=== PATIENT | male | born 1960 | race Caucasian/White ===

== ENCOUNTER 2016-12-26 16:45 | Inpatient (IN) | payer OTHER ==
--- NOTE | 2016-12-26 17:18 | PDOC ---
History of Present Illness <Adrien Frye - Last Filed: 12/26/16 17:27> - General History Source: Patient Exam Limitations: No Limitations - History of Present Illness Initial Comments: 12/26/16 17:30 Patient is a 56 year old male who was diagnosed with a 7-7.5 cm AAA 9 days ago and pending surgery who presents to the emergency department with intermittent stabbing abdominal pain for the last two hours. Patient is being evaluated for surgery by Dr. Duncan ([phone]). Patient denies any dizziness, light headedness, SOB, CP, back pain, weakness and numbness. BP 169/110 <Luis Valente - Last Filed: 12/27/16 10:18> - General Chief Complaint: Pain Stated Complaint: STOMACH PAIN Time Seen by Provider: 12/26/16 17:15 Past History <Adrien Frye - Last Filed: 12/26/16 17:27> - Past Medical History GI Disorders: Yes (AAA) HTN: Yes Other medical history: hx of alcohl abuse, cut back in november 2016 - Psycho/Social/Smoking Cessation Hx Anxiety: No Suicidal Ideation: No Smoking History: Never smoked Have you smoked in the past 12 months: No Information on smoking cessation initiated: No Hx Alcohol Use: No Drug/Substance Use Hx: No Substance Use Type: None <Luis Valente - Last Filed: 12/27/16 10:18> - Past Medical History Allergies/Adverse Reactions: Allergies Allergy/AdvReac Type Severity Reaction Status Date / Time No Known Allergies Allergy Verified 12/26/16 17:02 Home Medications: Ambulatory Orders Lisinopril 10 mg PO DAILY 12/26/16 Review of Systems - Review of Systems Able to Perform ROS?: Yes Is the patient limited Czech proficient: No Constitutional: No: Chills, Diaphoresis, Fever Respiratory: No: Shortness of Breath Cardiac (ROS): No: Chest Pain, Lightheadedness, Syncope ABD/GI: Yes: Other (intermittent stabbing abdominal pain and abdominal pulsations). No: Constipated, Diarrhea, Nausea, Vomiting : No: Dysuria Musculoskeletal: No: Back Pain Integumentary: Yes: Rash. No: Sweating Neurological: No: Headache, Numbness, Tingling, Weakness, Dizziness <uLis Valente - Last Filed: 12/27/16 10:18> *Physical Exam - Vital Signs Last Vital Signs Temp Pulse Resp BP Pulse Ox 98.8 F 86 18 139/117 100 12/26/16 17:03 12/26/16 17:03 12/26/16 17:03 12/26/16 17:03 12/26/16 17:03 <Adrien Frye - Last Filed: 12/26/16 17:27> - Vital Signs Last Vital Signs Temp Pulse Resp BP Pulse Ox 98.8 F 86 18 139/117 100 12/26/16 17:03 12/26/16 17:03 12/26/16 17:03 12/26/16 17:03 12/26/16 17:03 - Physical Exam General Appearance: Yes: Nourished, Appropriately Dressed. No: Apparent Distress HEENT: positive: EOMI, JENNIFER, Normal ENT Inspection Neck: positive: Supple. negative: Tender Respiratory/Chest: positive: Lungs Clear, Normal Breath Sounds. negative: Chest Tender, Respiratory Distress Cardiovascular: positive: Regular Rhythm, Regular Rate Comments:: 12/26/16 19:33 Equal pulses and BP in both arms Gastrointestinal/Abdominal: positive: Normal Bowel Sounds, Flat, Pulsatile Mass (right medial). negative: Tender, Distended Musculoskeletal: positive: Normal Inspection Integumentary: positive: Rash (chest) Neurologic: positive: couturiere II-XII NML intact, Fully Oriented, Alert, Normal Mood/ Affect <Luis Valente - Last Filed: 12/27/16 10:18> ED Treatment Course - LABORATORY CBC & Chemistry Diagram: 12/27/16 07:24 12/26/16 17:35 - RADIOLOGY Radiograph Interpretation: [id number] EXAM#: TYPE/EXAM: RESULT: [id number] CT/CHEST CTA CT/ABDOMEN CTA W/WO CONTRAST CT angiogram of the chest, abdomen, and pelvis: HISTORY: Abdominal aortic aneurysm. Rule out rupture. CT angiogram of the chest, abdomen, and pelvis is performed with intravenous contrast. 100 cc of Omnipaque 350 was injected intravenously. Axial images were obtained from the thoracic inlet through the pubic symphysis. Coronal and sagittal reconstructions are also provided. One or more of the following dose reduction techniques were used: automated exposure control, adjustment of the mA and/or kV according to patient size, use of iterative reconstruction technique. No comparison available. CHEST: Lungs/airway/pleura: Within normal limits. Heart and great vessels are within normal limits. Mediastinum and gutierrez are within normal limits. Chest wall and lower neck are within normal limits. ABDOMEN: The liver is unremarkable. The bile ducts are normal in caliber. No calcified gallstones are seen in the gallbladder and there is no gallbladder wall thickening. Pancreas is unremarkable. The spleen and adrenal glands are unremarkable. There is an 8 mm nonobstructing calcification in the inferior pole of the left kidney. There is no hydronephrosis. There is no significant intra-abdominal lymphadenopathy. The stomach and small and large bowel are unremarkable. Pelvis: The prostate gland appears enlarged. There is no significant pelvic lymphadenopathy. Vessels: There is a large fusiform aneurysmal dilatation of the infrarenal abdominal aorta measuring 7.9 AP by 7.4 transverse x 9.8 cm in craniocaudal dimension without CT evidence for rupture. There is a short segment dissecting flap at the most inferior aspect of the abdominal aorta just proximal to the bifurcation which extends into the right common iliac artery. The right common iliac artery measures up to about 3 cm in maximum dimension left common iliac artery measures up to about 3.7 cm in diameter. The right external iliac artery measures up to about 1.7 cm in maximum diameter and the left external iliac artery measures up to about 2 cm in maximum diameter and the right internal iliac artery measures up to about 1.2 cm in maximum diameter and the left internal iliac artery measures up to about 1.2 cm in maximal diameter. The internal and external iliac arteries are patent without dissection or occlusion. Renal and superior mesenteric arteries are patent and unremarkable. No suspicious intraosseous lesion is seen. IMPRESSION: Large fusiform aneurysmal dilatation of the infrarenal abdominal aorta measuring 7.9 AP by 7.4 in transverse x 9.8 cm in craniocaudal dimension without CT evidence of rupture. In addition there is a short segment dissecting flap at the most inferior aspect of the abdominal aorta just proximal to the bifurcation which extends caudally only to the right common iliac artery. The internal and external iliac arteries are patent without dissection or occlusion. <Luis Valente - Last Filed: 12/27/16 10:18> Medical Decision Making - Medical Decision Making 12/26/16 17:22 56 year old male with recent diagnosis of 7-7.5 cm AAA with stabbing abdominal pain and elevated BP to 169/110 Ddx includes but is not limited to aortic dissection, aortic rupture/leak, increased dilatation Plan: Manage SBP Presurgcal labs CBC, CMP, Lactic Acid, PT/INR, Type and Screen EKG Consult patient's vascular surgeon, Perla Hydrolazine 10 mg with repeat doses every 10 minutes to a SBP of 110 or max dose of 4x 12/26/16 19:09 CTA shows a small dissection with no tear and no rupture IMPRESSION: Large fusiform aneurysmal dilatation of the infrarenal abdominal aorta measuring 7.9 AP by 7.4 in transverse x 9.8 cm in craniocaudal dimension without CT evidence of rupture. In addition there is a short segment dissecting flap at the most inferior aspect of the abdominal aorta just proximal to the bifurcation which extends caudally only to the right common iliac artery. The internal and external iliac arteries are patent without dissection or occlusion. Spoke with Dr. Duncan who will be in to see the patient tonight He would like to have patient admitted to Dr. Ramesh's service He will be in to evaluate the patient and set any BP requirements 12/26/16 19:11 CBC WBC 6.5 K/mm3 (4.0-10.0) 12/26/16 17:35 RBC 4.46 M/mm3 (4.00-5.60) 12/26/16 17:35 Hgb 14.2 GM/dL (11.7-16.9) 12/26/16 17:35 Hct 41.8 % (35.4-49) 12/26/16 17:35 MCV 93.6 fl (80-96) 12/26/16 17:35 MCH 31.9 pg (25.7-33.7) 12/26/16 17:35 MCHC 34.0 g/dl (32.0-35.9) 12/26/16 17:35 RDW 13.6 % (11.9-15.9) 12/26/16 17:35 Plt Count 262 K/MM3 (134-434) 12/26/16 17:35 MPV 8.1 fl (7.5-11.1) 12/26/16 17:35 Neutrophils % 65.7 % (42.8-82.8) 12/26/16 17:35 Lymphocytes % 22.0 % (8-40) 12/26/16 17:35 Monocytes % 10.2 % (3.8-10.2) 12/26/16 17:35 Eosinophils % 1.5 % (0-4.5) 12/26/16 17:35 Basophils % 0.6 % (0-2.0) 12/26/16 17:35 12/26/16 19:16 CMP Sodium 139 mmol/L (136-145) 12/26/16 17:35 Potassium 4.4 mmol/L (3.5-5.1) 12/26/16 17:35 Chloride 104 mmol/L (98-107) 12/26/16 17:35 Carbon Dioxide 28 mmol/L (21-32) 12/26/16 17:35 Anion Gap 7 (8-16) L 12/26/16 17:35 BUN 19 mg/dL (7-18) H 12/26/16 17:35 Creatinine 0.7 mg/dL (0.7-1.3) 12/26/16 17:35 Creat Clearance w eGFR > 60 (>60) 12/26/16 17:35 Random Glucose 99 mg/dL (74-106) 12/26/16 17:35 Lactic Acid 0.9 mmol/L (0.4-2.0) 12/26/16 17:35 Calcium 9.7 mg/dL (8.5-10.1) 12/26/16 17:35 Total Bilirubin 0.4 mg/dL (0.2-1.0) 12/26/16 17:35 AST 11 U/L (15-37) L 12/26/16 17:35 ALT 22 U/L (12-78) 12/26/16 17:35 Alkaline Phosphatase 56 U/L (45-117) 12/26/16 17:35 Total Protein 7.0 g/dl (6.4-8.2) 12/26/16 17:35 Albumin 4.0 g/dl (3.4-5.0) 12/26/16 17:35 Elevated BUN, prerenal, patient given 1L NS (SBP in the 120-130s) Spoke with Gilda, patient to be admitted to tele under Luis David - Last Filed: 12/27/16 10:18> *DC/Admit/Observation/Transfer - Attestations Physician Attestion: 12/26/16 17:29 I, Dr. Adrien Frye, attest that this document has been prepared under my direction and personally reviewed by me in its entirety. I further attest, that it accurately reflects all work, treatment, procedures and medical decision -making performed by me. <Adrien Frye - Last Filed: 12/26/16 17:27> - Discharge Dispostion Admit: Yes - Attestations Physician Attestion: 12/26/16 19:59 I, Dr. Luis Valente, attest that this document has been prepared under my direction and personally reviewed by me in its entirety. I further attest, that it accurately reflects all work, treatment, procedures and medical decision -making performed by me. <Luis Valente - Last Filed: 12/27/16 10:18> Diagnosis at time of Disposition: AAA (abdominal aortic aneurysm) without rupture - Referrals
[2016-12-26] MEDS ORDERED: hydrALAZINE HCL 20 MG/ML VIAL ONE (17:31)
[2016-12-26] MEDS ORDERED: hydrALAZINE HCL 20 MG/ML VIAL IVPUSH ONE ×2 (17:32→17:56)
--- NOTE | 2016-12-26 17:33 | PDOC ---
Attending Attestation - Resident Resident Name: Luis Valente - ED Attending Attestation I have performed the following: I have examined & evaluated the patient, The case was reviewed & discussed with the resident, I agree w/resident's findings & plan, Exceptions are as noted - HPI HPI: 12/26/16 17:30 Uncontrolled Hypertension with Abdominal Pain in the setting of known AAA - Physicial Exam PE: 12/26/16 17:31 Hypertensive and Anxious..... Abdomen soft- non surgical - Medical Decision Making 12/26/16 17:[address] Valente's assesment and plan
[2016-12-26] MEDS ORDERED: METOPROLOL TARTRATE 5 MG/5 ML VIAL IVPUSH ONE ×3 (17:59→18:00)
[2016-12-26] MEDS ORDERED: METOPROLOL TARTRATE 5 MG/5 ML VIAL ONE (18:00)
[2016-12-26 18:11] LABS: BASOPHIL 0.6 % (0-2.0); EOSINOPHIL 1.5 % (0-4.5); MCH 31.9 pg (25.7-33.7); MEAN CELL VOLUME 93.6 fl (80-96); MEAN PLT VOLUME 8.1 fl (7.5-11.1); NEUTROPHILS 65.7 % (42.8-82.8); PLATELET COUNT 262 K/MM3 (134-434); RDW 13.6 % (11.9-15.9); WHITE BLOOD COUNT 6.5 K/mm3 (4.0-10.0)
[2016-12-26 18:23] LABS: INR 1.05 (0.82-1.09); PROTHROMBIN TIME (PATIENT) 11.6 SEC (9.98-11.88)
[2016-12-26 18:35] LABS: ANION GAP 7 (8-16); BILIRUBIN,TOTAL 0.4 mg/dL (0.2-1.0); CALCIUM 9.7 mg/dL (8.5-10.1); CO2 28 mmol/L (21-32); CREATININE 0.7 mg/dL (0.7-1.3); GLUCOSE,RANDOM 99 mg/dL (74-106); SGOT/AST 11 U/L (15-37); SGPT/ALT 22 U/L (12-78)
[2016-12-26 18:36] LABS: ALK PHOS 56 U/L (45-117)
[2016-12-26] MEDS ORDERED: SODIUM CHLORIDE 1,000 ML IV STA (18:51)
--- NOTE | 2016-12-26 20:03 | PN ---
Teaching Attending Note Name of Resident: Tramaine Ferris ATTENDING PHYSICIAN STATEMENT I saw and evaluated the patient. I reviewed the resident's note and discussed the case with the resident. I agree with the resident's findings and plan as documented. SUBJECTIVE: 56 M with pmhx of AAA, etoh abuse, who presented with stabbing abdominal pain. States he was diagnosed with 7-7.5cm AAA nine days ago. Denies any chest pain, pressure or shortness of breath. Denies any lightheadedness. States he did have a episode of epistaxis earlier today. OBJECTIVE: Physical: VS: Vital Signs Period Temp Pulse Resp BP Sys/Mccormick Pulse Ox Last 24 Hr 98.8 F 70-86 16-20 127-162/84-118 99-100 GEN:NAD, Resting in bed CARD: RRR S1, S2 RESP: CTAB ABD: BSx4, Palpable epigastric pulsatile mass EXT: - C/C/E CBCD WBC 6.5 K/mm3 (4.0-10.0) 12/26/16 17:35 RBC 4.46 M/mm3 (4.00-5.60) 12/26/16 17:35 Hgb 14.2 GM/dL (11.7-16.9) 12/26/16 17:35 Hct 41.8 % (35.4-49) 12/26/16 17:35 MCV 93.6 fl (80-96) 12/26/16 17:35 MCHC 34.0 g/dl (32.0-35.9) 12/26/16 17:35 RDW 13.6 % (11.9-15.9) 12/26/16 17:35 Plt Count 262 K/MM3 (134-434) 12/26/16 17:35 MPV 8.1 fl (7.5-11.1) 12/26/16 17:35 CMP Sodium 139 mmol/L (136-145) 12/26/16 17:35 Potassium 4.4 mmol/L (3.5-5.1) 12/26/16 17:35 Chloride 104 mmol/L (98-107) 12/26/16 17:35 Carbon Dioxide 28 mmol/L (21-32) 12/26/16 17:35 Anion Gap 7 (8-16) L 12/26/16 17:35 BUN 19 mg/dL (7-18) H 12/26/16 17:35 Creatinine 0.7 mg/dL (0.7-1.3) 12/26/16 17:35 Creat Clearance w eGFR > 60 (>60) 12/26/16 17:35 Random Glucose 99 mg/dL (74-106) 12/26/16 17:35 Calcium 9.7 mg/dL (8.5-10.1) 12/26/16 17:35 Total Bilirubin 0.4 mg/dL (0.2-1.0) 12/26/16 17:35 AST 11 U/L (15-37) L 12/26/16 17:35 ALT 22 U/L (12-78) 12/26/16 17:35 Alkaline Phosphatase 56 U/L (45-117) 12/26/16 17:35 Total Protein 7.0 g/dl (6.4-8.2) 12/26/16 17:35 Albumin 4.0 g/dl (3.4-5.0) 12/26/16 17:35 EKG: NSR Incomplete RBBB CT scan in ED with 4cm Left Common Iliac artery, 2.5 cm SERGEY aneurysm ASSESSMENT AND PLAN: 56 M with pmhx of HTN who presents with abdominal pain found to have AAA 1.) AAA wo rupture - If any worsening Abdominal Pain tonight will call Sx. Stat - Type and Screen - CBC and Coags for AM - NPO after midnight - CT sx. reccommendations appreciated, goal BP systolic <160 - Pain control - S/P Cefazolin 2.) HTN - Control to systolic <160 - Labetolol prn 3.) DVT Ppx - SCD Place in TELE
--- NOTE | 2016-12-26 20:06 | CONSULT ---
Consult Consult Specialty:: Vascular Surgery - History of Present Illness History of Present Illness: 56 year old man recently diagnoses with 8 cm AAA who developed lower abdominal discomfort today while walking vigorously. He denies any back or flank pain. He states he feels better at this time. He has no family history of aneurysm disease. He is very active and has run marathons in the past year. He has no heart disease. He states that 3 years ago he had severe lower back pain for 5 hours which resolved. He thought he had a kidney stone at that time. - History Source History Provided By: Patient - Past Medical History Cardio/Vascular: Yes: HTN - Past Surgical History Past Surgical History: Yes: None - Alcohol/Substance Use Hx Alcohol Use: No - Smoking History Smoking history: Never smoked Have you smoked in the past 12 months: No - Social History Usual Living Arrangement: Alone Home Medications - Allergies Allergies/Adverse Reactions: Allergies Allergy/AdvReac Type Severity Reaction Status Date / Time No Known Allergies Allergy Verified 12/26/16 17:02 - Home Medications Home Medications: Ambulatory Orders Lisinopril 10 mg PO DAILY 12/26/16 Review of Systems - Review of Systems HENT: reports: Epistaxis (Recent nosebleeds.) Physical Exam Vital Signs: Vital Signs Temperature 98.8 F 12/26/16 17:03 Pulse Rate 80 12/26/16 19:12 Respiratory Rate 18 12/26/16 19:12 Blood Pressure 134/98 12/26/16 19:12 O2 Sat by Pulse Oximetry (%) 99 12/26/16 19:12 Constitutional: Yes: Well Nourished, No Distress, Calm Eyes: Yes: Conjunctiva Clear, EOM Intact HENT: Yes: Atraumatic, Normocephalic Neck: Yes: Supple Cardiovascular: Yes: Regular Rate and Rhythm Respiratory: Yes: Regular Gastrointestinal: Yes: Soft, Pulsatile Mass (epigastrium to right of midline) Extremities: Yes: WNL Edema: No Peripheral Pulses WNL: Yes Labs: CBC, BMP 12/26/16 17:35 12/26/16 17:35 Imaging - Results Cat Scan: Image Reviewed (8 cm infrarenal AAA with distal dissection flap into right iliac artery. 4 cm left [id number] iliac artery, 2.5 cm right SERGEY aneurysm. External iliacs patent, 1 cm diameter.) Problem List - Problems (1) AAA (abdominal aortic aneurysm) without rupture Assessment/Plan: Very large aneurysm, probably a result of an aortic dissection several years ago. No evidence on CT of leak. Patient appears stable for surgery in AM to avoid emergency procedure with on-call staffing. If any new abdominal pain develops he will need surgery tonight. It is likely, based on history and CT findings, that he has a genetic connective tissue disorder, such as Yusra- Danlos. He will need genetic testing in the future. Code(s): I71.4 - ABDOMINAL AORTIC ANEURYSM, WITHOUT RUPTURE
[2016-12-26] MEDS ORDERED: LABETALOL HCL 5 MG/1 ML (100MG/20 ML VIAL) IVPUSH ONE (21:37)
[2016-12-26] MEDS ORDERED: ALPRAZolam 0.25 MG TABLET PO PRN (21:37)
[2016-12-26] MEDS ORDERED: morphine CARPU-JECT 4 MG/1 ML DISP.SYRIN IVPUSH PRN (21:48)
--- NOTE | 2016-12-26 21:52 | HP ---
CHIEF COMPLAINT: abdominal pain Vascular Surgeon: Dr. Duncan HISTORY OF PRESENT ILLNESS: 56yo M with PMH of HTN and a newly diagnosed 7.5cm AAA pending surgery, presents c/o of abdominal pain. Pt was out walking for exercise when pain began at 2pm. Pain is described as sharp, stabbing quality, non-radiating. Pt reports he went for a liver US last Tuesday (9 days ago), and AAA was found incidentally. Pt had CT same day and was referred to Dr. Duncan for vascular surgery. Pain is now resolved. Pt denies chest pain, dyspnea, SOB, lightheadedness, back or flank pain. ER course was notable for: (1) Lopressor, Hydralazine (2) EKG reveals NSR and incomplete RBBB PAST MEDICAL HISTORY: HTN, AAA PAST SURGICAL HISTORY: none Social History: Smoking: never smoked Alcohol: none Drugs: none Family History: no hx of aneurysm disease Allergies No Known Allergies Allergy (Verified 12/26/16 17:02) HOME MEDICATIONS: Home Medications Medication Instructions Recorded Lisinopril 10 mg PO DAILY 12/26/16 REVIEW OF SYSTEMS CONSTITUTIONAL: Absent: fever, chills, diaphoresis, generalized weakness, malaise, loss of appetite, weight change HEENT: Present: hx of epistasis Absent: rhinorrhea, nasal congestion, throat pain, ear pain, eye pain, visual changes CARDIOVASCULAR: Absent: chest pain, syncope, palpitations, irregular heart rate, lightheadedness , peripheral edema RESPIRATORY: Absent: cough, shortness of breath, dyspnea with exertion, orthopnea, wheezing, stridor, hemoptysis GASTROINTESTINAL: Absent: abdominal distension, nausea, vomiting, diarrhea, constipation, melena, hematochezia GENITOURINARY: Absent: hematuria, flank pain MUSCULOSKELETAL: Absent: myalgia, arthralgia, joint swelling, back pain, neck pain SKIN: Absent: rash, itching, pallor NEUROLOGIC: Absent: headache, dizziness, unsteady gait PHYSICAL EXAMINATION Last Vital Signs Temp Pulse Resp BP Pulse Ox 98.8 F 71 18 151/102 100 12/26/16 17:03 12/26/16 20:13 12/26/16 20:13 12/26/16 20:13 12/26/16 20:13 GENERAL: Awake, alert, and fully oriented, anxious. HEAD: Normal with no signs of trauma. EYES: Extraocular movements intact, sclera anicteric, conjunctiva clear. No lid lag. EARS, NOSE, THROAT: Moist mucous membranes. NECK: Trachea midline. No JVD. LUNGS: Breath sounds equal, clear to auscultation bilaterally. No wheezes, and no crackles. No accessory muscle use. HEART: Regular rate and rhythm, normal S1 and S2 without murmur, rub or gallop. ABDOMEN: (+) pulsatile mass in RUQ. Soft, nontender, not distended, normoactive bowel sounds, no guarding, no rebound. LOWER EXTREMITIES: Warm, well-perfused. No peripheral edema. NEUROLOGICAL: Normal speech. Normal gait. PSYCHIATRIC: Cooperative. Good eye contact. Appropriate mood and affect. SKIN: Warm, dry, normal turgor, no rashes or lesions noted. Laboratory Last Values WBC 6.5 K/mm3 (4.0-10.0) 12/26/16 17:35 RBC 4.46 M/mm3 (4.00-5.60) 12/26/16 17:35 Hgb 14.2 GM/dL (11.7-16.9) 12/26/16 17:35 Hct 41.8 % (35.4-49) 12/26/16 17:35 MCV 93.6 fl (80-96) 12/26/16 17:35 MCH 31.9 pg (25.7-33.7) 12/26/16 17:35 MCHC 34.0 g/dl (32.0-35.9) 12/26/16 17:35 RDW 13.6 % (11.9-15.9) 12/26/16 17:35 Plt Count 262 K/MM3 (134-434) 12/26/16 17:35 MPV 8.1 fl (7.5-11.1) 12/26/16 17:35 Neutrophils % 65.7 % (42.8-82.8) 12/26/16 17:35 Lymphocytes % 22.0 % (8-40) 12/26/16 17:35 Monocytes % 10.2 % (3.8-10.2) 12/26/16 17:35 Eosinophils % 1.5 % (0-4.5) 12/26/16 17:35 Basophils % 0.6 % (0-2.0) 12/26/16 17:35 INR 1.05 (0.82-1.09) 12/26/16 17:35 Sodium 139 mmol/L (136-145) 12/26/16 17:35 Potassium 4.4 mmol/L (3.5-5.1) 12/26/16 17:35 Chloride 104 mmol/L (98-107) 12/26/16 17:35 Carbon Dioxide 28 mmol/L (21-32) 12/26/16 17:35 Anion Gap 7 (8-16) L 12/26/16 17:35 BUN 19 mg/dL (7-18) H 12/26/16 17:35 Creatinine 0.7 mg/dL (0.7-1.3) 12/26/16 17:35 Creat Clearance w eGFR > 60 (>60) 12/26/16 17:35 Random Glucose 99 mg/dL (74-106) 12/26/16 17:35 Lactic Acid 0.9 mmol/L (0.4-2.0) 12/26/16 17:35 Calcium 9.7 mg/dL (8.5-10.1) 12/26/16 17:35 Total Bilirubin 0.4 mg/dL (0.2-1.0) 12/26/16 17:35 AST 11 U/L (15-37) L 12/26/16 17:35 ALT 22 U/L (12-78) 12/26/16 17:35 Alkaline Phosphatase 56 U/L (45-117) 12/26/16 17:35 Total Protein 7.0 g/dl (6.4-8.2) 12/26/16 17:35 Albumin 4.0 g/dl (3.4-5.0) 12/26/16 17:35 Blood Type A NEGATIVE 12/26/16 17:35 Antibody Screen Negative 12/26/16 17:35 ASSESSMENT/PLAN: 56yo M with PMH of HTN and a newly diagnosed 7.5cm AAA pending surgery, presents c/o of abdominal pain admitted to Telemetry. 1) abdominal pain - likely 2/2 7.5cm AAA - AAA likely 2/2 connective tissue disorder (such as Yusra Danlos) - Vascular Surgery consulted -> BP parameters = give 10mg Labetalol IVPush for SBP>160mmHg - if any worsening abdominal pain tonight -> call Vascular Surgery (Dr. Duncan) STAT - Type and Screen completed - f/u CBC and Coags - Cardiology Consult - f/u echo - S/P Cefazolin - Morphine 4mg prn for pain 2) HTN - maintain SBP > 160mmHg - cont. home med of Lisinopril 10mg PO daily 3) anxiety - Xanax 0.25mg PO tid prn for anxiousness 4) FEN - Fluids: none at this time - Electrolytes: wnl, cont. to monitor - Nutrition: npo after midnight pending open abdominal surgery tomorrow 5) Prophylaxis - bhumi SCDs for DVT prophylaxis Visit type - Emergency Visit Emergency Visit: Yes ED Registration Date: 12/26/16 Care time: The patient presented to the Emergency Department on the above date and was hospitalized for further evaluation of their emergent condition. - New Patient This patient is new to me today: Yes Date on this admission: 12/26/16 - Critical Care Critical Care patient: No
[2016-12-26] MEDS ORDERED: LISINOPRIL 5 MG TABLET (FP) ONE (23:02)
[2016-12-26] MEDS: LISINOPRIL 10 MG TABLET (FP) PO SCH (23:04)
[2016-12-26 23:41] VITALS: BMI 23.5
[2016-12-27] MEDS ORDERED: LABETALOL HCL 5 MG/1 ML (100MG/20 ML VIAL) IVPUSH PRN ×2 (06:43→06:52)
[2016-12-27] MEDS ORDERED: LIDOCAINE HCL 1%, 10 MG/ML (20ML VIAL) ONE (06:45)
[2016-12-27] MEDS ORDERED: DESFLURANE GAS 240 ML BOTTLE IH ONE (06:46)
[2016-12-27 07:35] LABS: MCH 32.2 pg (25.7-33.7); MCHC 34.6 g/dl (32.0-35.9); MEAN CELL VOLUME 93.1 fl (80-96); MEAN PLT VOLUME 8.3 fl (7.5-11.1); PLATELET COUNT 240 K/MM3 (134-434); RDW 13.6 % (11.9-15.9); WHITE BLOOD COUNT 5.4 K/mm3 (4.0-10.0)
[2016-12-27] MEDS ORDERED: NITROGLYCERIN 25MG/D5W 250ML 250 ML IVPB ONE (07:46)
[2016-12-27] MEDS ORDERED: niCARdipine HCL 25 MG/10 ML AMPUL IVPB ONE (07:46)
[2016-12-27 08:00] LABS: INR 1.1 (0.82-1.09); PROTHROMBIN TIME (PATIENT) 12.1 SEC (9.98-11.88)
[2016-12-27 08:03] LABS: ACTIVATED PTT 27.5 SECONDS (26.9-34.4)
[2016-12-27] MEDS ORDERED: NOREPINEPHRINE BITARTRATE 4 MG/4 ML ML IV ONE (08:48)
--- NOTE | 2016-12-27 08:51 | CON.CARD ---
Consult Consult Specialty:: cardio Referred by:: andrzej Reason for Consultation:: preop - History of Present Illness Chief Complaint: AAA History of Present Illness: 56 yo male recently diagnosed with AAA on routine physical exam, here with abd pain. saw dr donnelly as outpt, diagnosed with 8cm AAA with chronic dissection. +HTN pt has no known h/o HPL, DM, cig smoking. there is no FH of aorta disease. father suddenly in [place] at age 68, diagnosed with heart attack, details/sx's uncertain to pt--no autopsy done. he was stable and asymptomatic in hospital, plan for surgery today he exercises regularly, has run a marathon within the past year. climbs 5 flights of stairs regularly after his cardio workout. never cp, sob, exertional fatigue. no abd pain at present remote ex cigs dx'd HTN in 2012 after not seeing a doctor for 30 yrs--bp was 150/100 then, though he has known white coat HTN he says. has been treating with diet/Na restriction. more recently on meds (2 mo ago) b/c home readings since 2017 have been 150/100 range. prior to that he was consistently 130s/80-90 - Past Medical History Cardio/Vascular: Yes: HTN - Past Surgical History Past Surgical History: Yes: None - Alcohol/Substance Use Hx Alcohol Use: Yes (12/23 last drink-6 drinks) - Smoking History Smoking history: Former smoker Have you smoked in the past 12 months: No - Social History Usual Living Arrangement: Alone Home Medications - Allergies Allergies/Adverse Reactions: Allergies Allergy/AdvReac Type Severity Reaction Status Date / Time No Known Allergies Allergy Verified 12/26/16 17:02 - Home Medications Home Medications: Ambulatory Orders Lisinopril 10 mg PO DAILY 12/26/16 Family Disease History - Family Disease History Family Disease History: Heart Disease: Father Review of Systems - Review of Systems Constitutional: denies: Chills, Fever Eyes: denies: Eye Pain HENT: denies: Nasal Congestion Neck: denies: Stiffness Cardiovascular: denies: Palpitations Respiratory: denies: Orthopnea, PND Gastrointestinal: denies: Diarrhea, Rectal Bleeding Genitourinary: denies: Burning, Hematuria Musculoskeletal: denies: Muscle Pain Integumentary: denies: Rash Neurological: denies: Numbness, Seizure, Syncope Endocrine: denies: Excessive Sweating Hematology/Lymphatic: denies: Excessive Bleeding Vital Signs: Vital Signs Temperature 97.6 F 12/27/16 06:00 Pulse Rate 63 12/27/16 06:00 Respiratory Rate 16 12/27/16 06:00 Blood Pressure 142/96 12/27/16 06:00 O2 Sat by Pulse Oximetry (%) 97 12/26/16 23:15 Constitutional: Yes: Well Nourished, No Distress Eyes: No: Sclera Icterus HENT: No: Nasal Congestion Neck: No: Decreased ROM Respiratory: Yes: CTA Bilaterally. No: Accessory Muscle Use, Rales, Wheezes Gastrointestinal: Yes: Normal Bowel Sounds, Palpable Mass (diffuse pulsatile aorta palpable). No: Distention, Hepatomegaly, Tenderness Cardiovascular: Yes: Regular Rate and Rhythm JVD: No Carotid Bruit: No PMI: Non-Displaced Heart Sounds: Yes: S1, S2. No: Gallop Murmur: No: Systolic Murmur, Diastolic Murmur Musculoskeletal: Yes: Other (No kyphosis) Extremities: No: Cold, Cyanosis Edema: No Peripheral Pulses: 2+ Left Carotid, 2+ Right Carotid, 2+ Left Doralis Pedis, 2+ Right Dorsalis Pedis Integumentary: No: Jaundice Neurological: Yes: Alert, Oriented (x3) Psychiatric: No: Agitated - Other Data Labs, Other Data: CBC, BMP 12/27/16 07:24 INR, PTT INR 1.10 (0.82-1.09) 12/27/16 07:24 Laboratory Tests 12/26/16 12/27/16 17:35 07:24 WBC 5.4 Hgb 13.8 Plt Count 240 Sodium 139 Potassium 4.4 Carbon Dioxide 28 BUN 19 H Creatinine 0.7 AST 11 L ALT 22 tele: NSR Imaging - Results Cat Scan: Report Reviewed Assessment/Plan ECG 12/26: NSR, nl axis/intervals; no path q's, no ST-T abn AAA: -8cm AAA (infrarenal), pt clinically stable, plan for surgery today -possible RFs included untreated BP x many yrs prior to dx in 2012 (was 150/100 range at time of dx)--BP controlled well until past 6 mo or so -father with h/o sudden (presumed [place])--? was aortic rupture -check lipid panel here -diast BP here initially 95-117--suspect occult chronic HTN may be cause of his aorta aneurysm here -agree pt should have outpatient genetic testing for aortopathies including Marfan's, Loewys-Peter, and vascular Ehler's Danlos (interestingly, no atherosclerotic disease of other vessels is noted on CTA chest/abdomen here) HTN: -high DBP on admission, improved after iv hydral, iv BB -cont home lisinopril, add po metoprolol and amlodipine -strict bp control targets will be warranted in future even after AAA repair, to prevent recurrent dz preop CV eval: -Revised CV Risk Index = 0 -excellent exercise status (long distance runner), never any sx of active ischemic or structural heart dz -phys exam WNL cardiac and carotids -for high risk vascular surgery -pt at intermediate risk for periop CV complications. no cardiac testing is indicated. -cont BB, proceed with surgery
[2016-12-27 09:40] LABS: CHOLESTEROL 182 mg/dL (50-200)
[2016-12-27 10:12] LABS: LDL CHOLESTEROL (ONLY SJRH) 97 mg/dL (5-100)
[2016-12-27] MEDS: LISINOPRIL 10 MG TABLET (FP) PO SCH ×2 (10:21→11:10)
[2016-12-27] MEDS ORDERED: METOPROLOL TARTRATE 25 MG TABLET (FP) PO SCH (11:15)
--- NOTE | 2016-12-27 11:24 | EKG ---
Test Reason : Blood Pressure : / mmHG Vent. Rate : 081 BPM Atrial Rate : 081 BPM P-R Int : 158 ms QRS Dur : 106 ms QT Int : 404 ms P-R-T Axes : 023 024 052 degrees QTc Int : 469 ms NORMAL SINUS RHYTHM INCOMPLETE RIGHT BUNDLE BRANCH BLOCK BORDERLINE ECG NO PREVIOUS ECGS AVAILABLE Confirmed by ANGIE QUINONES MD ([id number]) on 12/27/2016 11:24:15 AM Referred By: Confirmed By:ANGIE QUINONES MD
[2016-12-27] MEDS ORDERED: CEFAZOLIN 2 GM/D5W 50 ML IVPB ONE (12:00)
[2016-12-27] MEDS ORDERED: ePHEDrine SULFATE 50 MG/1 ML AMPULE ONE ×2 (12:37→12:41)
[2016-12-27] MEDS ORDERED: ETOMIDATE 20 MG/10 ML AMPUL IVPUSH ONE (12:47)
[2016-12-27] MEDS ORDERED: MIDAZOLAM HCL 2 MG/2 ML SINGLE DOSE VIAL ONE (12:50)
[2016-12-27] MEDS ORDERED: HEPARIN NA (PORCINE) 5,000 UNITS/ML 1ML VIAL ONE ×3 (12:53→16:14)
[2016-12-27] MEDS ORDERED: LIDOCAINE HCL 2% (20ML MULTI-DOSE VIAL) NR ONE (13:02)
[2016-12-27] MEDS ORDERED: ROCURONIUM BROMIDE 50 MG/5 ML VIAL ONE ×4 (13:04→17:16)
[2016-12-27] MEDS ORDERED: SODIUM CHLORIDE 0.9% P/F 10 ML VIAL IJ ONE ×2 (13:23→20:15)
[2016-12-27] MEDS ORDERED: ceFAZolin SODIUM 1 GM VIAL ONE ×2 (13:23→20:15)
[2016-12-27] MEDS ORDERED: ceFAZolin SODIUM 1 GM VIAL IVPB ONE (13:25)
[2016-12-27] MEDS ORDERED: OXYMETAZOLINE 0.05% NASAL SOLUTION 15 ML BOTTLE NS ONE (14:15)
[2016-12-27] MEDS ORDERED: FUROSEMIDE 40 MG/4 ML INJECTABLE VIAL ONE (16:35)
--- NOTE | 2016-12-27 16:45 | PN ---
Progress Note (short form) - Note Progress Note: Attempted to see patient multiple times today but was in the OR. Will see tomorrow.
[2016-12-27] MEDS ORDERED: GLYCOPYRROLATE 0.2 MG/1 ML VIAL ONE (18:43)
[2016-12-27] MEDS ORDERED: METOPROLOL TARTRATE 5 MG/5 ML VIAL ONE (18:43)
[2016-12-27] MEDS ORDERED: NEOSTIGMINE METHYLSULFATE 0.5 MG/ML - 10 ML MDV ONE (18:44)
[2016-12-27] MEDS ORDERED: BUPIVACAINE HCL/PF 0.25% (2.5MG/ML) 10 ML VIAL ONE (18:51)
[2016-12-27] MEDS ORDERED: POVIDONE-IODINE OINTMENT 10% - 28.4 GM TUBE ONE (19:10)
--- NOTE | 2016-12-27 19:50 | OP ---
Operative Note - Note: Operative Date: 12/27/16 Pre-Operative Diagnosis: Abdominal aortic and bilateral iliac artery aneurysms Operation: Open repair of abdominal aortic aneurysm with right iliac and left femoral bypass. Findings: Large infrarenal and bilateral iliac aneurysms. 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 Implants: 18 x9 mm Hemashield graft Post-Operative Diagnosis: Same as Pre-op Surgeon: Ruddy Duncan [employer] Lead: Nahed Juarez Anesthesiologist/AUTOMATIC FOLDER SEAMER: Evans Santiago Anesthesia: General, Epidural Specimens Removed: Biopsy of aneurysm wall. Estimated Blood Loss (mls): 2,000 Blood Volume Replaced (mls): 800 (cell saver) Operative Report Dictated: Yes
[2016-12-27] MEDS ORDERED: LACTATED RINGERS SOLUTION 1,000 ML IV SCH ×2 (20:00→20:15)
[2016-12-27] MEDS ORDERED: PROMETHAZINE HCL 25 MG/1 ML VIAL IVPUSH PRN ×2 (20:06→20:32)
[2016-12-27] MEDS ORDERED: ONDANSETRON 4 MG/2 ML VIAL IVPUSH PRN ×2 (20:06→20:32)
[2016-12-27] MEDS ORDERED: FENTANYL/BUPIVACAINE/NS/PF - PCEA - 50 ML DISP.SYRIN EP SCH ×3 (20:15→21:34)
[2016-12-27 20:17] LABS: MCH 31.4 pg (25.7-33.7); MCHC 33.6 g/dl (32.0-35.9); MEAN CELL VOLUME 93.5 fl (80-96); MEAN PLT VOLUME 7.7 fl (7.5-11.1); PLATELET COUNT 206 K/MM3 (134-434); RDW 13.5 % (11.9-15.9); WHITE BLOOD COUNT 14.2 K/mm3 (4.0-10.0)
[2016-12-27 20:29] LABS: INR 1.13 (0.82-1.09); PROTHROMBIN TIME (PATIENT) 12.5 SEC (9.98-11.88)
[2016-12-27 20:32] LABS: ACTIVATED PTT 22.2 SECONDS (26.9-34.4)
[2016-12-27] MEDS ORDERED: morphine CARPU-JECT 4 MG/1 ML DISP.SYRIN IVPUSH PRN (20:32)
[2016-12-27] MEDS ORDERED: ALPRAZolam 0.25 MG TABLET PO PRN (20:32)
[2016-12-27] MEDS ORDERED: CEFAZOLIN (PRE-DOCKED) 50 ML IVPB SCH (21:00)
[2016-12-27 21:02] LABS: ALBUMIN 2.4 g/dl (3.4-5.0); ANION GAP 6 (8-16); BILIRUBIN,TOTAL 0.8 mg/dL (0.2-1.0); CALCIUM 8.5 mg/dL (8.5-10.1); CO2 25 mmol/L (21-32); CREATININE 0.9 mg/dL (0.7-1.3); GLUCOSE,RANDOM 173 mg/dL (74-106); SGOT/AST 11 U/L (15-37); SGPT/ALT 16 U/L (12-78); TOT PROT 4.5 g/dl (6.4-8.2)
[2016-12-27 21:03] LABS: ALK PHOS 36 U/L (45-117)
[2016-12-27] MEDS: METOPROLOL TARTRATE 25 MG TABLET (FP) PO SCH (22:40)
[2016-12-27] MEDS: LACTATED RINGERS SOLUTION 1,000 ML IV SCH (22:40)
[2016-12-27] MEDS ORDERED: SODIUM CHLORIDE 0.9% 1000 ML INFUS.BAG IV ONE (23:45)
--- NOTE | 2016-12-27 23:50 | CONSULT ---
Consult - text type - Consultation Consultation Note: PULM/CCM Pt seen and examined in ICU CC; POD #0 AAA repair (Perla) HPI: 56 year old man recent dx of 8 cm AAA , presented to ED few days ago with acute abdominal pain c/f acute on chronic dissection. Admitted to floor, seen by Dr Duncan and taken to OR today for repair. Cleared by cardiology/Dr Boyer prior to OR. Underwent open repair of abdominal aortic aneurysm with right iliac and left femoral bypass, 18 x 9mm graft placed. Had 100cc blood loss with 800 in cellsaver. Extubated in PACU. Low grade hypotension after coming out of OR, requiring fluid bolus. Had good distal perfusion bilaterally. Moderate pain despite epidural post op, requiring fent pushes. Social History Smoking history Former smoker Have you smoked in the past 12 No months Hx Alcohol Use Yes: 12/23 last drink-6 drinks Past Medical History Cardio/Vascular HTN Past Surgical History Past Surgical History None Ambulatory Orders Lisinopril 10 mg PO DAILY 12/26/16 Current Medications Alprazolam (Xanax -) 0.25 mg PO Q8H PRN PRN Reason: ANXIETY Amlodipine Besylate (Norvasc -) 5 mg PO DAILY [facility] Enoxaparin Sodium (Lovenox -) 40 mg SQ DAILY [facility] Fentanyl/Bupivacaine/Sodium Chlor (Bupivicaine 0.125%/Fentanyl 2mcg/Ml Pcea -) 50 ml EP ASDIR [facility] PRN Reason: Protocol Last Admin: 12/27/16 22:00 Dose: 50 ml Cefazolin Sodium (Ancef 1gm Ivpb (Pre-Docked)) 50 mls @ 100 mls/hr IVPB Q8H [facility] Stop: 12/28/16 05:29 Last Admin: 12/27/16 22:27 Dose: Not Given Lactated Ringer's (Lactated Ringers Solution) 1,000 mls @ 125 mls/hr IV ASDIR [facility] Last Admin: 12/27/16 22:40 Dose: 125 mls/hr Lisinopril (Prinivil) 10 mg PO DAILY [facility] Metoprolol Tartrate (Lopressor -) 25 mg PO BID [facility] Last Admin: 12/27/16 22:40 Dose: Not Given Morphine Sulfate (Morphine Injection -) 4 mg IVPUSH Q3H PRN PRN Reason: PAIN Ondansetron HCl (Zofran Injection) 4 mg IVPUSH Q6H PRN PRN Reason: NAUSEA AND/OR VOMITING Stop: 12/28/16 02:07 Promethazine HCl (Phenergan Injection -) 12.5 mg IVPUSH Q6H PRN PRN Reason: NAUSEA-FOR RESCUE AFTER 15 MIN Stop: 12/28/16 02:07 ROS: 10 pt review of systems unrevealing except as per HPI> Imaging reviewed. CBC, BMP 12/27/16 20:00 12/27/16 20:00 Vital Signs Temp 97.7 F 12/27/16 21:20 Pulse 71 12/27/16 22:46 Resp 17 12/27/16 22:46 BP 91/70 12/27/16 22:46 Pulse Ox 98 12/27/16 22:05 Intake & Output 12/26/16 12/27/16 12/27/16 23:59 11:59 23:59 Intake Total 5860 Output Total 2980 Balance 2880 Weight 80.921 kg Intake: IV 5050 Lactated Ringers Solution 125 1,000 ml @ 125 mls/hr IV ASDIR [facility] Rx#: [id number] Blood Product 810 Output: Urine 980 Estimated Blood Loss 1999 Other: Voiding Method Toilet Toilet Indwelling Catheter # Unmeasured Voids Void 2 Height 6 ft 1 in Body Mass Index (BMI) 23.5 Weight Measurement Method Standing Scale Weight Measurement Method Est/Stated by Patient PE: Gen: non toxic, awake, alert HEENT: PERRL, non icteric, EOMI, no jvp, RIJ TLC CDI PULM: clear anterior, no wheezes, no distres CV: RRR< no m/r/g appreciated ABD: wound dressed, dry, moderate diffuse pain EXT: cool all 4 ext, doppler + Bilateral low ext NEURO: non focal A/ 56 y/o man with AAA, now POD #0 after open repair with Perla P/ -overnight ICU observation -serial LE perfusion check -pain control with fent pushes, epidural in place -repeat CBC in am -Perla for any signs of poor distal perfusion -maintain adequate BP, SPB >100<140. -PPI, venodynes. -OOB/ambulation per Surgery. Helio Balderas [facility] [id number]
[2016-12-28] MEDS ORDERED: SODIUM CHLORIDE 0.9% 1000 ML INFUS.BAG IV ONE ×2 (00:05→04:29)
[2016-12-28] MEDS ORDERED: CEFAZOLIN 1 GM/D5W 50 ML IVPB SCH (02:00)
[2016-12-28 02:46] LABS: MCH 31.8 pg (25.7-33.7); MCHC 33.6 g/dl (32.0-35.9); MEAN CELL VOLUME 94.6 fl (80-96); MEAN PLT VOLUME 8.4 fl (7.5-11.1); PLATELET COUNT 177 K/MM3 (134-434); RDW 13.4 % (11.9-15.9); WHITE BLOOD COUNT 13.4 K/mm3 (4.0-10.0)
[2016-12-28] MEDS ORDERED: NOREPINEPHRINE BITARTRATE 4 MG/4 ML ML IV ONE (03:29)
[2016-12-28] MEDS ORDERED: DOPAMINE 400 MG/D5W - 250 ML IVPB ONE (04:12)
[2016-12-28] MEDS ORDERED: ATROPINE SULFATE 1 MG/10 ML DISP.SYRIN ONE (04:23)
[2016-12-28 04:54] LABS: ARTERIAL BLD GAS O2 SATURATION 98.6 % (90-98.9); ARTERIAL BLOOD GAS BASE EXCESS -2.5 meq/l (-2-2); ARTERIAL BLOOD GAS HCO3 22.1 meq/L (22-26); ARTERIAL BLOOD GAS pH 7.37 (7.35-7.45)
[2016-12-28 04:55] LABS: ALLENS TEST POSITIVE; ART PUNCT SITE LEFT RADIAL; PT. ON O2? 2
[2016-12-28 04:56] LABS: LPM/O2% NASAL CANNULA
[2016-12-28] MEDS: CEFAZOLIN (PRE-DOCKED) 50 ML IVPB SCH ×2 (04:56→11:33)
[2016-12-28] MEDS: DOPAMINE HCL 400,000 MCG in SODIUM CHLORIDE 240 ML IV SCH ×2 (04:57→05:05)
[2016-12-28] MEDS: ONDANSETRON 4 MG/2 ML VIAL IVPUSH PRN ×2 (05:00→10:18)
[2016-12-28 06:58] LABS: BASOPHIL 0.1 % (0-2.0); EOSINOPHIL 0.1 % (0-4.5); MCH 32.1 pg (25.7-33.7); MCHC 34.1 g/dl (32.0-35.9); MEAN PLT VOLUME 8.4 fl (7.5-11.1); NEUTROPHILS 86.3 % (42.8-82.8); PLATELET COUNT 185 K/MM3 (134-434); RDW 13.9 % (11.9-15.9); WHITE BLOOD COUNT 11.8 K/mm3 (4.0-10.0)
[2016-12-28 07:12] LABS: INR 1.2 (0.82-1.09); PROTHROMBIN TIME (PATIENT) 13.2 SEC (9.98-11.88)
[2016-12-28 07:14] LABS: ACTIVATED PTT 24.7 SECONDS (26.9-34.4)
[2016-12-28 07:19] LABS: ALBUMIN 2.4 g/dl (3.4-5.0); ANION GAP 8 (8-16); CALCIUM 7.8 mg/dL (8.5-10.1); CO2 24 mmol/L (21-32); GLUCOSE,RANDOM 145 mg/dL (74-106); MAGNESIUM 1.6 mg/dL (1.8-2.4)
[2016-12-28 07:24] LABS: ALK PHOS 35 U/L (45-117); BILIRUBIN,DIRECT 0.2 mg/dL (0.0-0.2); BILIRUBIN,TOTAL 0.6 mg/dL (0.2-1.0); CREATININE 1.2 mg/dL (0.7-1.3); PHOSPHOROUS 3.8 mg/dL (2.5-4.9); SGOT/AST 16 U/L (15-37); SGPT/ALT 16 U/L (12-78); TOT PROT 4.7 g/dl (6.4-8.2)
[2016-12-28 08:10] LABS: CPK 372 IU/L (39-308); TROPONIN I < 0.02 ng/ml (0.00-0.05)
[2016-12-28] MEDS: LACTATED RINGERS SOLUTION 1,000 ML IV SCH ×2 (08:27→22:20)
--- NOTE | 2016-12-28 08:55 | PN ---
Progress Note (short form) - Note Progress Note: POD 1 Awake and alert, no c/o BP 90 systolic, HR 80 Abd full, dressing dry Ext 1+ edema, feet warm. Triphasic DP and PT bilat Hgb 14 Cr1.2 Post-op hypotension due to third space fluid loss. Titrate Dopamine as needed along with IV fluids. Bed rest today. Maintain epidural. Problem List - Problems (1) AAA (abdominal aortic aneurysm) without rupture Code(s): I71.4 - ABDOMINAL AORTIC ANEURYSM, WITHOUT RUPTURE
[2016-12-28] MEDS: ALBUMIN HUMAN 25% 12.5 GM/50 ML VIAL IVPB SCH ×4 (09:15→11:15)
[2016-12-28] MEDS: METOPROLOL TARTRATE 25 MG TABLET (FP) PO SCH (09:43)
[2016-12-28] MEDS ORDERED: LISINOPRIL 10 MG TABLET (FP) PO SCH (10:00)
[2016-12-28] MEDS ORDERED: PANTOPRAZOLE SODIUM 40 MG in SODIUM CHLORIDE 100 ML IVPB SCH (10:00)
[2016-12-28] MEDS ORDERED: amLODIPine BESYLATE 5 MG TABLET (FP) PO SCH ×2 (10:00)
[2016-12-28] MEDS ORDERED: ENOXAPARIN NA (PORCINE) 40 MG/0.4 ML DISP.SYRIN SQ SCH (10:00)
[2016-12-28] MEDS: PANTOPRAZOLE SODIUM 40 MG/100 ML PRE-DOCKED IVPB SCH (10:10)
[2016-12-28] MEDS ORDERED: MAGNESIUM SULF 50% (8.12 MEQ/2 ML-1 GM VIAL) IVPB ONE (10:22)
--- NOTE | 2016-12-28 10:29 | PN ---
Progress Note (short form) - Note Progress Note: Chief Complaint: AAA/pre-op clearance S: s/p surgery yesterday. bp's running low 2/2 blood loss/fluid shifts during surgery. on dopamine. pt without complaints. no cp, palps, dizziness, sob. remains npo Current Medications Albumin Human (Albumin Human 25%) 25 gm IVPB Q30M [facility] Stop: 12/28/16 10:31 Last Admin: 12/28/16 09:45 Dose: 25 gm Alprazolam (Xanax -) 0.25 mg PO Q8H PRN PRN Reason: ANXIETY Enoxaparin Sodium (Lovenox -) 40 mg SQ DAILY [facility] Fentanyl/Bupivacaine/Sodium Chlor (Bupivicaine 0.125%/Fentanyl 2mcg/Ml Pcea -) 50 ml EP ASDIR [facility] PRN Reason: Protocol Last Admin: 12/27/16 22:00 Dose: 50 ml Lactated Ringer's (Lactated Ringers Solution) 1,000 mls @ 125 mls/hr IV ASDIR [facility] Last Admin: 12/28/16 08:27 Dose: 125 mls/hr Cefazolin Sodium (Ancef 1gm Ivpb (Pre-Docked)) 50 mls @ 100 mls/hr IVPB Q8H [facility] Stop: 12/28/16 12:29 Last Admin: 12/28/16 04:56 Dose: 100 mls/hr Dopamine HCl 400,000 mcg/ (Sodium Chloride) 250 mls @ 6.06 mls/hr IV TITR [facility]; 2 MCG/KG/MIN PRN Reason: Protocol Last Admin: 12/28/16 05:05 Dose: 21.24 mls/hr Magnesium Sulfate (Magnesium Sulfate) 2 gm IVPB ONCE ONE Stop: 12/28/16 10:23 Morphine Sulfate (Morphine Injection -) 4 mg IVPUSH Q3H PRN PRN Reason: PAIN Ondansetron HCl (Zofran Injection) 4 mg IVPUSH Q4H PRN PRN Reason: NAUSEA AND/OR VOMITING Stop: 12/28/16 16:28 Last Admin: 12/28/16 10:18 Dose: 4 mg Pantoprazole Sodium (Protonix 40mg Ivpb (Pre-Docked)) 40 mg IVPB DAILY [facility] Last Admin: 12/28/16 10:10 Dose: 40 mg Vital Signs - 24 hr 12/27/16 12/27/16 12/27/16 11:11 19:52 20:05 Temperature 100.1 F H Pulse Rate 77 58 L 57 L Respiratory 18 14 16 Rate Blood Pressure 150/104 113/73 118/71 O2 Sat by Pulse 99 98 Oximetry (%) 12/27/16 12/27/16 12/27/16 20:20 20:35 20:50 Temperature Pulse Rate 55 L 59 L 59 L Respiratory 14 14 18 Rate Blood Pressure 118/77 114/83 114/83 O2 Sat by Pulse 99 99 99 Oximetry (%) 12/27/16 12/27/16 12/27/16 21:00 21:05 21:20 Temperature 97.8 F 97.7 F Pulse Rate 59 L 58 L 52 L Respiratory 17 14 17 Rate Blood Pressure 124/67 115/78 121/84 O2 Sat by Pulse 99 99 100 Oximetry (%) 12/27/16 12/27/16 12/27/16 22:00 22:05 22:10 Temperature Pulse Rate 71 69 74 Respiratory 18 18 17 Rate Blood Pressure 124/87 109/63 102/71 O2 Sat by Pulse 98 98 Oximetry (%) 12/27/16 12/27/16 12/27/16 22:15 22:30 22:45 Temperature Pulse Rate 75 74 62 Respiratory 18 18 18 Rate Blood Pressure 108/74 109/74 82/55 O2 Sat by Pulse Oximetry (%) 12/27/16 12/28/16 12/28/16 22:46 00:00 01:00 Temperature Pulse Rate 71 66 59 L Respiratory 17 18 18 Rate Blood Pressure 91/70 86/63 79/63 O2 Sat by Pulse Oximetry (%) 12/28/16 12/28/16 12/28/16 02:00 02:54 04:00 Temperature 97.6 F Pulse Rate 52 L 62 64 Respiratory 16 18 15 Rate Blood Pressure 82/55 82/55 79/54 O2 Sat by Pulse Oximetry (%) 12/28/16 12/28/16 12/28/16 06:00 08:00 08:41 Temperature 98.4 F Pulse Rate 85 77 77 Respiratory 18 19 16 Rate Blood Pressure 100/64 90/55 91/51 O2 Sat by Pulse Oximetry (%) 12/28/16 12/28/16 08:44 10:00 Temperature 98.3 F Pulse Rate 76 Respiratory 16 16 Rate Blood Pressure 108/68 O2 Sat by Pulse 98 Oximetry (%) Intake & Output 12/26/16 12/27/16 12/28/16 12/29/16 07:59 07:59 07:59 07:59 Intake Total 29772 Output Total 3690 Balance 6920 Weight 178 lb 6.4 oz 193 lb 9.6 oz Constitutional: Yes: Well Nourished, No Distress Eyes: No: Sclera Icterus HENT: No: Nasal Congestion Neck: No: Decreased ROM Respiratory: Yes: CTA Bilaterally. No: Accessory Muscle Use, Rales, Wheezes Gastrointestinal: Yes: Normal Bowel Sounds, Palpable Mass (diffuse pulsatile aorta palpable). No: Distention, Hepatomegaly, Tenderness Cardiovascular: Yes: Regular Rate and Rhythm JVD: No Carotid Bruit: No PMI: Non-Displaced Heart Sounds: Yes: S1, S2. No: Gallop Murmur: No: Systolic Murmur, Diastolic Murmur Musculoskeletal: Yes: Other (No kyphosis) Extremities: No: Cold, Cyanosis Edema: No Peripheral Pulses: 2+ Left Carotid, 2+ Right Carotid, 2+ Left Doralis Pedis, 2+ Right Dorsalis Pedis Integumentary: No: Jaundice Neurological: Yes: Alert, Oriented (x3) Psychiatric: No: Agitated - Other Data Labs, Other Data: CBC, BMP 12/28/16 06:10 12/28/16 06:10 Laboratory Tests 12/27/16 12/27/16 12/28/16 08:45 20:00 01:30 Hgb 13.2 INR ABG pH ABG pCO2 at Pt Temp ABG pO2 at Pt Temp ABG HCO3 BUN 13 D Creatinine 0.9 D Magnesium Troponin I Albumin Total LDL Cholesterol 97 12/28/16 12/28/16 12/28/16 04:28 06:10 06:10 Hgb INR 1.20 H ABG pH 7.37 ABG pCO2 at Pt Temp 39.6 ABG pO2 at Pt Temp 113.0 H ABG HCO3 22.1 BUN Creatinine Magnesium 1.6 L Troponin I Albumin 2.4 L Total LDL Cholesterol 12/28/16 06:10 Hgb INR ABG pH ABG pCO2 at Pt Temp ABG pO2 at Pt Temp ABG HCO3 BUN Creatinine Magnesium Troponin I < 0.02 Albumin Total LDL Cholesterol tele: NSR Imaging - Results Cat Scan: Report Reviewed Assessment/Plan ECG 12/26: NSR, nl axis/intervals; no path q's, no ST-T abn 56 yo former smoker with h/o htn, ? 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 AAA: -8cm AAA (infrarenal), pt clinically stable, plan for surgery today -possible RFs included untreated BP x many yrs prior to dx in 2012 (was 150/100 range at time of dx)--BP controlled well until past 6 mo or so -father with h/o sudden (presumed [place])--? was aortic rupture -check lipid panel here -diast BP here initially 95-117--suspect occult chronic HTN may be cause of his aorta aneurysm here -agree pt should have outpatient genetic testing for aortopathies including Marfan's, Loewys-Peter, and vascular Ehler's Danlos (interestingly, no atherosclerotic disease of other vessels is noted on CTA chest/abdomen here) - no w s/p surgery (noted to have additional infrarena and B iliac aneurysms as well as bifid vena cava) --> Open repair of abdominal aortic aneurysm with right iliac and left femoral bypass with graft. 12/27. HTN: -high DBP on admission, improved after iv hydral, iv BB - off home lisinopril, and additional added po metoprolol and amlodipine b/c currenty npo and hypotensive on dopamine (s/p blood loss/fluid shifts during surgery). preop CV eval: -Revised CV Risk Index = 0 -excellent exercise status (long distance runner), never any sx of active ischemic or structural heart dz -phys exam WNL cardiac and carotids -for high risk vascular surgery -pt estimated at intermediate risk for periop CV complications. no cardiac testing is indicated. -currently on dopamine/ivf as mentioned. con't to monitor. HR well controlled. cct 35 min.
[2016-12-28] MEDS: ENOXAPARIN NA (PORCINE) 40 MG/0.4 ML DISP.SYRIN SQ SCH (10:48)
--- NOTE | 2016-12-28 11:10 | PN ---
Progress Note, Physician Chief Complaint: Mr Ng says he has a small amount of pain at the site of the incision and has a sore throat. Denies cp, sob, n/v. - Current Medication List Current Medications: Active Medications Alprazolam (Xanax -) 0.25 mg PO Q8H PRN PRN Reason: ANXIETY Enoxaparin Sodium (Lovenox -) 40 mg SQ DAILY [facility] Last Admin: 12/28/16 10:48 Dose: 40 mg Fentanyl/Bupivacaine/Sodium Chlor (Bupivicaine 0.125%/Fentanyl 2mcg/Ml Pcea -) 50 ml EP ASDIR [facility] PRN Reason: Protocol Last Admin: 12/27/16 22:00 Dose: 50 ml Lactated Ringer's (Lactated Ringers Solution) 1,000 mls @ 125 mls/hr IV ASDIR [facility] Last Admin: 12/28/16 08:27 Dose: 125 mls/hr Cefazolin Sodium (Ancef 1gm Ivpb (Pre-Docked)) 50 mls @ 100 mls/hr IVPB Q8H [facility] Stop: 12/28/16 12:29 Last Admin: 12/28/16 04:56 Dose: 100 mls/hr Dopamine HCl 400,000 mcg/ (Sodium Chloride) 250 mls @ 6.06 mls/hr IV TITR [facility]; 2 MCG/KG/MIN PRN Reason: Protocol Last Titration: 12/28/16 10:00 Dose: 4 mcg/kg/min Magnesium Sulfate (Magnesium Sulfate) 2 gm IVPB ONCE ONE Stop: 12/28/16 10:23 Last Admin: 12/28/16 10:38 Dose: 2 gm Morphine Sulfate (Morphine Injection -) 4 mg IVPUSH Q3H PRN PRN Reason: PAIN Ondansetron HCl (Zofran Injection) 4 mg IVPUSH Q4H PRN PRN Reason: NAUSEA AND/OR VOMITING Stop: 12/28/16 16:28 Last Admin: 12/28/16 10:18 Dose: 4 mg Pantoprazole Sodium (Protonix 40mg Ivpb (Pre-Docked)) 40 mg IVPB DAILY [facility] Last Admin: 12/28/16 10:10 Dose: 40 mg - Objective Vital Signs: Vital Signs Temperature 37.2 C 12/28/16 11:00 Pulse Rate 69 12/28/16 11:00 Respiratory Rate 15 12/28/16 11:00 Blood Pressure 88/54 12/28/16 11:00 O2 Sat by Pulse Oximetry (%) 98 12/28/16 08:44 Constitutional: Yes: Well Nourished, No Distress, Calm Cardiovascular: Yes: Regular Rate and Rhythm. No: Gallop, Murmur, Rub Respiratory: Yes: Regular, CTA Bilaterally. No: Rales, Rhonchi, Wheezes Gastrointestinal: Yes: Normal Bowel Sounds, Soft. No: Distention, Tenderness Extremities: Yes: WNL Edema: No Labs: CBC, BMP 12/28/16 06:10 12/28/16 06:10 INR, PTT INR 1.20 (0.82-1.09) H 12/28/16 06:10 Problem List - Problems (1) AAA (abdominal aortic aneurysm) without rupture Assessment/Plan: -s/p repair -continue ICU monitoring -Dr Duncan managing Code(s): I71.4 - ABDOMINAL AORTIC ANEURYSM, WITHOUT RUPTURE (2) HTN (hypertension) Assessment/Plan: -currently with hypotension secondary to third spacing -holding lisinopril -currently on dopamine gtt for pressure support -wean dopamine as tolerated Code(s): I10 - ESSENTIAL (PRIMARY) HYPERTENSION (3) Hypomagnesemia Assessment/Plan: -replace -recheck in am Code(s): E83.42 - HYPOMAGNESEMIA
--- NOTE | 2016-12-28 11:33 | EKG ---
Test Reason : Blood Pressure : / mmHG Vent. Rate : 075 BPM Atrial Rate : 075 BPM P-R Int : 146 ms QRS Dur : 104 ms QT Int : 394 ms P-R-T Axes : 014 041 041 degrees QTc Int : 439 ms NORMAL SINUS RHYTHM INCOMPLETE RIGHT BUNDLE BRANCH BLOCK BORDERLINE ECG WHEN COMPARED WITH ECG OF 26-DEC-2016 19:02, NO SIGNIFICANT CHANGE WAS FOUND Confirmed by JUAN LUIS BHATIA MD ([id number]) on 12/28/2016 11:33:08 AM Referred By: Joy HUMPHREY Confirmed By:JUAN LUIS BHATIA MD
--- NOTE | 2016-12-28 12:04 | SURG ---
Surgery Inspection Engineer Note Inspection Engineer: Nahed Juarez PA-C Date of Service: 12/27/16 Diagnosis: Abdominal aortic and bilateral iliac artery aneurysms Procedure: Open repair of abdominal aortic aneurysm with right iliac and left femoral bypass. I was present for the entirety of the operative procedure. For further detail, please refer to operative report. Visit type - Case Type Case Type: ED Admission - Emergency Emergency Visit: Yes ED Registration Date: 12/26/16 Care time: The patient presented to the Emergency Department on the above date and was hospitalized for further evaluation of their emergent condition. - New patient This patient is new to me today: Yes Date on this admission: 12/27/16 - Critical Care Critical Care patient: No
--- NOTE | 2016-12-28 12:47 | PN ---
Teaching Attending Note Name of Resident: Haroon Watson ATTENDING PHYSICIAN STATEMENT I saw and evaluated the patient. I reviewed the resident's note and discussed the case with the resident. I agree with the resident's findings and plan as documented. SUBJECTIVE: Pt seen and examined in the ICU. s/p open AAA repair with right iliac and left femoral bypass. EBL 2L, transfused 6 units PRBC with 800mL cellsaver. Currently on dopamine gtt for hemodynamic support. OBJECTIVE: Last Vital Signs Temp Pulse Resp BP Pulse Ox 98.9 F 67 20 96/59 98 12/28/16 11:00 12/28/16 12:00 12/28/16 12:00 12/28/16 12:00 12/28/16 08:44 Intake & Output 12/25/16 12/26/16 12/27/16 12/28/16 23:59 23:59 23:59 23:59 Intake Total 5860 5400 Output Total 2980 710 Balance 2880 4690 Weight 178 lb 6.4 oz 193 lb 9.6 oz Gen: NAD at rest Heart: RRR Lung: decreased breath sounds at the bases Abd: soft, dressings clean Ext: no edema, +DP CBC, BMP 12/28/16 06:10 12/28/16 06:10 Active Medications Alprazolam (Xanax -) 0.25 mg PO Q8H PRN PRN Reason: ANXIETY Enoxaparin Sodium (Lovenox -) 40 mg SQ DAILY [facility] Last Admin: 12/28/16 10:48 Dose: 40 mg Fentanyl/Bupivacaine/Sodium Chlor (Bupivicaine 0.125%/Fentanyl 2mcg/Ml Pcea -) 50 ml EP ASDIR [facility] PRN Reason: Protocol Last Admin: 12/27/16 22:00 Dose: 50 ml Lactated Ringer's (Lactated Ringers Solution) 1,000 mls @ 125 mls/hr IV ASDIR [facility] Last Admin: 12/28/16 08:27 Dose: 125 mls/hr Dopamine HCl 400,000 mcg/ (Sodium Chloride) 250 mls @ 6.06 mls/hr IV TITR [facility]; 2 MCG/KG/MIN PRN Reason: Protocol Last Titration: 12/28/16 10:00 Dose: 4 mcg/kg/min Morphine Sulfate (Morphine Injection -) 4 mg IVPUSH Q3H PRN PRN Reason: PAIN Ondansetron HCl (Zofran Injection) 4 mg IVPUSH Q4H PRN PRN Reason: NAUSEA AND/OR VOMITING Stop: 12/28/16 16:28 Last Admin: 12/28/16 05:00 Dose: 4 mg Pantoprazole Sodium (Protonix 40mg Ivpb (Pre-Docked)) 40 mg IVPB DAILY [facility] Last Admin: 12/28/16 10:10 Dose: 40 mg ASSESSMENT AND PLAN: AAA s/p open repair with right iliac and left femoral bypass Hemorrrhagic/Hypovolemic Shock - IVF - taper dopamine gtt to maintain MAP >65 - monitor H/H - transfuse as needed - pain control - incentive spirometry - await return of bowel function - DVT prophylaxis critical care time spent in reviewing chart, evaluating patient and formulating plan 35 min
--- NOTE | 2016-12-28 13:50 | PN ---
Progress Note (short form) - Note Progress Note: Anesthesia/Pain Pt seen and examined S:c/o bed not rocking and uncomfortable with staying in one position O: Vital Signs Temperature 98.9 F 12/28/16 11:00 Pulse Rate 67 12/28/16 12:00 Respiratory Rate 20 12/28/16 12:00 Blood Pressure 96/59 12/28/16 12:00 O2 Sat by Pulse Oximetry (%) 98 12/28/16 08:44 CBC, BMP 12/28/16 06:10 12/28/16 06:10 A/P: Current Active Problems AAA (abdominal aortic aneurysm) without rupture (Acute) s/p AAA repair on epidural infusion Asked nurse to check on the bed Continue with epidural infusion, titrate as needed Raymundo Funez MD
--- NOTE | 2016-12-28 14:50 | PN ---
Progress Note, Physician Chief Complaint: s/p AAA repair History of Present Illness: patient is doing well on POD 1 (EBL 2 liters). Pain controlled. No SOB, CP, edema. He had episodes of hypotension overnight requiring a total of 4 liters of fluid and pressure support. - Current Medication List Current Medications: Active Medications Alprazolam (Xanax -) 0.25 mg PO Q8H PRN PRN Reason: ANXIETY Enoxaparin Sodium (Lovenox -) 40 mg SQ DAILY [facility] Last Admin: 12/28/16 10:48 Dose: 40 mg Fentanyl/Bupivacaine/Sodium Chlor (Bupivicaine 0.125%/Fentanyl 2mcg/Ml Pcea -) 50 ml EP ASDIR DARIUS PRN Reason: Protocol Last Admin: 12/27/16 22:00 Dose: 50 ml Lactated Ringer's (Lactated Ringers Solution) 1,000 mls @ 125 mls/hr IV ASDIR DARIUS Last Admin: 12/28/16 08:27 Dose: 125 mls/hr Dopamine HCl 400,000 mcg/ (Sodium Chloride) 250 mls @ 6.06 mls/hr IV TITR DARIUS; 2 MCG/KG/MIN PRN Reason: Protocol Last Titration: 12/28/16 10:00 Dose: 4 mcg/kg/min Magnesium Chloride (Slow-Mag -) 128 mg PO DAILY [facility] Morphine Sulfate (Morphine Injection -) 4 mg IVPUSH Q3H PRN PRN Reason: PAIN Ondansetron HCl (Zofran Injection) 4 mg IVPUSH Q4H PRN PRN Reason: NAUSEA AND/OR VOMITING Stop: 12/28/16 16:28 Last Admin: 12/28/16 05:00 Dose: 4 mg Pantoprazole Sodium (Protonix 40mg Ivpb (Pre-Docked)) 40 mg IVPB DAILY [facility] Last Admin: 12/28/16 10:10 Dose: 40 mg - Objective Vital Signs: Vital Signs Temperature 98.9 F 12/28/16 11:00 Pulse Rate 67 12/28/16 12:00 Respiratory Rate 20 12/28/16 12:00 Blood Pressure 96/59 12/28/16 12:00 O2 Sat by Pulse Oximetry (%) 98 12/28/16 08:44 Constitutional: Yes: Well Nourished, No Distress, Calm HENT: Yes: Atraumatic, Normocephalic Neck: Yes: Supple, Trachea Midline Cardiovascular: Yes: Regular Rate and Rhythm, S1, S2. No: JVD, Gallop, Murmur, Rub Respiratory: Yes: Regular, CTA Bilaterally Gastrointestinal: Yes: Normal Bowel Sounds, Soft Peripheral Pulses: Left Radial: 2+, Right Radial: 2+, Left Doralis Pedis: 2+, Right Dorsalis Pedis: 2+ Neurological: Yes: Alert, Oriented, Cran Nerves II-XII Intact. No: Numbness, Paresthesia, Tingling Psychiatric: Yes: Alert, Oriented Labs: CBC, BMP 12/28/16 06:10 12/28/16 06:10 INR, PTT INR 1.20 (0.82-1.09) H 12/28/16 06:10 Problem List - Problems (1) AAA (abdominal aortic aneurysm) without rupture Code(s): I71.4 - ABDOMINAL AORTIC ANEURYSM, WITHOUT RUPTURE Assessment/Plan 56 yo M w/ recent DX 8cm AAA s/p open repair, POD 1. Admitted to ICU for further management Neuro: A&ox3, no deficits Cardio: -S/P AAA repair w/ episodes of hypotension overnight -on dopamine GTT; will tirate as needed -holding all rate control and BP medications -pain controlled on epidural GEOGRAPHICAL HISTORIAN abdominal: -surgical wound down midline, no sign of infection Prophylaxsis: -lovenox 40 SQ -Protonix 40 IV FEN: -LR @ 125 -magnesium 1.6, will replete -NPO Dispo: -continue to monitor in ICU -critical care time 40 mins
--- NOTE | 2016-12-28 15:13 | OP ---
DATE OF OPERATION: 12/27/2016 SURGEON: Ruddy Duncan MD EDUCATION INSTRUCTOR: KALEN Jose PROCEDURE: Open repair of infrarenal abdominal aortic and bilateral iliac artery aneurysms. PREOPERATIVE DIAGNOSES: Large, symptomatic abdominal aortic and bilateral iliac aneurysm. POSTOPERATIVE DIAGNOSES: Large, symptomatic abdominal aortic and bilateral iliac aneurysm. ANESTHESIA: General and epidural. ANESTHESIOLOGIST: Dr. Santiago. OPERATIVE FINDINGS: There was an 8-cm infrarenal abdominal aortic aneurysm with a 4-cm left common iliac artery aneurysm and a 2.6-cm right common iliac artery aneurysm. 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 DESCRIPTION OF OPERATIVE PROCEDURE: Following routine patient identification, general anesthesia and epidural catheter were placed. A line, NG tube, and Riley catheter were placed. The abdomen and both groins were prepped with ChloraPrep. Peritoneal cavity was then entered through a long midline incision using cautery for hemostasis. Abdominal exploration was carried out with the above-noted findings. The bladder was adherent to the anterior abdominal wall at the lower end of the incision, and partial injury of the bladder wall without penetration into the bladder was identified. The bladder wall was repaired with a running suture of 2-0 Prolene. The Omni retractor was used. The small bowel was eviscerated to the right and held in place with the retractor. Dissection over the proximal end of the aneurysm to divide the retroperitoneal tissues and mobilize the duodenum off of the aneurysm was performed with a LigaSure. The inferior mesenteric vein was ligated with 2-0 silk ties and divided. The duplicated cava crossing over the proximal aorta was identified. A branch to the left kidney was ligated with 2-0 silk ties and divided. The left cava was retracted to the right to expose the neck of the aneurysm. Both renal arteries were identified but left undisturbed in the retroperitoneum. Dissection of the neck of the aneurysm was then performed after mobilizing the additional portion of the left-sided cava off of the aneurysm wall. The infrarenal aorta was cleared for application of a cross clamp. Lumbar branches in this section were ligated with silk ties and clips and divided. Distal dissection was then performed to open the retroperitoneum down into the pelvis. The left iliac aneurysm was exposed down distally, but the terminal branches of the external and internal iliac were not able to be dissected due to the size of the aneurysm and the depth in the pelvis. On the right side, the iliac artery was carefully dissected, and both external and internal iliacs were secured with vessel loops. The patient was then systemically heparinized. The infrarenal clamp was applied, and then, the right internal and external iliac arteries were individually occluded with clamps. The left distal common iliac artery aneurysm was occluded with a clamp. The aneurysm was then opened. There was no clot within the aneurysm. Back bleeding from lumbar branches was controlled with figure-of-8 sutures of 3-0 Prolene. A long neck of the aneurysm extended down to the portion distal to the ridge of the crossing left cava. There was significant bleeding coming from lumbar branches within this section. The opening to the aneurysm sac was over sewn with running sutures of 3-0 Prolene to obtain hemostasis. Attention was then turned to the infrarenal area. A clamp was placed distally on the aorta, and it was divided. The distal stump was over sewn with running suture of 3-0 Prolene. The proximal neck was fully mobilized. An 18 mm x 9 mm bifurcated Hemashield graft was then selected for use. The main body was trimmed, and a cuff made and placed over the graft. An end-to-end anastomosis to the infrarenal aorta was then performed with running suture of 3-0 Prolene. Following completion of the suture line, the cuff was pulled up over the anastomosis, and the proximal clamp was opened to check for hemostasis which was adequate. The clamp was moved down onto the main body of the graft. Attention was then turned to the left iliac aneurysm. Attempt to elevate the distal vessels into the field was unsuccessful. Decision was made to over sew the distal aneurysm and anastomose it to the left femoral artery. The distal aneurysm was then closed with running suture of 3-0 Prolene. The aneurysm on the right side was opened down to the bifurcation of the iliacs. The graft limb was extended down, and a long bevel made. The end of the graft was anastomosed to the confluence of the internal and external iliac with a running suture of 3-0 Prolene. Prior to completion of the suture line, the arteries were allowed to back bleed and were flushed with heparin solution. The graft limb was also allowed to flush after occluding the contralateral limb. Suture line was completed, and clamps were removed. There was good flow through the anastomosis with strong Doppler signals in the internal and external iliac. Surgicel was applied to control any bleeding from the suture line. A left femoral incision was then made midway between the iliac crest and the pubic tubercle and carried down through subcutaneous tissues. The left common femoral artery was identified at the inguinal ligament and was mobilized and secured with vessel loops. Side branches were ligated and divided. A retroperitoneal tunnel was then created with a long clamp, and the left limb of the graft passed through the tunnel with care not to twist it. The femoral artery was occluded with clamps and opened with a 15-mm arteriotomy. The end of the graft limb was beveled and anastomosed to the side of the artery with running sutures of 5-0 Prolene. Prior to completion of the suture line, the femoral artery was allowed to back bleed and flush proximally, and the graft was flushed. The lumen was filled with heparin solution, and the suture line was completed. Flow was then restored to the left leg with removal of all clamps. Bleeding from the suture line was controlled with Surgicel. Attention was returned to the abdomen. Additional sutures of Prolene were placed on the lumbars which were back bleeding. No additional bleeding was identified. The retroperitoneum was irrigated, and then, the aneurysm sac closed over partially to partially cover the graft using a running suture of 2-0 Vicryl. The retroperitoneal tissues were then closed completely to exclude the graft from the peritoneal cavity. Vicryl was used for this closure as well. The small bowel was returned to the peritoneal cavity. It was carefully inspected as was the large bowel, which all appeared viable. The midline fascia was then closed with a running doubled suture of No. 1 PDS. The subcutaneous tissues were irrigated, and skin was closed with kathie. The left groin was closed with interrupted sutures of 3-0 Vicryl in the subcutaneous tissues and kathie on the skin. Sterile dressings were applied. The feet were inspected, and pulses were weak but improved with correction of the moderate hypotension. The patient was then extubated and transported to the recovery room. Radha [id number]
[2016-12-28] MEDS: FENTANYL/BUPIVACAINE/NS/PF - PCEA - 50 ML DISP.SYRIN EP SCH ×3 (16:00→22:00)
[2016-12-28 16:16] LABS: MCH 31.4 pg (25.7-33.7); MCHC 33.7 g/dl (32.0-35.9); MEAN CELL VOLUME 93.3 fl (80-96); MEAN PLT VOLUME 7.9 fl (7.5-11.1); PLATELET COUNT 132 K/MM3 (134-434); RDW 13.9 % (11.9-15.9); WHITE BLOOD COUNT 10.3 K/mm3 (4.0-10.0)
--- NOTE | 2016-12-28 16:23 | PN ---
Progress Note (short form) - Note Progress Note: Pt. c/o of increased post-op pain. Pt. was given morphine by nurse which took the edge off. Epidural WATER PROJECT ENGINEER increased from 5 to 8 cc/hr. Will follow.
[2016-12-28] MEDS ORDERED: FENTANYL/BUPIVACAINE/NS/PF - PCEA - 50 ML DISP.SYRIN EP SCH (16:30)
[2016-12-28] MEDS ORDERED: MAGNESIUM CL 64 MG TABLET.SA PO SCH (22:00)
[2016-12-29] MEDS ORDERED: METOPROLOL TARTRATE 5 MG/5 ML VIAL IVPUSH ONE (04:40)
[2016-12-29] MEDS ORDERED: METOPROLOL TARTRATE 5 MG/5 ML VIAL ONE (04:41)
[2016-12-29 07:28] LABS: BASOPHIL 0.1 % (0-2.0); MCH 31.3 pg (25.7-33.7); MCHC 33.3 g/dl (32.0-35.9); NEUTROPHILS 87.5 % (42.8-82.8); PLATELET COUNT 125 K/MM3 (134-434); RDW 13.6 % (11.9-15.9); WHITE BLOOD COUNT 12.5 K/mm3 (4.0-10.0)
[2016-12-29 07:29] LABS: ANION GAP 6 (8-16); CALCIUM 8.2 mg/dL (8.5-10.1); CO2 26 mmol/L (21-32); CREATININE 1.1 mg/dL (0.7-1.3); GLUCOSE,RANDOM 108 mg/dL (74-106); MAGNESIUM 2.3 mg/dL (1.8-2.4); PHOSPHOROUS 2.9 mg/dL (2.5-4.9)
[2016-12-29] MEDS: DOPAMINE HCL 400,000 MCG in SODIUM CHLORIDE 240 ML IV SCH (07:31)
[2016-12-29] MEDS: NICARDIPINE 25 MG in DEXTROSE 5%-WATER - 240 ML IVPB SCH ×3 (08:38→14:20)
[2016-12-29] MEDS: PANTOPRAZOLE SODIUM 40 MG/100 ML PRE-DOCKED IVPB SCH (09:01)
[2016-12-29] MEDS: ENOXAPARIN NA (PORCINE) 40 MG/0.4 ML DISP.SYRIN SQ SCH (09:02)
[2016-12-29] MEDS: FENTANYL/BUPIVACAINE/NS/PF - PCEA - 50 ML DISP.SYRIN EP SCH (09:19)
[2016-12-29] MEDS: LACTATED RINGERS SOLUTION 1,000 ML IV SCH ×2 (09:27→11:22)
--- NOTE | 2016-12-29 10:07 | PN ---
Progress Note (short form) - Note Progress Note: POD 2 Complains of increasing pain in abdomen despite increased epidural fentanyl drip. Afebrile, VSS Abd full, not distended, no guarding. 2 small BM overnight. Wound C/D/I Ext 1+ edema, feet warm. Pulses palpable in both DP Hgb 11 BUN 21/ Cr1.1 Imp: Stable course. Pain a concern but probably not unusual at this point after laparotomy. Plan: D/C NG Bed rest today. Would consider D/C epidural and start TECHNICAL ADVISOR Problem List - Problems (1) AAA (abdominal aortic aneurysm) without rupture Code(s): I71.4 - ABDOMINAL AORTIC ANEURYSM, WITHOUT RUPTURE
--- NOTE | 2016-12-29 10:32 | PN ---
Progress Note, Physician Chief Complaint: Pain no longer controlled with epidural since midnight states the patient. Boluses and rate increase done without improvement. No complications. - Current Medication List Current Medications: Active Medications Alprazolam (Xanax -) 0.25 mg PO Q8H PRN PRN Reason: ANXIETY Enoxaparin Sodium (Lovenox -) 40 mg SQ DAILY [facility] Last Admin: 12/29/16 09:02 Dose: 40 mg Fentanyl/Bupivacaine/Sodium Chlor (Bupivicaine 0.125%/Fentanyl 2mcg/Ml Pcea -) 50 ml EP ASDIR DARIUS PRN Reason: Protocol Last Admin: 12/29/16 09:19 Dose: 50 ml Dopamine HCl 400,000 mcg/ (Sodium Chloride) 250 mls @ 6.06 mls/hr IV TITR DARIUS; 2 MCG/KG/MIN PRN Reason: Protocol Last Admin: 12/29/16 07:31 Dose: Not Given Nicardipine HCl 25 mg/ (Dextrose) 250 mls @ 25 mls/hr IVPB TITR D[facility]IUS; 2.5 MG/HR PRN Reason: Protocol Last Admin: 12/29/16 08:38 Dose: 50 mls/hr Lactated Ringer's (Lactated Ringers Solution) 1,000 mls @ 75 mls/hr IV ASDIR D[facility]IUS Morphine Sulfate (Morphine Injection -) 4 mg IVPUSH Q3H PRN PRN Reason: PAIN Last Admin: 12/28/16 15:47 Dose: 4 mg Pantoprazole Sodium (Protonix 40mg Ivpb (Pre-Docked)) 40 mg IVPB DAILY [facility] Last Admin: 12/29/16 09:01 Dose: 40 mg - Objective Vital Signs: Vital Signs Temperature 98.2 F 12/29/16 00:00 Pulse Rate 64 12/29/16 09:30 Respiratory Rate 19 12/29/16 09:30 Blood Pressure 146/89 12/29/16 09:30 O2 Sat by Pulse Oximetry (%) 98 12/29/16 09:19 Constitutional: Yes: Well Nourished, No Distress, Calm Musculoskeletal: Yes: WNL Neurological: Yes: WNL, Alert, Oriented Labs: CBC, BMP 12/29/16 06:00 12/29/16 05:00 INR, PTT INR 1.20 (0.82-1.09) H 12/28/16 06:10 Assessment/Plan POD#2 s/p open AAA repair under [place]. Pain not controlled with epidural currently. D/C epidural tonight at 9pm since Lovenox given at 9am this morning. Start Dilaudid SPECIAL EDUCATION AIDE for pain control.
--- NOTE | 2016-12-29 11:05 | PN ---
Progress Note, Physician Chief Complaint: s/p AAA repair History of Present Illness: Pt is POD#2 from AAA repair. Patient states he had 2 nonbloody BM overnight. Pt still complains of abdominal pain, despite increase in epidural drip. Vital signs remain stable with systolic BP in 140s. Wound is clean and intact. Pt denied any fever, nausea, vomiting, chest pain, SOB, constipation or dysuria. - Current Medication List Current Medications: Active Medications Alprazolam (Xanax -) 0.25 mg PO Q8H PRN PRN Reason: ANXIETY Enoxaparin Sodium (Lovenox -) 40 mg SQ DAILY [facility] Last Admin: 12/29/16 09:02 Dose: 40 mg Fentanyl/Bupivacaine/Sodium Chlor (Bupivicaine 0.125%/Fentanyl 2mcg/Ml Pcea -) 50 ml EP ASDIR DARIUS PRN Reason: Protocol Last Admin: 12/29/16 09:19 Dose: 50 ml Hydromorphone HCl (Dilaudid Dye Can Operator -) 0 mg PAYROLL AND BENEFITS MANAGER PAYROLL AND BENEFITS MANAGER DARIUS PRN Reason: Protocol Stop: 01/05/17 10:32 Dopamine HCl 400,000 mcg/ (Sodium Chloride) 250 mls @ 6.06 mls/hr IV TITR DARIUS; 2 MCG/KG/MIN PRN Reason: Protocol Last Admin: 12/29/16 07:31 Dose: Not Given Nicardipine HCl 25 mg/ (Dextrose) 250 mls @ 25 mls/hr IVPB TITR DARIUS; 2.5 MG/HR PRN Reason: Protocol Last Admin: 12/29/16 08:38 Dose: 50 mls/hr Lactated Ringer's (Lactated Ringers Solution) 1,000 mls @ 75 mls/hr IV ASDIR D[facility]IUS Morphine Sulfate (Morphine Injection -) 4 mg IVPUSH Q3H PRN PRN Reason: PAIN Last Admin: 12/28/16 15:47 Dose: 4 mg Pantoprazole Sodium (Protonix 40mg Ivpb (Pre-Docked)) 40 mg IVPB DAILY [facility] Last Admin: 12/29/16 09:01 Dose: 40 mg - Objective Vital Signs: Vital Signs Temperature 98.4 F 12/29/16 10:00 Pulse Rate 66 12/29/16 10:00 Respiratory Rate 19 12/29/16 10:00 Blood Pressure 148/89 12/29/16 10:00 O2 Sat by Pulse Oximetry (%) 98 12/29/16 09:19 Constitutional: Yes: Well Nourished, No Distress, Calm Eyes: Yes: Conjunctiva Clear, EOM Intact HENT: Yes: Atraumatic, Normocephalic Neck: Yes: Supple, Trachea Midline Cardiovascular: Yes: Regular Rate and Rhythm Respiratory: Yes: Regular, CTA Bilaterally Gastrointestinal: Yes: Normal Bowel Sounds, Soft, Other (Surgical scar down midline without erythema or confluence. no pus, no swelling). No: Tenderness Peripheral Pulses: Left Radial: 2+, Right Radial: 2+, Left Doralis Pedis: 2+, Right Dorsalis Pedis: 2+ Wound/Incision: Yes: Clean/Dry, Well Approximated Neurological: Yes: Alert, Oriented, Cran Nerves II-XII Intact. No: Loss of Sensation, Numbness Psychiatric: Yes: Alert, Oriented Labs: CBC, BMP 12/29/16 06:00 12/29/16 05:00 INR, PTT INR 1.20 (0.82-1.09) H 12/28/16 06:10 Problem List - Problems (1) AAA (abdominal aortic aneurysm) without rupture Code(s): I71.4 - ABDOMINAL AORTIC ANEURYSM, WITHOUT RUPTURE Assessment/Plan 56 yo M s/p AAA open repair, POD 2. Cardio: -S/P AAA repair with no episodes of hypotension overnight -on dopamine GTT; stopped -on Nicardipine drip for hypertension; titrate as needed if systolic BP>160 -pain not controlled by epidural fentanyl drip at 12ml/hr -anesthesia plans to take out epidural and switch to dilaudid PAYROLL AND BENEFITS MANAGER -patient received Lovenox today, so will disconnect epidural and start PAYROLL AND BENEFITS MANAGER. -HOLD LOVENOX in AM for removal of epidural catheter -give 10 mg dose Lasix IV as per vascular surgery recommendations Neuro: -A&ox3, no deficits Prophylaxis: -lovenox 40 SQ for DVT prophylaxsis -Protonix 40mg IV daily FEN: -LR @ 75 -monitor lytes -NPO Dispo: -continue to monitor in ICU -critical care time 40 mins
[2016-12-29] MEDS ORDERED: niCARdipine HCL 25 MG/10 ML AMPUL IVPB ONE ×2 (11:09→20:55)
--- NOTE | 2016-12-29 11:09 | PN ---
Teaching Attending Note Name of Resident: Haroon Watson ATTENDING PHYSICIAN STATEMENT I saw and evaluated the patient. I reviewed the resident's note and discussed the case with the resident. I agree with the resident's findings and plan as documented. SUBJECTIVE: Pt seen and examined in the ICU. Dopamine gtt off, started on cardene gtt overnight for hypertension. Pain not controlled on epidural. Had 2 loose bowel movements overnight. OBJECTIVE: Last Vital Signs Temp Pulse Resp BP Pulse Ox 98.4 F 66 19 148/89 98 12/29/16 10:00 12/29/16 10:00 12/29/16 10:00 12/29/16 10:00 12/29/16 09:19 Intake & Output 12/26/16 12/27/16 12/28/16 12/29/16 23:59 23:59 23:59 23:59 Intake Total 5860 7511.8 Output Total 2980 1510 Balance 2880 6001.8 Weight 178 lb 6.4 oz 193 lb 9.6 oz Gen: mildly tachypneic at rest Heart: RRR Lung: scattered rhonchi Abd: soft, incision clean Ext: no edema, +DP CBC, BMP 12/29/16 06:00 12/29/16 05:00 Active Medications Alprazolam (Xanax -) 0.25 mg PO Q8H PRN PRN Reason: ANXIETY Enoxaparin Sodium (Lovenox -) 40 mg SQ DAILY [facility] Last Admin: 12/29/16 09:02 Dose: 40 mg Hydromorphone HCl (Dilaudid Chemical Laboratory Scientist -) 0 mg ADMINISTRATIVE VOLUNTEER ADMINISTRATIVE VOLUNTEER DARIUS PRN Reason: Protocol Stop: 01/05/17 10:32 Dopamine HCl 400,000 mcg/ (Sodium Chloride) 250 mls @ 6.06 mls/hr IV TITR [facility]; 2 MCG/KG/MIN PRN Reason: Protocol Last Admin: 12/29/16 07:31 Dose: Not Given Nicardipine HCl 25 mg/ (Dextrose) 250 mls @ 25 mls/hr IVPB TITR [facility]; 2.5 MG/HR PRN Reason: Protocol Last Admin: 12/29/16 08:38 Dose: 50 mls/hr Lactated Ringer's (Lactated Ringers Solution) 1,000 mls @ 75 mls/hr IV ASDIR D[facility] Morphine Sulfate (Morphine Injection -) 4 mg IVPUSH Q3H PRN PRN Reason: PAIN Last Admin: 12/28/16 15:47 Dose: 4 mg Pantoprazole Sodium (Protonix 40mg Ivpb (Pre-Docked)) 40 mg IVPB DAILY [facility] Last Admin: 12/29/16 09:01 Dose: 40 mg ASSESSMENT AND PLAN: AAA s/p open repair with right iliac and left femoral bypass Hemorrrhagic/Hypovolemic Shock resolved Hypertension - IVF - titrate cardene gtt to keep SBP <160 - monitor H/H - transfuse as needed - pain control, may need to change epidural to ADMINISTRATIVE VOLUNTEER - incentive spirometry - await return of bowel function - DVT prophylaxis - continue ICU monitoring critical care time spent in reviewing chart, evaluating patient and formulating plan 35 min
--- NOTE | 2016-12-29 11:33 | PN ---
Progress Note (short form) - Note Progress Note: Chief Complaint: AAA/pre-op clearance S: bp improved, off dopa, now with elevated bp on nicardipine gtt. abd pain at surgical site, no cp/sob/palps/dizzy ex cigs Current Medications Generic Name Dose Route Start Last Admin Trade Name Freq PRN Reason Stop Dose Admin Alprazolam 0.25 mg 12/27/16 20:32 Xanax - PO Q8H PRN ANXIETY Enoxaparin Sodium 40 mg 12/28/16 10:00 12/29/16 09:02 Lovenox - SQ 40 mg DAILY DARIUS Administration Hydromorphone HCl 0 mg 12/29/16 10:45 Dilaudid Insurance Claims Assistant - EARLY CHILDHOOD AIDE CLASSROOM 01/05/17 10:32 EARLY CHILDHOOD AIDE CLASSROOM DARIUS Protocol Dopamine HCl 400,000 mcg/ 250 mls @ 6.06 mls/hr 12/28/16 04:30 12/29/16 07:31 Sodium Chloride IV Not Given TITR DARIUS Protocol 2 MCG/KG/MIN Nicardipine HCl 25 mg/ 250 mls @ 25 mls/hr 12/29/16 05:20 12/29/16 11:21 Dextrose IVPB 50 mls/hr TITR DARIUS Administration Protocol 2.5 MG/HR Lactated Ringer's 1,000 mls @ 75 mls/hr 12/29/16 10:10 12/29/16 11:22 Lactated Ringers Solution IV 75 mls/hr ASDIR DARIUS Administration Morphine Sulfate 4 mg 12/27/16 20:32 12/28/16 15:47 Morphine Injection - IVPUSH 4 mg Q3H PRN Administration PAIN Pantoprazole Sodium 40 mg 12/28/16 10:00 12/29/16 09:01 Protonix 40mg Ivpb (Pre-Docked) IVPB 40 mg DAILY DARIUS Administration Vital Signs Temp 98.4 F 12/29/16 10:00 Pulse 88 12/29/16 11:21 Resp 19 12/29/16 10:00 BP 148/89 12/29/16 11:21 Pulse Ox 98 12/29/16 09:19 Intake & Output 12/28/16 12/28/16 12/29/16 11:59 23:59 11:59 Intake Total 5400 2111.8 Output Total 710 800 Balance 4690 1311.8 Weight 193 lb 9.6 oz Intake: IV 4650 2111.8 Lactated Ringers Solution 600 1875 1,000 ml @ 125 mls/hr IV ASDIR DARIUS Rx#: [id number] Intropin - 400,000 Mcg In 124.8 Normal Saline - 240 ml @ 2 MCG/KG/MIN 6.06 mls/hr IV TITR DARIUS Rx#: [id number] bupivacaine/fentanyl 50 112 epidural meteorological engineer nss 4000 IVPB 350 Albumin 400 Output: Gastric Drainage 10 Urine 700 800 Riley 700 800 Other: Voiding Method Indwelling Catheter Indwelling Catheter Bowel Movement No No Weight Measurement Method Built in [facility] Constitutional: Yes: Well Nourished, No Distress Eyes: No: Sclera Icterus HENT: No: Nasal Congestion Neck: No: Decreased ROM Respiratory: Yes: CTA Bilaterally. No: Accessory Muscle Use, Rales, Wheezes Gastrointestinal: Yes: Normal Bowel Sounds, No: Distention, Hepatomegaly, mild Tenderness at wound Cardiovascular: Yes: Regular Rate and Rhythm JVD: No Heart Sounds: Yes: S1, S2. No: Gallop Murmur: No: Systolic Murmur, Diastolic Murmur Extremities: No: Cold, Cyanosis Edema: No Peripheral Pulses: 2+ Left Doralis Pedis, 2+ Right Dorsalis Pedis Integumentary: No: Jaundice diaphoresis Neurological: Yes: Alert, Oriented (x3) Psychiatric: No: Agitated - Other Data Labs, Other Data: Laboratory Last Values WBC 12.5 K/mm3 (4.0-10.0) H 12/29/16 06:00 RBC 3.56 M/mm3 (4.00-5.60) L 12/29/16 06:00 Hgb 11.2 GM/dL (11.7-16.9) L 12/29/16 06:00 Hct 33.5 % (35.4-49) L 12/29/16 06:00 MCV 94.0 fl (80-96) 12/29/16 06:00 MCH 31.3 pg (25.7-33.7) 12/29/16 06:00 MCHC 33.3 g/dl (32.0-35.9) 12/29/16 06:00 RDW 13.6 % (11.9-15.9) 12/29/16 06:00 Plt Count 125 K/MM3 (134-434) L 12/29/16 06:00 MPV 8.0 fl (7.5-11.1) 12/29/16 06:00 Neutrophils % 87.5 % (42.8-82.8) H 12/29/16 06:00 Lymphocytes % 2.7 % (8-40) L D 12/29/16 06:00 Monocytes % 9.7 % (3.8-10.2) 12/29/16 06:00 Eosinophils % 0.0 % (0-4.5) D 12/29/16 06:00 Basophils % 0.1 % (0-2.0) 12/29/16 06:00 INR 1.20 (0.82-1.09) H 12/28/16 06:10 PTT (Actin FS) 24.7 SECONDS (26.9-34.4) L 12/28/16 06:10 Puncture Site Left radial 12/28/16 04:28 ABG pH 7.37 (7.35-7.45) 12/28/16 04:28 ABG pCO2 at Pt Temp 39.6 mmHg (35-45) 12/28/16 04:28 ABG pO2 at Pt Temp 113.0 mmHg (80-100) H 12/28/16 04:28 ABG HCO3 22.1 meq/L (22-26) 12/28/16 04:28 ABG O2 Sat (Measured) 98.6 % (90-98.9) 12/28/16 04:28 ABG O2 Content 17.9 % vol (15-22) 12/28/16 04:28 ABG Base Excess -2.5 meq/l (-2-2) L 12/28/16 04:28 Jass Test Positive 12/28/16 04:28 Oxygen Flow Rate Nasal cannula 12/28/16 04:28 PEEP 0.0 cmH2O 12/28/16 04:28 Sodium 141 mmol/L (136-145) 12/29/16 05:00 Potassium 4.0 mmol/L (3.5-5.1) 12/29/16 05:00 Chloride 109 mmol/L (98-107) H 12/29/16 05:00 Carbon Dioxide 26 mmol/L (21-32) 12/29/16 05:00 Anion Gap 6 (8-16) L 12/29/16 05:00 BUN 21 mg/dL (7-18) H D 12/29/16 05:00 Creatinine 1.1 mg/dL (0.7-1.3) 12/29/16 05:00 Creat Clearance w eGFR > 60 (>60) 12/28/16 06:10 Random Glucose 108 mg/dL (74-106) H D 12/29/16 05:00 Lactic Acid 0.7 mmol/L (0.4-2.0) 12/28/16 17:25 Calcium 8.2 mg/dL (8.5-10.1) L 12/29/16 05:00 Phosphorus 2.9 mg/dL (2.5-4.9) D 12/29/16 05:00 Magnesium 2.3 mg/dL (1.8-2.4) D 12/29/16 05:00 Total Bilirubin 0.6 mg/dL (0.2-1.0) D 12/28/16 06:10 Direct Bilirubin 0.2 mg/dL (0.0-0.2) 12/28/16 06:10 AST 16 U/L (15-37) D 12/28/16 06:10 ALT 16 U/L (12-78) 12/28/16 06:10 Alkaline Phosphatase 35 U/L (45-117) L 12/28/16 06:10 Creatine Kinase 372 IU/L (39-308) H 12/28/16 06:10 Creatine Kinase Index 0.9 % (0.0-5.0) 12/28/16 06:10 CK-MB (CK-2) 3.606 ng/mL (0.5-3.6) H 12/28/16 06:10 Troponin I < 0.02 ng/ml (0.00-0.05) 12/28/16 06:10 Total Protein 4.7 g/dl (6.4-8.2) L 12/28/16 06:10 Albumin 2.4 g/dl (3.4-5.0) L 12/28/16 06:10 Triglycerides 73 mg/dL (35-160) 12/27/16 08:45 Cholesterol 182 mg/dL (50-200) 12/27/16 08:45 Total LDL Cholesterol 97 mg/dL (5-100) 12/27/16 08:45 HDL Cholesterol 68 mg/dL (40-60) H 12/27/16 08:45 Blood Type A NEGATIVE 12/27/16 09:40 Antibody Screen Negative 12/26/16 17:35 Crossmatch IS Only See Detail 12/27/16 09:40 Spec Expiration Date Cancelled 12/27/16 09:40 tele: SR Imaging - Results Cat Scan: Report Reviewed ECG 12/26: NSR, nl axis/intervals; no path q's, no ST-T abn a/p: 56 yo former smoker with h/o htn, ? 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 AAA: -8cm AAA (infrarenal) -possible RFs included untreated BP x many yrs prior to dx in 2012 (was 150/100 range at time of dx)--BP controlled well until past 6 mo or so -father with h/o sudden (presumed GA)--? was aortic rupture -diast BP here initially 95-117--suspect occult chronic HTN may be cause of his aorta aneurysm here -agree pt should have outpatient genetic testing for aortopathies including Marfan's, Loewys-Peter, and vascular Ehler's Danlos (interestingly, no atherosclerotic disease of other vessels is noted on CTA chest/abdomen here) -now s/p surgery (noted to have additional infrarenal and iliac aneurysms as well as bifid vena cava) --> Open repair of abdominal aortic aneurysm with right iliac and left femoral bypass with graft on 12/27. vascular following. HTN: -high DBP on admission, improved after iv hydral, iv BB -then with post op hypotension on dopamine (s/p blood loss/fluid shifts during surgery). -now bp improved/elevated off dopa so nicardipine gtt added for bp control until able to take po meds.
--- NOTE | 2016-12-29 11:51 | PN ---
Progress Note, Physician Chief Complaint: Mr Ng says he is having pain and it is not controlled in his abdomen and at site of insertion. No cp, sob, n/v. - Current Medication List Current Medications: Active Medications Alprazolam (Xanax -) 0.25 mg PO Q8H PRN PRN Reason: ANXIETY Enoxaparin Sodium (Lovenox -) 40 mg SQ DAILY DARIUS Last Admin: 12/29/16 09:02 Dose: 40 mg Hydromorphone HCl (Dilaudid Gas Pumper -) 0 mg PILL MAKER PILL MAKER DARIUS PRN Reason: Protocol Stop: 01/05/17 10:32 Dopamine HCl 400,000 mcg/ (Sodium Chloride) 250 mls @ 6.06 mls/hr IV TITR DARIUS; 2 MCG/KG/MIN PRN Reason: Protocol Last Admin: 12/29/16 07:31 Dose: Not Given Nicardipine HCl 25 mg/ (Dextrose) 250 mls @ 25 mls/hr IVPB TITR DARIUS; 2.5 MG/HR PRN Reason: Protocol Last Admin: 12/29/16 11:21 Dose: 50 mls/hr Lactated Ringer's (Lactated Ringers Solution) 1,000 mls @ 75 mls/hr IV ASDIR DARIUS Last Admin: 12/29/16 11:22 Dose: 75 mls/hr Morphine Sulfate (Morphine Injection -) 4 mg IVPUSH Q3H PRN PRN Reason: PAIN Last Admin: 12/28/16 15:47 Dose: 4 mg Pantoprazole Sodium (Protonix 40mg Ivpb (Pre-Docked)) 40 mg IVPB DAILY DARIUS Last Admin: 12/29/16 09:01 Dose: 40 mg - Objective Vital Signs: Vital Signs Temperature 36.9 C 12/29/16 10:00 Pulse Rate 88 12/29/16 11:21 Respiratory Rate 19 12/29/16 10:00 Blood Pressure 148/89 12/29/16 11:21 O2 Sat by Pulse Oximetry (%) 98 12/29/16 09:19 Constitutional: Yes: Well Nourished, No Distress, Calm Cardiovascular: Yes: Regular Rate and Rhythm. No: Gallop, Murmur, Rub Respiratory: Yes: Regular, CTA Bilaterally. No: Rales, Rhonchi, Wheezes Gastrointestinal: Yes: Soft, Hypoactive Bowel Sounds, Tenderness. No: Distention Extremities: Yes: WNL Edema: No Labs: CBC, BMP 12/29/16 06:00 12/29/16 05:00 INR, PTT INR 1.20 (0.82-1.09) H 12/28/16 06:10 Problem List - Problems (1) AAA (abdominal aortic aneurysm) without rupture Code(s): I71.4 - ABDOMINAL AORTIC ANEURYSM, WITHOUT RUPTURE (2) HTN (hypertension) Code(s): I10 - ESSENTIAL (PRIMARY) HYPERTENSION (3) Hypomagnesemia Code(s): E83.42 - HYPOMAGNESEMIA Assessment/Plan (1) AAA (abdominal aortic aneurysm) without rupture Assessment/Plan: -s/p repair -continue ICU monitoring -Dr Duncan managing and case discussed Code(s): I71.4 - ABDOMINAL AORTIC ANEURYSM, WITHOUT RUPTURE (2) HTN (hypertension) Assessment/Plan: -no longer hypotensive -dopamine stopped -now on nicardipine gtt for control Code(s): I10 - ESSENTIAL (PRIMARY) HYPERTENSION (3) Hypomagnesemia Assessment/Plan: -replaced Code(s): E83.42 - HYPOMAGNESEMIA
[2016-12-29] MEDS ORDERED: HYDROmorphone *PCA* 10MG/50ML DISP.SYRIN PCA ONE (12:04)
[2016-12-29] MEDS: HYDROmorphone *PCA* 10MG/50ML DISP.SYRIN PCA SCH (12:19)
[2016-12-29] MEDS ORDERED: FUROSEMIDE 40 MG/4 ML INJECTABLE VIAL IVPUSH ONE (14:06)
[2016-12-29] MEDS ORDERED: FUROSEMIDE 40 MG/4 ML INJECTABLE VIAL ONE (17:37)
[2016-12-29] MEDS ORDERED: ACETAMINOPHEN 325 MG TABLET (FP) PO PRN (22:51)
[2016-12-30] MEDS ORDERED: niCARdipine HCL 25 MG/10 ML AMPUL IVPB ONE ×2 (02:38→21:36)
--- NOTE | 2016-12-30 07:34 | PN ---
Progress Note (short form) - Note Progress Note: Patient stable.Epidural cathater was taken out at 20.55 last night.Tip of the cathater intact.
[2016-12-30 07:35] LABS: BASOPHIL 0.1 % (0-2.0); EOSINOPHIL 0.2 % (0-4.5); MCH 31.4 pg (25.7-33.7); MCHC 33.6 g/dl (32.0-35.9); MEAN CELL VOLUME 93.5 fl (80-96); MEAN PLT VOLUME 8.1 fl (7.5-11.1); NEUTROPHILS 84.9 % (42.8-82.8); PLATELET COUNT 138 K/MM3 (134-434); WHITE BLOOD COUNT 11.8 K/mm3 (4.0-10.0)
[2016-12-30 07:54] LABS: ANION GAP 7 (8-16); CALCIUM 8.3 mg/dL (8.5-10.1); CO2 30 mmol/L (21-32); CREATININE 0.9 mg/dL (0.7-1.3); GLUCOSE,RANDOM 105 mg/dL (74-106); MAGNESIUM 2.2 mg/dL (1.8-2.4); PHOSPHOROUS 2.1 mg/dL (2.5-4.9)
[2016-12-30] MEDS: DOPAMINE HCL 400,000 MCG in SODIUM CHLORIDE 240 ML IV SCH (09:21)
[2016-12-30] MEDS: NICARDIPINE 25 MG in DEXTROSE 5%-WATER - 240 ML IVPB SCH (09:21)
--- NOTE | 2016-12-30 09:22 | PN ---
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 Afebrile, VSS Abd mildly distended, no guarding. Wound C/D/I Ext 1+ edema, feet warm. Pulses palpable in both DP Hgb 11.7 BUN 19/ Cr0.9 Imp: Stable course. Improving. Plan: OOB. Clear liquid diet. Leave breen due to bladder wall repair. Transfer to floor care. Problem List - Problems (1) AAA (abdominal aortic aneurysm) without rupture Code(s): I71.4 - ABDOMINAL AORTIC ANEURYSM, WITHOUT RUPTURE
[2016-12-30] MEDS: ENOXAPARIN NA (PORCINE) 40 MG/0.4 ML DISP.SYRIN SQ SCH (10:49)
[2016-12-30] MEDS: LACTATED RINGERS SOLUTION 1,000 ML IV SCH (10:49)
[2016-12-30] MEDS: PANTOPRAZOLE SODIUM 40 MG/100 ML PRE-DOCKED IVPB SCH (10:49)
[2016-12-30] MEDS: HYDROmorphone *PCA* 10MG/50ML DISP.SYRIN PCA SCH (10:50)
--- NOTE | 2016-12-30 11:10 | PN ---
Progress Note, Physician Chief Complaint: Mr Ng says he is feeling much better. Pain is resolving. No cp, sob, n/v. - Current Medication List Current Medications: Active Medications Acetaminophen (Tylenol -) 650 mg PO Q4H PRN PRN Reason: FEVER OR PAIN Alprazolam (Xanax -) 0.25 mg PO Q8H PRN PRN Reason: ANXIETY Enoxaparin Sodium (Lovenox -) 40 mg SQ DAILY DARIUS Last Admin: 12/30/16 10:49 Dose: 40 mg Hydromorphone HCl (Dilaudid Scaffolding Helper -) 0 mg WARD MAID WARD MAID DARIUS PRN Reason: Protocol Stop: 01/05/17 10:32 Last Admin: 12/30/16 10:50 Dose: Not Given Dopamine HCl 400,000 mcg/ (Sodium Chloride) 250 mls @ 6.06 mls/hr IV TITR DARIUS; 2 MCG/KG/MIN PRN Reason: Protocol Last Admin: 12/30/16 09:21 Dose: Not Given Nicardipine HCl 25 mg/ (Dextrose) 250 mls @ 25 mls/hr IVPB TITR DARIUS; 2.5 MG/HR PRN Reason: Protocol Last Admin: 12/30/16 09:21 Dose: Not Given Lactated Ringer's (Lactated Ringers Solution) 1,000 mls @ 75 mls/hr IV ASDIR DARIUS Last Admin: 12/30/16 10:49 Dose: 75 mls/hr Potassium Phosphate 8 mm/ (Sodium Chloride) 252.6667 mls @ 63.167 mls/hr IVPB ONCE ONE Stop: 12/30/16 15:14 Morphine Sulfate (Morphine Injection -) 4 mg IVPUSH Q3H PRN PRN Reason: PAIN Last Admin: 12/28/16 15:47 Dose: 4 mg Pantoprazole Sodium (Protonix 40mg Ivpb (Pre-Docked)) 40 mg IVPB DAILY DARIUS Last Admin: 12/30/16 10:49 Dose: 40 mg - Objective Vital Signs: Vital Signs Temperature 36.7 C 12/30/16 10:00 Pulse Rate 85 12/30/16 10:00 Respiratory Rate 12 12/30/16 10:00 Blood Pressure 145/102 12/30/16 10:00 O2 Sat by Pulse Oximetry (%) 98 12/30/16 09:42 Constitutional: Yes: Well Nourished, No Distress, Calm Cardiovascular: Yes: Regular Rate and Rhythm. No: Gallop, Murmur, Rub Respiratory: Yes: Regular, CTA Bilaterally. No: Rales, Rhonchi, Wheezes Gastrointestinal: Yes: Normal Bowel Sounds, Soft. No: Distention, Tenderness Extremities: Yes: WNL Edema: No Labs: CBC, BMP 12/30/16 06:45 12/30/16 06:45 INR, PTT INR 1.20 (0.82-1.09) H 12/28/16 06:10 Problem List - Problems (1) AAA (abdominal aortic aneurysm) without rupture Code(s): I71.4 - ABDOMINAL AORTIC ANEURYSM, WITHOUT RUPTURE (2) HTN (hypertension) Code(s): I10 - ESSENTIAL (PRIMARY) HYPERTENSION (3) Hypomagnesemia Code(s): E83.42 - HYPOMAGNESEMIA Assessment/Plan (1) AAA (abdominal aortic aneurysm) without rupture Assessment/Plan: -s/p repair -safe for transfer to floor Code(s): I71.4 - ABDOMINAL AORTIC ANEURYSM, WITHOUT RUPTURE (2) HTN (hypertension) Assessment/Plan: -currently on nicardipine gtt -will need to transition to oral medications prior to transfer -was on lisinopril as an outpatient -d/w surgical team, ? blood pressure goals in patient s/p AAA repair -await confirmation and if ACEI and BB are preferable for treatment Code(s): I10 - ESSENTIAL (PRIMARY) HYPERTENSION (3) Hypophosphatemia Assessment/Plan: -replace Code(s): E83.42 - HYPOMAGNESEMIA
--- NOTE | 2016-12-30 11:14 | PN ---
Progress Note (short form) - Note Progress Note: Anesthesia/Pain Pt seen and examined S:alert and awake comfortable O: Vital Signs Temperature 98.1 F 12/30/16 10:00 Pulse Rate 85 12/30/16 10:00 Respiratory Rate 12 12/30/16 10:00 Blood Pressure 145/102 12/30/16 10:00 O2 Sat by Pulse Oximetry (%) 98 12/30/16 09:42 CBC, BMP 12/30/16 06:45 12/30/16 06:45 a/p: Current Active Problems AAA (abdominal aortic aneurysm) without rupture (Acute) HTN (hypertension) (Acute) Hypomagnesemia (Acute) a/p AAA repair Epidural removed and IV ONLINE PROJECT MANAGER started comfortable with IV ONLINE PROJECT MANAGER Continue current care Raymundo Funez
[2016-12-30] MEDS ORDERED: POTASSIUM PHOSPHATE 8 MM in SODIUM CHLORIDE 250 ML IVPB ONE (11:15)
--- NOTE | 2016-12-30 12:59 | PN ---
Teaching Attending Note Name of Resident: Haroon Watson ATTENDING PHYSICIAN STATEMENT I saw and evaluated the patient. I reviewed the resident's note and discussed the case with the resident. I agree with the resident's findings and plan as documented. SUBJECTIVE: Pt seen and examined in the ICU. Remains on cardene gtt. Denies shortness of breath or chest pain. No fevers or chills. Pain better controlled on CREEL HAND pump. OBJECTIVE: Last Vital Signs Temp Pulse Resp BP Pulse Ox 98.1 F 85 12 145/102 98 12/30/16 10:00 12/30/16 10:00 12/30/16 10:00 12/30/16 10:00 12/30/16 09:42 Intake & Output 12/27/16 12/28/16 12/29/16 12/30/16 23:59 23:59 23:59 23:59 Intake Total 5860 7511.8 1100 1260 Output Total 2980 1510 2950 850 Balance 2880 6001.8 -1850 410 Weight 193 lb 9.6 oz 194 lb 12.8 oz Gen: NAD at rest Heart: RRR Lung: decreased breath sounds at the bases Abd: soft, nontender Ext: no edema, +DP CBC, BMP 12/30/16 06:45 12/30/16 06:45 Active Medications Acetaminophen (Tylenol -) 650 mg PO Q4H PRN PRN Reason: FEVER OR PAIN Alprazolam (Xanax -) 0.25 mg PO Q8H PRN PRN Reason: ANXIETY Enoxaparin Sodium (Lovenox -) 40 mg SQ DAILY DARIUS Last Admin: 12/30/16 10:49 Dose: 40 mg Hydromorphone HCl (Dilaudid Retail Sales Associate Bilingual -) 0 mg CREEL HAND CREEL HAND DARIUS PRN Reason: Protocol Stop: 01/05/17 10:32 Last Admin: 12/30/16 10:50 Dose: Not Given Nicardipine HCl 25 mg/ (Dextrose) 250 mls @ 25 mls/hr IVPB TITR DARIUS; 2.5 MG/HR PRN Reason: Protocol Last Admin: 12/30/16 09:21 Dose: Not Given Potassium Phosphate 8 mm/ (Sodium Chloride) 252.6667 mls @ 63.167 mls/hr IVPB ONCE ONE Stop: 12/30/16 15:14 Morphine Sulfate (Morphine Injection -) 4 mg IVPUSH Q3H PRN PRN Reason: PAIN Last Admin: 12/28/16 15:47 Dose: 4 mg ASSESSMENT AND PLAN: AAA s/p open repair with right iliac and left femoral bypass Hemorrrhagic/Hypovolemic Shock resolved Hypertension - d/c IVF - taper off cardene gtt - monitor H/H - start PO meds - pain control - incentive spirometry - DVT prophylaxis - can monitor on surgical floor
[2016-12-30] MEDS ORDERED: LISINOPRIL 20 MG TABLET (FP) PO ONE (14:35)
--- NOTE | 2016-12-30 14:38 | PN ---
Progress Note, Physician Chief Complaint: s/p AAA repair History of Present Illness: Pt is POD#3 from AAA repair. Patient states that his pain is controlled on a TELEVISION PRODUCTION ASSISTANT pump. No BMs overnight. - Current Medication List Current Medications: Active Medications Acetaminophen (Tylenol -) 650 mg PO Q4H PRN PRN Reason: FEVER OR PAIN Alprazolam (Xanax -) 0.25 mg PO Q8H PRN PRN Reason: ANXIETY Enoxaparin Sodium (Lovenox -) 40 mg SQ DAILY DARIUS Last Admin: 12/30/16 10:49 Dose: 40 mg Hydromorphone HCl (Dilaudid Reference Assistant -) 0 mg TELEVISION PRODUCTION ASSISTANT TELEVISION PRODUCTION ASSISTANT DARIUS PRN Reason: Protocol Stop: 01/05/17 10:32 Last Admin: 12/30/16 10:50 Dose: Not Given Nicardipine HCl 25 mg/ (Dextrose) 250 mls @ 25 mls/hr IVPB TITR DARIUS; 2.5 MG/HR PRN Reason: Protocol Last Admin: 12/30/16 09:21 Dose: Not Given Potassium Phosphate 8 mm/ (Sodium Chloride) 252.6667 mls @ 63.167 mls/hr IVPB ONCE ONE Stop: 12/30/16 15:14 Lisinopril (Prinivil) 20 mg PO ONCE ONE Stop: 12/30/16 14:36 Morphine Sulfate (Morphine Injection -) 4 mg IVPUSH Q3H PRN PRN Reason: PAIN Last Admin: 12/28/16 15:47 Dose: 4 mg - Objective Vital Signs: Vital Signs Temperature 98.1 F 12/30/16 10:00 Pulse Rate 85 12/30/16 10:00 Respiratory Rate 12 12/30/16 10:00 Blood Pressure 145/102 12/30/16 10:00 O2 Sat by Pulse Oximetry (%) 98 12/30/16 09:42 Constitutional: Yes: Well Nourished, No Distress, Calm HENT: Yes: Atraumatic, Normocephalic Neck: Yes: Supple, Trachea Midline Cardiovascular: Yes: Regular Rate and Rhythm, S1, S2, Other (dopplerable pulses bilaterally). No: JVD, Gallop, Murmur, Rub Respiratory: Yes: Regular, CTA Bilaterally, Other (decreased breath sounds noted at the bases) Gastrointestinal: Yes: Normal Bowel Sounds, Soft. No: Distention, Tenderness Neurological: Yes: Alert, Oriented Psychiatric: Yes: Alert, Oriented Labs: CBC, BMP 12/30/16 06:45 12/30/16 06:45 INR, PTT INR 1.20 (0.82-1.09) H 12/28/16 06:10 Problem List - Problems (1) AAA (abdominal aortic aneurysm) without rupture Code(s): I71.4 - ABDOMINAL AORTIC ANEURYSM, WITHOUT RUPTURE Assessment/Plan 56 yo M s/p AAA open repair, POD 3. Cardio: -Hypertension s/p AAA repair -will transition patient to PO antihypertensives as per Vascular surgery under the guidance of cardiology -Lisinopril 20mg PO once today as per cardio -nicardipine drip discontinued -maintain MAP between 65 and 80 -will begin lisinopril 10 PO and lopressor 25 PO tomorrow AM as per cardio Prophylaxis: -lovenox 40 SQ for DVT prophylaxsis -Protonix 40mg PO daily FEN: -no indications for fluids at this time; patient is eating and able to self diurese -phosphorous 2.1; repleted -Clear liquid diet as per vascular surgery Dispo: -Patient is stable to transfer to the floors once PO antihypertensive regimen established -critical care time 40 mins Lines/tubes: -breen -right IJ CVC inserted 12/27
--- NOTE | 2016-12-30 15:17 | PATH ---
Surgical Pathology Report Patient Name: KRISHNA TRUJILLO Med. Rec. #: [id number] /Age/Gender: 1960 (Age: 56) / M Account: [id number] Location: ICU DETECTIVE SERGEANT Taken: 12/27/2016 Received: 12/28/2016 Reported: 12/30/2016 Physicians: Ruddy Duncan M.D. 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 SEE COMMENT. Comment: EVG elastin stain highlights marked degeneration of elastic fibers and accumulation of mucopolysaccharide matrix material. This histologic finding, while not specific, may be seen in collagen/ elastin degenerative diseases involving blood vessels including genetic disorders, such as Marfan's and Yusra-Danlos syndromes among others. Clinical and genetic correlations are suggested. Electronically Signed John Syed M.D. Gross Description Received in formalin labelled "biopsy of aorta wall" is a 1.6 x 0.9 x 0.9 cm piece of draper and brown tissue. Sectioned and totally submitted in one cassette. [facility]/12/28/2016 [facility]/12/28/2016
--- NOTE | 2016-12-30 21:29 | PN ---
Progress Note (short form) - Note Progress Note: CC: AAA/pre-op S: just transitioned off nicardipine drip. About to start po anti-htn regimen. advanced to clears. no cp, palps, dizziness, sob. cxr with some congestion, ivf stopped. Current Medications Acetaminophen (Tylenol -) 650 mg PO Q4H PRN PRN Reason: FEVER OR PAIN Enoxaparin Sodium (Lovenox -) 40 mg SQ DAILY [facility] Last Admin: 12/30/16 10:49 Dose: 40 mg Hydromorphone HCl (Dilaudid Senior Salesforce Developer -) 0 mg TICKETING AGENT TICKETING AGENT [facility] PRN Reason: Protocol Stop: 01/05/17 10:32 Last Admin: 12/30/16 10:50 Dose: Not Given Nicardipine HCl 25 mg/ (Dextrose) 250 mls @ 25 mls/hr IVPB TITR [facility]; 2.5 MG/HR PRN Reason: Protocol Last Titration: 12/30/16 14:00 Dose: 0 mg/hr Pantoprazole Sodium (Protonix -) 40 mg PO DAILY [facility] Vital Signs - 24 hr 12/29/16 12/29/16 12/30/16 22:00 23:00 00:00 Temperature 100.2 F H Pulse Rate 87 81 83 Respiratory 16 12 13 Rate Blood Pressure 138/93 135/97 139/88 O2 Sat by Pulse Oximetry (%) 12/30/16 12/30/16 12/30/16 01:00 02:00 03:02 Temperature 98.9 F Pulse Rate 90 90 85 Respiratory 17 16 16 Rate Blood Pressure 136/96 141/101 142/97 O2 Sat by Pulse Oximetry (%) 12/30/16 12/30/16 12/30/16 04:00 05:00 06:00 Temperature 98.2 F Pulse Rate 88 89 90 Respiratory 16 18 20 Rate Blood Pressure 141/101 136/96 145/102 O2 Sat by Pulse Oximetry (%) 12/30/16 12/30/16 12/30/16 08:00 09:00 09:42 Temperature Pulse Rate 91 H Respiratory 18 Rate Blood Pressure 148/98 O2 Sat by Pulse 98 98 Oximetry (%) 12/30/16 12/30/16 12/30/16 10:00 12:00 14:00 Temperature 98.1 F 98.4 F Pulse Rate 85 111 H 115 H Respiratory 12 20 14 Rate Blood Pressure 145/102 137/103 114/99 O2 Sat by Pulse Oximetry (%) 12/30/16 12/30/16 12/30/16 16:00 18:00 20:00 Temperature 99.6 F Pulse Rate 100 H 89 83 Respiratory 25 H 22 20 Rate Blood Pressure 117/97 146/98 147/95 O2 Sat by Pulse Oximetry (%) 12/30/16 21:00 Temperature Pulse Rate 85 Respiratory 20 Rate Blood Pressure 151/97 O2 Sat by Pulse Oximetry (%) Intake & Output 12/28/16 12/29/16 12/30/16 12/31/16 07:59 07:59 07:59 07:59 Intake Total 49988 2761.8 2360 1700 Output Total 3690 800 3400 400 Balance 6920 1961.8 -1040 1300 Weight 193 lb 9.6 oz 194 lb 12.8 oz Constitutional: Yes: Well Nourished, No Distress Eyes: No: Sclera Icterus HENT: No: Nasal Congestion Neck: No: Decreased ROM Respiratory: Yes: left basilar dullness. No: Accessory Muscle Use, Rales, Wheezes Gastrointestinal: Yes: Normal Bowel Sounds, No: Distention, Hepatomegaly, mild Tenderness at wound Cardiovascular: Yes: Regular Rate and Rhythm JVD: No Heart Sounds: Yes: S1, S2. No: Gallop Murmur: No: Systolic Murmur, Diastolic Murmur Extremities: No: Cold, Cyanosis Edema: No Peripheral Pulses: 2+ Left Doralis Pedis, 2+ Right Dorsalis Pedis Integumentary: No: Jaundice diaphoresis Neurological: Yes: Alert, Oriented (x3) Psychiatric: No: Agitated CBC, BMP 12/30/16 06:45 12/30/16 06:45 tele: SR repeat cxr today with increased congestion. Imaging - Results Cat Scan: Report Reviewed ECG 12/26: NSR, nl axis/intervals; no path q's, no ST-T abn a/p: 56 yo former smoker with h/o htn, ? 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 AAA: -8cm AAA (infrarenal) -possible RFs included untreated BP x many yrs prior to dx in 2012 (was 150/100 range at time of dx)--BP controlled well until past 6 mo or so -father with h/o sudden (presumed [place])--? was aortic rupture -diast BP here initially 95-117--suspect occult chronic HTN may be cause of his aorta aneurysm here -agree pt should have outpatient genetic testing for aortopathies including Marfan's, Loewys-Peter, and vascular Ehler's Danlos (interestingly, no atherosclerotic disease of other vessels is noted on CTA chest/abdomen here) -now s/p surgery (noted to have additional infrarenal and iliac aneurysms as well as bifid vena cava) --> Open repair of abdominal aortic aneurysm with right iliac and left femoral bypass with graft on 12/27. vascular following. - 12/30: cxr with some increased congestion, IVF stopped. patient asx. monitor. HTN: -high DBP on admission, improved after iv hydral, iv BB -then with post op hypotension on dopamine (s/p blood loss/fluid shifts during surgery). -now bp improved/elevated off dopa so nicardipine gtt added for bp control until able to take po meds. - 12/30 weaned off nicardipine drip. starting po regimen. resume TATIANA/bb as tolerated.
[2016-12-30] MEDS ORDERED: NICARDIPINE 25 MG in DEXTROSE 5%-WATER - 240 ML IVPB SCH (21:45)
[2016-12-30] MEDS ORDERED: FUROSEMIDE 40 MG/4 ML INJECTABLE VIAL IVPUSH ONE (22:07)
[2016-12-31] MEDS: NICARDIPINE 25 MG in DEXTROSE 5%-WATER - 240 ML IVPB SCH (04:55)
[2016-12-31] MEDS ORDERED: niCARdipine HCL 25 MG/10 ML AMPUL IVPB ONE (05:45)
[2016-12-31 06:13] LABS: BASOPHIL 0.2 % (0-2.0); EOSINOPHIL 0.9 % (0-4.5); MCH 32.3 pg (25.7-33.7); MCHC 34.7 g/dl (32.0-35.9); MEAN PLT VOLUME 8.1 fl (7.5-11.1); NEUTROPHILS 77.6 % (42.8-82.8); PLATELET COUNT 178 K/MM3 (134-434); RDW 13.5 % (11.9-15.9); WHITE BLOOD COUNT 8.3 K/mm3 (4.0-10.0)
[2016-12-31 06:43] LABS: ALBUMIN 2.3 g/dl (3.4-5.0); ANION GAP 7 (8-16); CALCIUM 8.1 mg/dL (8.5-10.1); CO2 31 mmol/L (21-32); GLUCOSE,RANDOM 106 mg/dL (74-106); MAGNESIUM 2.3 mg/dL (1.8-2.4); SGOT/AST 10 U/L (15-37); SGPT/ALT 12 U/L (12-78)
[2016-12-31 06:45] LABS: ALK PHOS 38 U/L (45-117); BILIRUBIN,TOTAL 0.8 mg/dL (0.2-1.0); TOT PROT 4.7 g/dl (6.4-8.2)
[2016-12-31] MEDS: NAPH,MB-DB/K PH,MBDB POWDER PACKET PO SCH ×3 (07:15→21:37)
--- NOTE | 2016-12-31 08:36 | PN ---
Progress Note (short form) - Note Progress Note: POD 4 No pain T 100, Bp controlled Abd mildly distended, no guarding. Wound C/D/I Ext less edema, feet warm. Pulses palpable in both DP Hgb 11 Imp: Stable course. OOB. Plan: OOB. Clear liquid diet. Leave breen due to bladder wall repair. D/C PROFESSIONAL ARCHITECT Transfer to floor care. Problem List - Problems (1) AAA (abdominal aortic aneurysm) without rupture Code(s): I71.4 - ABDOMINAL AORTIC ANEURYSM, WITHOUT RUPTURE
[2016-12-31] MEDS ORDERED: METOPROLOL TARTRATE 25 MG TABLET (FP) PO SCH ×2 (10:00)
[2016-12-31] MEDS ORDERED: LISINOPRIL 10 MG TABLET (FP) PO SCH (10:00)
[2016-12-31] MEDS ORDERED: PANTOPRAZOLE 40 MG TABLET (FP) PO SCH (10:00)
--- NOTE | 2016-12-31 10:33 | PN ---
Progress Note, Physician Chief Complaint: Mr Ng is without complaint. Denies cp, sob, n/v, abdominal pain. - Current Medication List Current Medications: Active Medications Acetaminophen (Tylenol -) 650 mg PO Q4H PRN PRN Reason: FEVER OR PAIN Enoxaparin Sodium (Lovenox -) 40 mg SQ DAILY [facility] Last Admin: 12/30/16 10:49 Dose: 40 mg Nicardipine HCl 25 mg/ (Dextrose) 250 mls @ 25 mls/hr IVPB TITR [facility]; 2.5 MG/HR PRN Reason: Protocol Last Admin: 12/31/16 04:55 Dose: 25 mls/hr Lisinopril (Prinivil) 10 mg PO DAILY [facility] Metoprolol Tartrate (Lopressor -) 25 mg PO BID [facility] Pantoprazole Sodium (Protonix -) 40 mg PO DAILY [facility] Potassium Phos/Sodium Phos (Phos-Nak Packet -) 1 packet PO TID [facility] - Objective Vital Signs: Vital Signs Temperature 37.8 C H 12/31/16 06:40 Pulse Rate 102 H 12/31/16 09:00 Respiratory Rate 20 12/31/16 09:00 Blood Pressure 140/62 12/31/16 09:00 O2 Sat by Pulse Oximetry (%) 95 12/31/16 08:00 Constitutional: Yes: Well Nourished, No Distress, Calm Cardiovascular: Yes: Regular Rate and Rhythm. No: Gallop, Murmur, Rub Respiratory: Yes: Regular, CTA Bilaterally. No: Rales, Rhonchi, Wheezes Gastrointestinal: Yes: Normal Bowel Sounds, Soft. No: Distention, Tenderness Extremities: Yes: WNL Edema: No Labs: CBC, BMP 12/31/16 05:20 12/31/16 05:20 INR, PTT INR 1.20 (0.82-1.09) H 12/28/16 06:10 Problem List - Problems (1) AAA (abdominal aortic aneurysm) without rupture Code(s): I71.4 - ABDOMINAL AORTIC ANEURYSM, WITHOUT RUPTURE (2) HTN (hypertension) Code(s): I10 - ESSENTIAL (PRIMARY) HYPERTENSION (3) Hypomagnesemia Code(s): E83.42 - HYPOMAGNESEMIA Assessment/Plan (1) AAA (abdominal aortic aneurysm) without rupture Assessment/Plan: -s/p repair -safe for transfer to floor Code(s): I71.4 - ABDOMINAL AORTIC ANEURYSM, WITHOUT RUPTURE (2) HTN (hypertension) Assessment/Plan: -continue to wean nicardipine gtt -lisinopril and metoprolol added -well controlled -transfer to floor when nicardipine gtt is off Code(s): I10 - ESSENTIAL (PRIMARY) HYPERTENSION (3) Hypophosphatemia Assessment/Plan: -oral replacement Code(s): E83.42 - HYPOMAGNESEMIA
[2016-12-31] MEDS: ENOXAPARIN NA (PORCINE) 40 MG/0.4 ML DISP.SYRIN SQ SCH (11:25)
--- NOTE | 2016-12-31 11:34 | PN ---
Teaching Attending Note Name of Resident: Haroon Watson ATTENDING PHYSICIAN STATEMENT I saw and evaluated the patient. I reviewed the resident's note and discussed the case with the resident. I agree with the resident's findings and plan as documented. SUBJECTIVE: Pt seen and examined in the ICU. Placed back on cardene gtt overnight. Denies shortness of breath, chest pain. No fevers or chills. Pain controlled. OBJECTIVE: Last Vital Signs Temp Pulse Resp BP Pulse Ox 100.0 F H 102 H 20 140/62 95 12/31/16 06:40 12/31/16 09:00 12/31/16 09:00 12/31/16 09:00 12/31/16 08:00 Intake & Output 12/28/16 12/29/16 12/30/16 12/31/16 23:59 23:59 23:59 23:59 Intake Total 7511.8 1100 2960 990 Output Total 1510 2950 1150 1810 Balance 6001.8 -1850 1810 -820 Weight 193 lb 9.6 oz 194 lb 12.8 oz 196 lb 13.965 oz Gen: NAD at rest Heart: tachycardic, regular Lung: decreased breath sounds at the bases Abd: soft, incisions clean Ext: no edema CBC, BMP 12/31/16 05:20 12/31/16 05:20 Active Medications Acetaminophen (Tylenol -) 650 mg PO Q4H PRN PRN Reason: FEVER OR PAIN Enoxaparin Sodium (Lovenox -) 40 mg SQ DAILY [facility] Last Admin: 12/31/16 11:25 Dose: 40 mg Nicardipine HCl 25 mg/ (Dextrose) 250 mls @ 25 mls/hr IVPB TITR [facility]; 2.5 MG/HR PRN Reason: Protocol Last Admin: 12/31/16 04:55 Dose: 25 mls/hr Lisinopril (Prinivil) 10 mg PO DAILY [facility] Last Admin: 12/31/16 11:25 Dose: 10 mg Metoprolol Tartrate (Lopressor -) 25 mg PO BID [facility] Last Admin: 12/31/16 11:25 Dose: 25 mg Pantoprazole Sodium (Protonix -) 40 mg PO DAILY [facility] Last Admin: 12/31/16 11:25 Dose: 40 mg Potassium Phos/Sodium Phos (Phos-Nak Packet -) 1 packet PO TID [facility] Last Admin: 12/31/16 07:15 Dose: Not Given ASSESSMENT AND PLAN: AAA s/p open repair with right iliac and left femoral bypass Hemorrrhagic/Hypovolemic Shock resolved Hypertension - titrate PO BP meds - taper off cardene gtt - monitor H/H - pain control - incentive spirometry - DVT prophylaxis - OOB to chair, ambulate - can monitor on surgical floor
--- NOTE | 2016-12-31 11:47 | PN ---
Progress Note (short form) - Note Progress Note: anesthesia/pain note, POD#4 S/P AAA open repair. HEAVY EQUIPMENT OPERATOR/PAVER d/c'd. Pat seen and examined. VSS. sitting in chair. comfortable. Pain controlled. Signed off.
--- NOTE | 2016-12-31 14:14 | PN ---
Progress Note, Physician Chief Complaint: s/p AAA repair History of Present Illness: Pt is POD#4 from AAA repair. Patient no longer needs SPANNER OPERATOR to control pain. Passing gas overnight. - Current Medication List Current Medications: Active Medications Acetaminophen (Tylenol -) 650 mg PO Q4H PRN PRN Reason: FEVER OR PAIN Enoxaparin Sodium (Lovenox -) 40 mg SQ DAILY [facility] Last Admin: 12/31/16 11:25 Dose: 40 mg Lisinopril (Prinivil) 10 mg PO DAILY [facility] Last Admin: 12/31/16 11:25 Dose: 10 mg Metoprolol Tartrate (Lopressor -) 25 mg PO BID [facility] Last Admin: 12/31/16 11:25 Dose: 25 mg Pantoprazole Sodium (Protonix -) 40 mg PO DAILY [facility] Last Admin: 12/31/16 11:25 Dose: 40 mg Potassium Phos/Sodium Phos (Phos-Nak Packet -) 1 packet PO TID [facility] Last Admin: 12/31/16 07:15 Dose: Not Given - Objective Vital Signs: Vital Signs Temperature 99.0 F 12/31/16 11:00 Pulse Rate 76 12/31/16 13:00 Respiratory Rate 20 12/31/16 12:00 Blood Pressure 127/93 12/31/16 13:00 O2 Sat by Pulse Oximetry (%) 95 12/31/16 08:00 Constitutional: Yes: Well Nourished, No Distress HENT: Yes: Atraumatic, Normocephalic Neck: Yes: Supple, Trachea Midline Cardiovascular: Yes: Regular Rate and Rhythm, S1, S2. No: JVD, Gallop, Murmur, Rub Respiratory: Yes: Regular, CTA Bilaterally, Diminished (at bases) Gastrointestinal: Yes: Normal Bowel Sounds, Soft, Other (surgical scar down midline without erythema or confluence). No: Distention, Tenderness Peripheral Pulses: Left Doralis Pedis: 2+, Right Dorsalis Pedis: 2+ Wound/Incision: Yes: Clean/Dry, Well Approximated, Loving Intact, Open to air Neurological: Yes: Alert, Oriented, Cran Nerves II-XII Intact. No: Numbness, Tingling Psychiatric: Yes: Alert, Oriented Labs: CBC, BMP 12/31/16 05:20 12/31/16 05:20 INR, PTT INR 1.20 (0.82-1.09) H 08/22/17 06:10 Problem List - Problems (1) AAA (abdominal aortic aneurysm) without rupture Code(s): I71.4 - ABDOMINAL AORTIC ANEURYSM, WITHOUT RUPTURE (2) HTN (hypertension) Code(s): I10 - ESSENTIAL (PRIMARY) HYPERTENSION Assessment/Plan 56 yo M s/p AAA open repair, POD 4. Cardio: -Hypertension -began lisinopril 10 PO and lopressor 25 PO as per cardio -nicardipine drip discontinued Prophylaxis: -lovenox 40 SQ for DVT prophylaxsis -Protonix 40mg PO daily FEN: -no indications for fluids at this time; patient is eating and able to self diurese -phosphorous 2.1; repleted -Clear liquid diet as per vascular surgery Dispo: -Patient is stable to transfer to the floors -critical care time 40 mins Lines/tubes: -breen day 4; in place as per vascular surgery -right IJ CVC inserted 12/27; day 4
[2016-12-31] MEDS ORDERED: ALPRAZolam 0.25 MG TABLET PO PRN (15:43)
[2016-12-31] MEDS ORDERED: PT OWN MED DRAWER 7, Y5N ONE (17:07)
[2016-12-31] MEDS ORDERED: LISINOPRIL 10 MG TABLET (FP) PO ONE (18:29)
[2016-12-31] MEDS ORDERED: FUROSEMIDE 40 MG/4 ML INJECTABLE VIAL IVPUSH ONE (18:30)
--- NOTE | 2016-12-31 18:31 | PN ---
Progress Note (short form) - Note Progress Note: CC: AAA/pre-op S: Yesterday transitioned off nicardipine drip. Received lasix 10 mg IV x 1 and lisinopril 20 mg po x 1. Overnight bp yari and nicardipine drip had to be resumed again. Today nicardipine drip was weaned. now s/p metoprolol tartrate 25 po, lisinopril 10 mg po x 1 CXR this am without significant improvement in congestion. tolerating clears. echo results reviewed. no cp, palps, dizziness, sob. Current Medications Acetaminophen (Tylenol -) 650 mg PO Q4H PRN PRN Reason: FEVER OR PAIN Alprazolam (Xanax -) 0.25 mg PO Q6H PRN PRN Reason: ANXIETY Stop: 01/01/17 15:42 Last Admin: 12/31/16 16:10 Dose: 0.25 mg Enoxaparin Sodium (Lovenox -) 40 mg SQ DAILY [facility] Lisinopril (Prinivil) 10 mg PO DAILY [facility] Metoprolol Tartrate (Lopressor -) 25 mg PO BID [facility] Pantoprazole Sodium (Protonix -) 40 mg PO DAILY [facility] Potassium Phos/Sodium Phos (Phos-Nak Packet -) 1 packet PO TID [facility] Vital Signs - 24 hr 12/30/16 12/30/16 12/30/16 18:00 20:00 21:00 Temperature 99.6 F Pulse Rate 89 83 85 Respiratory 22 20 20 Rate Blood Pressure 146/98 147/95 151/97 O2 Sat by Pulse Oximetry (%) 12/30/16 12/30/16 12/30/16 21:49 22:00 23:00 Temperature 99.9 F H Pulse Rate 88 89 88 Respiratory 20 18 Rate Blood Pressure 148/103 142/90 136/94 O2 Sat by Pulse Oximetry (%) 12/30/16 12/31/16 12/31/16 23:12 00:00 02:00 Temperature 99.0 F Pulse Rate 82 90 Respiratory 20 18 Rate Blood Pressure 139/84 134/84 O2 Sat by Pulse 96 Oximetry (%) 12/31/16 12/31/16 12/31/16 03:00 04:00 04:55 Temperature Pulse Rate 80 78 82 Respiratory 18 20 Rate Blood Pressure 128/86 124/81 127/88 O2 Sat by Pulse Oximetry (%) 12/31/16 12/31/16 12/31/16 05:00 06:40 08:00 Temperature 100.0 F H Pulse Rate 82 86 Respiratory 18 20 Rate Blood Pressure 127/81 126/94 O2 Sat by Pulse 95 Oximetry (%) 12/31/16 12/31/16 12/31/16 08:48 08:49 09:00 Temperature Pulse Rate 99 H 102 H Respiratory 20 20 20 Rate Blood Pressure 132/58 140/62 O2 Sat by Pulse Oximetry (%) 12/31/16 12/31/16 12/31/16 10:00 11:00 12:00 Temperature 99.0 F 99.0 F Pulse Rate 104 H 88 Respiratory 20 20 Rate Blood Pressure 116/90 116/89 O2 Sat by Pulse Oximetry (%) 12/31/16 12/31/16 12/31/16 13:00 14:00 15:00 Temperature 99.8 F H Pulse Rate 76 78 80 Respiratory Rate Blood Pressure 127/93 129/96 126/88 O2 Sat by Pulse Oximetry (%) 12/31/16 12/31/16 16:00 16:53 Temperature Pulse Rate Respiratory Rate Blood Pressure 128/82 133/90 O2 Sat by Pulse Oximetry (%) Intake & Output 12/29/16 12/30/16 12/31/16 01/01/17 07:59 07:59 07:59 07:59 Intake Total 2761.8 2360 2000 690 Output Total 800 3400 2500 1210 Balance 1961.8 -1040 -500 -520 Weight 194 lb 12.8 oz 196 lb 13.965 oz Constitutional: Yes: Well Nourished, No Distress Eyes: No: Sclera Icterus HENT: No: Nasal Congestion Neck: No: Decreased ROM Respiratory: Yes: left basilar dullness. No: Accessory Muscle Use, Rales, Wheezes Gastrointestinal: Yes: Normal Bowel Sounds, No: Distention, Hepatomegaly, mild Tenderness at wound Cardiovascular: Yes: Regular Rate and Rhythm JVD: No Heart Sounds: Yes: S1, S2. No: Gallop Murmur: No: Systolic Murmur, Diastolic Murmur Extremities: No: Cold, Cyanosis Edema: yes: dependent 1+ edema of the abdomen and upper thigh Peripheral Pulses: 2+ Left Doralis Pedis, 2+ Right Dorsalis Pedis Integumentary: No: Jaundice diaphoresis Neurological: Yes: Alert, Oriented (x3) Psychiatric: No: Agitated CBC, BMP 12/31/16 05:20 12/31/16 05:20 Laboratory Tests 12/31/16 05:20 Albumin 2.3 L tele: SR repeat cxr today, no improvement in increased congestion. Imaging - Results Cat Scan: Report Reviewed ECG 12/26: NSR, nl axis/intervals; no path q's, no ST-T abn echo 12/2016: tds. Lv fn grossly nl. tds rwma. Possible RVE, grossly nl rv function. mild ao dilation. a/p: 56 yo former smoker with h/o htn, ? 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 AAA: -8cm AAA (infrarenal) -possible RFs included untreated BP x many yrs prior to dx in 2012 (was 150/100 range at time of dx)--BP controlled well until past 6 mo or so -father with h/o sudden (presumed [place])--? was aortic rupture -diast BP here initially 95-117--suspect occult chronic HTN may be cause of his aorta aneurysm here -agree pt should have outpatient genetic testing for aortopathies including Marfan's, Loewys-Peter, and vascular Ehler's Danlos (interestingly, no atherosclerotic disease of other vessels is noted on CTA chest/abdomen here) -now s/p surgery (noted to have additional infrarenal and iliac aneurysms as well as bifid vena cava) --> Open repair of abdominal aortic aneurysm with right iliac and left femoral bypass with graft on 12/27. vascular following. Mild ao dilation noted on tte. - 12/30: cxr with some increased congestion, IVF stopped. patient asx. monitor. received lasix 10 mg IV x 1 - 12/31: no significant improvement in cxr today. Will redose lasix 10 mg IV x1. If worsening creatinine tomorrow, will cut back. echo tds, overall nl systolic function. . HTN: -high DBP on admission, improved after iv hydral, iv BB -then with post op hypotension on dopamine (s/p blood loss/fluid shifts during surgery). -now bp improved/elevated off dopa so nicardipine gtt added for bp control until able to take po meds. - 12/30 weaned off nicardipine drip. Received lasix 10 mg IV x 1 and lisinopril 20 mg po x 1. Overnight bp yari and nicardipine drip had to be resumed again. - 12/31 again weaned off nicardipine drip --> given metoprolol tartrate 25 po, lisinopril 10 mg po x 1. Would redose lisinopril 10 mg and increase daily dosing to 20 mg for tomorrow to avoid recurrence of HTN this evening. lasix 10 mg x 1 as mentioned above. cct 35 min.
[2016-12-31] MEDS: METOPROLOL TARTRATE 25 MG TABLET (FP) PO SCH (21:36)
[2017-01-01] MEDS: NAPH,MB-DB/K PH,MBDB POWDER PACKET PO SCH ×3 (06:24→21:46)
[2017-01-01 07:59] LABS: MCH 31.7 pg (25.7-33.7); MEAN CELL VOLUME 93.1 fl (80-96); MEAN PLT VOLUME 7.7 fl (7.5-11.1); PLATELET COUNT 209 K/MM3 (134-434); RDW 13.3 % (11.9-15.9)
--- NOTE | 2017-01-01 08:29 | PN ---
Progress Note (short form) - Note Progress Note: POD 5 Complains of left flank mild pain T 99, Bp controlled Abd soft, +BM Wound C/D/I Ext Feet warm. Pulses palpable in both DP Hgb 11 Imp: Stable course. OOB. Plan: OOB. Regular diet D/C breen Renal sonogram Problem List - Problems (1) AAA (abdominal aortic aneurysm) without rupture Code(s): I71.4 - ABDOMINAL AORTIC ANEURYSM, WITHOUT RUPTURE
[2017-01-01 08:40] LABS: ANION GAP 5 (8-16); CALCIUM 8.1 mg/dL (8.5-10.1); CO2 33 mmol/L (21-32); GLUCOSE,RANDOM 91 mg/dL (74-106); MAGNESIUM 2.2 mg/dL (1.8-2.4); PHOSPHOROUS 2.4 mg/dL (2.5-4.9)
[2017-01-01] MEDS ORDERED: PT OWN MED DRAWER 7, Y5N ONE (10:00)
[2017-01-01] MEDS ORDERED: LISINOPRIL 10 MG TABLET (FP) PO SCH (10:00)
[2017-01-01] MEDS: METOPROLOL TARTRATE 25 MG TABLET (FP) PO SCH ×2 (10:08→21:46)
[2017-01-01] MEDS: ENOXAPARIN NA (PORCINE) 40 MG/0.4 ML DISP.SYRIN SQ SCH (10:08)
[2017-01-01] MEDS: LISINOPRIL 10 MG TABLET (FP) PO SCH (10:08)
[2017-01-01] MEDS: PANTOPRAZOLE 40 MG TABLET (FP) PO SCH (10:09)
--- NOTE | 2017-01-01 10:37 | PN ---
Progress Note (short form) - Note Progress Note: Patient seen and examined Chart reviewed at length. Case discussed with Dr Lopez and Dr Ramesh last evening. Currently OOB from BR to bed. Denies new chest discomfort, lightheadedness, palpitations or dyspnea. Labs, radiologic procedures, and progress notes reviewed. Tolerating feedings. Medications Enoxaparin Sodium (Lovenox -) 40 mg SQ DAILY [facility] Acetaminophen (Tylenol -) 650 mg PO Q4H PRN PRN Reason: FEVER OR PAIN Lisinopril (Prinivil) 20 mg PO DAILY [facility] Alprazolam (Xanax -) 0.25 mg PO Q6H PRN PRN Reason: ANXIETY Stop: 01/01/17 15:42 Last Admin: 12/31/16 16:10 Dose: 0.25 mg Metoprolol Tartrate (Lopressor -) 25 mg PO BID [facility] Last Admin: 12/31/16 21:36 Dose: 25 mg Pantoprazole Sodium (Protonix -) 40 mg PO DAILY [facility] Potassium Phos/Sodium Phos (Phos-Nak Packet -) 1 packet PO TID [facility] Last Admin: 01/01/17 06:24 Dose: 1 packet Selected Entries 12/31/16 01/01/17 21:00 06:00 Temperature 98.9 F Pulse Rate 68 Respiratory 20 Rate Blood Pressure 143/86 O2 Sat by Pulse 95 Oximetry (%) Oxygen Delivery Room Air Method Weight 198 lb Laboratory Tests 12/31/16 01/01/17 01/01/17 05:20 06:30 06:30 WBC 8.0 Hgb 10.8 L Hct 31.8 L Plt Count 209 Sodium 137 Potassium 3.2 L Chloride 99 Carbon Dioxide 33 H BUN 19 H Creatinine 1.0 Random Glucose 91 Calcium 8.1 L Phosphorus 2.4 L Magnesium 2.2 Albumin 2.3 L Chest Decreased breath sounds left base No rhonchi or wheezing Cor RRR No new murmur Soft right femoral artery bruit Abd Post-operative Midline wound clean and dry No local tenderness Ext No evidence of phlebitis No edema Neuro No new focal deficit Assessment and Plan AAA repair As per surgical team Has risk factors of HTN and smoking, but may require further work-up for primary collagen disorder predisposing him to this problem HTN Stable Anemia 10.8/06/01 Follow post-operatively Hypokalemia 3.2 On replacement with KPhos Pleural effusion Follow Hypomagnesemia Recheck Continue current Rx Monitor BP and labs
[2017-01-02] MEDS: NAPH,MB-DB/K PH,MBDB POWDER PACKET PO SCH ×3 (07:15→21:49)
[2017-01-02 07:38] LABS: BASOPHIL 0.4 % (0-2.0); EOSINOPHIL 2.3 % (0-4.5); MCH 31.5 pg (25.7-33.7); MEAN CELL VOLUME 92.6 fl (80-96); MEAN PLT VOLUME 7.5 fl (7.5-11.1); NEUTROPHILS 70.1 % (42.8-82.8); PLATELET COUNT 246 K/MM3 (134-434); RDW 13.6 % (11.9-15.9); WHITE BLOOD COUNT 8.9 K/mm3 (4.0-10.0)
[2017-01-02 08:17] LABS: ALBUMIN 2.3 g/dl (3.4-5.0); ANION GAP 7 (8-16); BILIRUBIN,TOTAL 0.6 mg/dL (0.2-1.0); CALCIUM 7.7 mg/dL (8.5-10.1); CO2 31 mmol/L (21-32); GLUCOSE,RANDOM 85 mg/dL (74-106); MAGNESIUM 2.1 mg/dL (1.8-2.4); SGOT/AST 12 U/L (15-37); SGPT/ALT 19 U/L (12-78); TOT PROT 4.8 g/dl (6.4-8.2)
[2017-01-02 08:18] LABS: ALK PHOS 45 U/L (45-117)
[2017-01-02] MEDS ORDERED: POTASSIUM CHLORIDE TABS 20 MEQ TABLET.ER (FP) PO ONE (09:40)
--- NOTE | 2017-01-02 09:40 | PN ---
Progress Note (short form) - Note Progress Note: Patient seen and examined Chart reviewed at length. Currently OOB from BR to bed. Denies new chest discomfort, lightheadedness, palpitations or dyspnea. Labs, radiologic procedures, and progress notes reviewed. Tolerating feedings. Medications Acetaminophen (Tylenol -) 650 mg PO Q4H PRN PRN Reason: FEVER OR PAIN Lisinopril (Prinivil) 20 mg PO DAILY [facility] Last Admin: 01/01/17 10:08 Dose: 20 mg Enoxaparin Sodium (Lovenox -) 40 mg SQ DAILY [facility] Last Admin: 01/01/17 10:08 Dose: 40 mg Metoprolol Tartrate (Lopressor -) 25 mg PO BID [facility] Last Admin: 01/01/17 21:46 Dose: 25 mg Pantoprazole Sodium (Protonix -) 40 mg PO DAILY [facility] Last Admin: 01/01/17 10:09 Dose: 40 mg Potassium Phos/Sodium Phos (Phos-Nak Packet -) 1 packet PO TID [facility] Last Admin: 01/02/17 07:15 Dose: 1 packet Selected Entries 01/01/17 01/02/17 21:00 06:00 Temperature 98.4 F Pulse Rate 73 Respiratory 18 Rate Blood Pressure 152/97 O2 Sat by Pulse 97 Oximetry (%) Oxygen Delivery Room Air Method Laboratory Tests 01/02/17 01/02/17 06:30 06:30 WBC 8.9 Hgb 10.5 L Hct 30.8 L Plt Count 246 Sodium 138 Potassium 3.4 L Chloride 100 Carbon Dioxide 31 BUN 17 Creatinine 1.0 Random Glucose 85 Calcium 7.7 L Phosphorus 3.0 D Magnesium 2.1 Total Bilirubin 0.6 D AST 12 L ALT 19 D Total Protein 4.8 L Albumin 2.3 L Chest Decreased breath sounds left base No rhonchi or wheezing Cor RRR No new murmur Soft right femoral artery bruit Abd Post-operative Midline wound clean and dry No local tenderness Ext No evidence of phlebitis No edema Neuro No new focal deficit Assessment and Plan AAA repair As per surgical team Has risk factors of HTN and smoking, but may require further work-up for primary collagen disorder predisposing him to this problem HTN Persistent Anemia 10.8/31.8 >>10.5/30.8 Follow post-operatively Hypokalemia 3.2>>3.4 On replacement with KPhos will give single dose KCl Pleural effusion Follow Hypomagnesemia Recheck Hypoalbuminemia Related to acute and chronic inflammation as well as nutritional factors Corrected calcium normal Continue current Rx Monitor BP and labs
[2017-01-02] MEDS: ENOXAPARIN NA (PORCINE) 40 MG/0.4 ML DISP.SYRIN SQ SCH (09:58)
[2017-01-02] MEDS: LISINOPRIL 10 MG TABLET (FP) PO SCH (09:58)
[2017-01-02] MEDS: PANTOPRAZOLE 40 MG TABLET (FP) PO SCH (09:59)
[2017-01-02] MEDS: METOPROLOL TARTRATE 25 MG TABLET (FP) PO SCH ×2 (09:59→21:49)
[2017-01-02] MEDS: ACETAMINOPHEN 325 MG TABLET (FP) PO PRN (20:12)
[2017-01-03] MEDS: NAPH,MB-DB/K PH,MBDB POWDER PACKET PO SCH (06:19)
[2017-01-03 07:38] LABS: BASOPHIL 0.5 % (0-2.0); EOSINOPHIL 2.3 % (0-4.5); MCH 31.4 pg (25.7-33.7); MCHC 33.7 g/dl (32.0-35.9); MEAN CELL VOLUME 93.2 fl (80-96); MEAN PLT VOLUME 7.5 fl (7.5-11.1); NEUTROPHILS 71.4 % (42.8-82.8); PLATELET COUNT 287 K/MM3 (134-434); RDW 13.9 % (11.9-15.9); WHITE BLOOD COUNT 11.5 K/mm3 (4.0-10.0)
[2017-01-03 08:02] LABS: ALBUMIN 2.3 g/dl (3.4-5.0); ALK PHOS 49 U/L (45-117); ANION GAP 8 (8-16); BILIRUBIN,TOTAL 0.7 mg/dL (0.2-1.0); CO2 31 mmol/L (21-32); SGOT/AST 14 U/L (15-37); SGPT/ALT 19 U/L (12-78); TOT PROT 4.8 g/dl (6.4-8.2)
[2017-01-03 08:06] LABS: GLUCOSE,RANDOM 86 mg/dL (74-106)
[2017-01-03 08:20] VITALS: BP 158/99; PULSE 76; TEMP 98.7
--- NOTE | 2017-01-03 08:34 | PN ---
Progress Note (short form) - Note Progress Note: No c/o BP remains elevated Abd full, soft Wounds clean and dry Stable Clear for discharge as per Medicine I will see in my office in 1 week. Problem List - Problems (1) AAA (abdominal aortic aneurysm) without rupture Code(s): I71.4 - ABDOMINAL AORTIC ANEURYSM, WITHOUT RUPTURE
[2017-01-03] MEDS ORDERED: PT OWN MED DRAWER 7, Y5N ONE (08:42)
[2017-01-03] MEDS: PANTOPRAZOLE 40 MG TABLET (FP) PO SCH (10:05)
[2017-01-03] MEDS: LISINOPRIL 10 MG TABLET (FP) PO SCH (10:05)
[2017-01-03] MEDS: ENOXAPARIN NA (PORCINE) 40 MG/0.4 ML DISP.SYRIN SQ SCH (10:06)
[2017-01-03] MEDS: METOPROLOL TARTRATE 25 MG TABLET (FP) PO SCH (10:06)
[2017-01-03] MEDS: ACETAMINOPHEN 325 MG TABLET (FP) PO PRN (10:20)
--- NOTE | 2017-01-03 10:30 | PN ---
Progress Note, Physician Chief Complaint: AAA s/p repair History of Present Illness: denies abd pain, cp, sob, leg swelling - Current Medication List Current Medications: Active Medications Acetaminophen (Tylenol -) 650 mg PO Q4H PRN PRN Reason: FEVER OR PAIN Last Admin: 01/03/17 10:20 Dose: 650 mg Enoxaparin Sodium (Lovenox -) 40 mg SQ DAILY [facility] Last Admin: 01/03/17 10:06 Dose: 40 mg Lisinopril (Prinivil) 20 mg PO DAILY [facility] Last Admin: 01/03/17 10:05 Dose: 20 mg Metoprolol Tartrate (Lopressor -) 25 mg PO BID [facility] Last Admin: 01/03/17 10:06 Dose: 25 mg Pantoprazole Sodium (Protonix -) 40 mg PO DAILY [facility] Last Admin: 01/03/17 10:05 Dose: 40 mg Potassium Phos/Sodium Phos (Phos-Nak Packet -) 1 packet PO TID [facility] Last Admin: 01/03/17 06:19 Dose: 1 packet - Objective Vital Signs: Vital Signs Temperature 98.7 F 01/03/17 08:19 Pulse Rate 76 01/03/17 08:19 Respiratory Rate 20 01/03/17 08:19 Blood Pressure 158/99 01/03/17 08:19 O2 Sat by Pulse Oximetry (%) 96 01/02/17 20:47 Constitutional: Yes: Well Nourished, No Distress, Calm Cardiovascular: Yes: Regular Rate and Rhythm, S1, S2. No: Gallop, Murmur Respiratory: Yes: Regular, CTA Bilaterally. No: Accessory Muscle Use, Rales, Wheezes Extremities: No: Cold Edema: No Neurological: Yes: Alert, Oriented Psychiatric: No: Agitated Labs: CBC, BMP 01/03/17 06:30 01/03/17 06:30 INR, PTT INR 1.20 (0.82-1.09) H 12/28/16 06:10 Assessment/Plan echo 12/2016: tds. Lv fn grossly nl. tds rwma. Possible RVE, grossly nl rv function. mild ao dilation. a/p: 56 yo former smoker with h/o htn, ? 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 AAA: -8cm AAA (infrarenal) -possible RFs included untreated BP x many yrs prior to dx in 2012 (was 150/100 range at time of dx)--BP controlled well until past 6 mo or so -father with h/o sudden (presumed [place])--? was aortic rupture -diast BP here initially 95-117--suspect occult chronic HTN may be cause of his aorta aneurysm here -agree pt should have outpatient genetic testing for aortopathies including Marfan's, Loewys-Peter, and vascular Ehler's Danlos (interestingly, no atherosclerotic disease of other vessels is noted on CTA chest/abdomen here) -now s/p surgery (noted to have additional infrarenal and iliac aneurysms as well as bifid vena cava) --> Open repair of abdominal aortic aneurysm with right iliac and left femoral bypass with graft on 12/27. vascular following. Mild ao dilation noted on tte. - 12/30: cxr with some increased congestion, IVF stopped. patient asx. monitor. received lasix 10 mg IV x 1 - 12/31: no significant improvement in cxr today. Will redose lasix 10 mg IV x1. If worsening creatinine tomorrow, will cut back. echo tds, overall nl systolic function. - 01/03: cxr 01/01 with improving effusions. pt asymptomatic. expect these to progressively, gradually resolve--outpt f/u with pmd HTN: -high DBP on admission, improved after iv hydral, iv BB -then with post op hypotension on dopamine (s/p blood loss/fluid shifts during surgery). -now bp improved/elevated off dopa so nicardipine gtt added for bp control until able to take po meds. - 12/30 weaned off nicardipine drip. Received lasix 10 mg IV x 1 and lisinopril 20 mg po x 1. Overnight bp yari and nicardipine drip had to be resumed again. - 12/31 again weaned off nicardipine drip --> given metoprolol tartrate 25 po, lisinopril 10 mg po x 1. Would redose lisinopril 10 mg and increase daily dosing to 20 mg for tomorrow to avoid recurrence of HTN this evening. lasix 10 mg x 1 as mentioned above. - 01/03: bp's frequently mild-mod elevated (to 160s/90s). increase lisinopril to 40mg daily. if BP remains > 150, rec add amlodipine--bp med titration can also be done as outpt. pt informed by me to make f/u with dr davenport in 2 weeks and he verbalized understanding
--- NOTE | 2017-01-03 10:30 | DS ---
Physical Examination Vital Signs: Vital Signs Temperature 37.1 C 01/03/17 08:19 Pulse Rate 76 01/03/17 08:19 Respiratory Rate 20 01/03/17 08:19 Blood Pressure 158/99 01/03/17 08:19 O2 Sat by Pulse Oximetry (%) 96 01/02/17 20:47 Constitutional: Yes: Well Nourished, No Distress, Calm Cardiovascular: Yes: Regular Rate and Rhythm. No: Gallop, Murmur, Rub Respiratory: Yes: Regular, CTA Bilaterally. No: Rales, Rhonchi, Wheezes Gastrointestinal: Yes: Normal Bowel Sounds, Soft. No: Distention, Tenderness Extremities: Yes: WNL Edema: No Labs: CBC, BMP 01/03/17 06:30 01/03/17 06:30 Discharge Summary Reason For Visit: ABDOMINAL AORTIC ANEURYSM (AAA) WITHOUT RUPTURE Current Active Problems AAA (abdominal aortic aneurysm) without rupture (Acute) HTN (hypertension) (Acute) Hypomagnesemia (Acute) Hospital Course: (1) AAA (abdominal aortic aneurysm) without rupture Code(s): I71.4 - ABDOMINAL AORTIC ANEURYSM, WITHOUT RUPTURE (2) HTN (hypertension) Code(s): I10 - ESSENTIAL (PRIMARY) HYPERTENSION (3) Hypomagnesemia Code(s): E83.42 - HYPOMAGNESEMIA Mr Ng is a pleasant 56 year old who came in for elective AAA repair. He underwent intervention and tolerated it well. After surgery he had a spinal block that was successfully removed. 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 His blood pressure was monitored and metoprolol was added, his lisinopril was increased. Currently he is stable for discharge home. 32 minutes spent in preparation of this discharge Condition: Good - Instructions Diet, Activity, Other Instructions: ACTIVITY TOLERATED MAY TAKE SHOWER KEEP THE INCISION CLEAN AND DRY NO HEAVY LIFTING IF ANY FEVER OR DRAINAGE COMES FROM THE INCISION PLS CALL MD Referrals: Omaira Ramesh MD [Primary Care Provider] - Ruddy Duncan MD [Staff Physician] - 1 Week Disposition: HOME - Home Medications Comprehensive Discharge Medication List: Ambulatory Orders Lisinopril [Prinivil] 20 mg PO DAILY #30 tablet 01/03/17 Metoprolol Tartrate [Lopressor -] 25 mg PO BID #60 tablet 01/03/17
[2017-01-03] MEDS ORDERED: LISINOPRIL 20 MG TABLET (FP) PO ONE (10:45)
[2017-01-04] MEDS ORDERED: LISINOPRIL 20 MG TABLET (FP) PO SCH (10:00)
== END 2017-01-03 11:55 | disposition home or self-care (01) | DRG 173 ==
LOC: JER 16:45 → JERBED 19:59 → UNDOADMIN 20:15 → J4S 23:21 → JSAMEDAYSX 12-27 12:00 → JICU 12-27 21:26 → J8W 12-31 18:09
PROVIDERS: ADMIT Internal Medicine; ATTEND Internal Medicine
PROC: 04V00DZ Restriction of Abdominal Aorta with Intraluminal Device, Open Approach (ICD-10-PCS; principal; 2016-12-27 12:00)
DX: I71.4 Abdominal aortic aneurysm, without rupture (principal); I10 Essential (primary) hypertension; I45.10 Unspecified right bundle-branch block; F41.9 Anxiety disorder, unspecified; Z87.891 Personal history of nicotine dependence; I95.81 Postprocedural hypotension; E83.42 Hypomagnesemia; R57.1 Hypovolemic shock; E83.39 Other disorders of phosphorus metabolism; D64.9 Anemia, unspecified; E88.09 Other disorders of plasma-protein metabolism, not elsewhere classified
CPT/HCPCS: 36415; 36430; 36600; 71010-TC; 71020-TC; 71275-TC; 74175-TC; 76775-TC; 80048; 80053; 80061; 80076; 82553; 82803; 83605; 83721; 83735; 84100; 84484; 85025; 85027; 85610; 85730; 86850; 86891; 86900; 86901; 86922; 88305-TC; 93005; 93010; 93306-TC; 94760; 99285-25; J1644; P9047

== ENCOUNTER 2017-03-10 11:39 | Inpatient (IN) | payer OTHER ==
--- NOTE | 2017-03-10 13:47 | PDOC ---
History of Present Illness - General History Source: Patient Exam Limitations: No Limitations - History of Present Illness Initial Comments: 03/10/17 13:51 The patient is a 56 year old male, with a significant past medical history of HTN who presents to the emergency department with LE swelling. Patient is POD 72 from Triple AAA repair. Patient reports biking and hiking with no complaints yesterday but since then has developed L leg swelling. Patient was sent in for evaluation of DVT. Patient denies any calf pain, SOB, chest pain, palpitations. He denies chest pain, headache or dizziness. He denies fever, chills, abdominal pain, nausea, vomit, diarrhea or constipation. He denies dysuria, frequency, urgency or hematuria. Patient denies sick contacts or recent travel. Allergies: NKA Past surgical history: Triple AAA repair Social history: Former smoker PCP: Dr. Ramesh Surgeon: Dr. Duncan <Carmella Jain - Last Filed: 03/10/17 17:45> <Sandra Rodriguez - Last Filed: 03/10/17 17:58> - General Chief Complaint: Shortness of Breath Stated Complaint: PCP SENT FOR POSSIBLE DVT Time Seen by Provider: 03/10/17 13:22 Past History <Carmella Jain - Last Filed: 03/10/17 17:45> - Past Medical History COPD: No GI Disorders: Yes (AAA) HTN: Yes - Surgical History Abdominal Surgery: Yes (AAA REPAIR) - Suicide/Smoking/Psychosocial Hx Smoking History: Never smoked Have you smoked in the past 12 months: No Information on smoking cessation initiated: No Hx Alcohol Use: Yes (12/23 last drink-6 drinks) Drug/Substance Use Hx: No Substance Use Type: None Hx Substance Use Treatment: No <Sandra Rodriguez - Last Filed: 03/10/17 17:58> - Past Medical History Allergies/Adverse Reactions: Allergies Allergy/AdvReac Type Severity Reaction Status Date / Time No Known Allergies Allergy Verified 03/10/17 11:46 Home Medications: Ambulatory Orders Lisinopril [Prinivil] 40 mg PO DAILY #60 tablet 01/03/17 Metoprolol Tartrate [Lopressor -] 25 mg PO BID #60 tablet 01/03/17 Review of Systems - Review of Systems Able to Perform ROS?: Yes Comments:: 03/10/17 13:52 ADULT ROS GENERAL/CONSTITUTIONAL: No fever or chills. No weakness. HEAD, EYES, EARS, NOSE AND THROAT: No change in vision. No ear pain or discharge. No sore throat. CARDIOVASCULAR: No chest pain or shortness of breath. RESPIRATORY: No cough, wheezing, or hemoptysis. GASTROINTESTINAL: No nausea, vomiting, diarrhea or constipation. GENITOURINARY: No dysuria, frequency, or change in urination. MUSCULOSKELETAL: No joint or muscle swelling or pain. No neck or back pain. SKIN: No rash NEUROLOGIC: No headache, vertigo, loss of consciousness, or change in strength/ sensation. ENDOCRINE: No increased thirst. No abnormal weight change. EXTREMITIES: + L leg swelling. HEMATOLOGIC/LYMPHATIC: No anemia, easy bleeding, or history of blood clots. ALLERGIC/IMMUNOLOGIC: No hives or skin allergy. <Carmella Jain - Last Filed: 03/10/17 17:45> *Physical Exam - Vital Signs Last Vital Signs Temp Pulse Resp BP Pulse Ox 97.5 F L 84 18 114/79 99 03/10/17 11:41 03/10/17 13:16 03/10/17 13:16 03/10/17 13:16 03/10/17 13:16 - Physical Exam Comments: 03/10/17 13:52 GENERAL: Awake, alert, and fully oriented, in no acute distress HEAD: No signs of trauma EYES: PERRLA, EOMI, sclera anicteric, conjunctiva clear ENT: Auricles normal inspection, hearing grossly normal, nares patent, oropharynx clear without exudates. Moist mucosa NECK: Normal ROM, supple, no lymphadenopathy, JVD, or masses LUNGS: Breath sounds equal, clear to auscultation bilaterally. No wheezes, and no crackles HEART: Regular rate and rhythm, normal S1 and S2, no murmurs, rubs or gallops ABDOMEN: Soft, nontender, normoactive bowel sounds. No guarding, no rebound. No masses EXTREMITIES: Normal range of motion. No clubbing or cyanosis. No cords, erythema, or tenderness. +LLE 2+ pitting edema. +Swelling on entire leg. +Brisk capillary refill. +Pedal pulses in tact. NEUROLOGICAL: Cranial nerves II through XII grossly intact. Normal speech, normal gait SKIN:+Midline abdominal incision well healed. Warm, Dry, normal turgor, no rashes or lesions noted. <Carmella Jain - Last Filed: 03/10/17 17:45> - Vital Signs Last Vital Signs Temp Pulse Resp BP Pulse Ox 97.5 F L 84 18 114/79 99 03/10/17 11:41 03/10/17 13:16 03/10/17 13:16 03/10/17 13:16 03/10/17 13:16 <Sandra Rodriguez - Last Filed: 03/10/17 17:58> ED Treatment Course - LABORATORY CBC & Chemistry Diagram: 03/10/17 13:55 03/10/17 13:42 <Carmella Jain - Last Filed: 03/10/17 17:45> - LABORATORY CBC & Chemistry Diagram: 03/10/17 13:55 03/10/17 13:42 - RADIOLOGY Radiology Studies Ordered: Category Date Time Status DUPLEX VASCUL US-2LEGS [US] Stat Ultrasound 03/10/17 13:35 Ordered <Sandra Rodriguez - Last Filed: 03/10/17 17:58> Medical Decision Making - Medical Decision Making 03/10/17 15:38 Bilateral Lower extremity duplex IMPRESSION: 1. Extensive, occlusive thrombosis of the left femoropopliteal veins, extending into the greater saphenous vein, as detailed above. 2. No evidence of deep vein thrombosis in the right lower extremity, as above. These findings were discussed with Dr. Rodriguez at approximately 15:30 on 03/10. Reported By: Boby Solano MD 03/10/17 1534 03/10/17 17:44-- Dr. Duncan paged via phone answering service. Awaiting call back. 03/10/17 17:45-- Page returned and the patients case was discussed. <Carmella Jain - Last Filed: 03/10/17 17:45> - Medical Decision Making 03/10/17 13:47 a/p: 56yo male with acute onset of LLE swelling -post op 72 days, recent increase in exercise dvt vs rhabdo. doubt complication from AAA repair given brisk cap refill and pulses intact will check labs, ck doppler LE reassess 03/10/17 15:03 pt with acute dvt of the entire L leg call placed to dr tenorio given recent AAA surgery and fem iliac bypass 03/10/17 15:[address] Howard who has requested CTA abd/pelvis with venous phase if negative for acute worsening aneurysm in iliac ok to start anticoagulation. 03/10/17 15:30 called by radiology, occlusive dvt L leg 03/10/17 15:[address] garcia who accepts pt to service. 03/10/17 17:[address] imaging with dr. ta - ok to anticoagulate <Sandra Rodriguez - Last Filed: 03/10/17 17:58> *DC/Admit/Observation/Transfer - Attestations Scribe Attestion: 03/10/17 13:52 Documentation prepared by Carmella Jain, acting as medical doctor nuclear medicine for Sandra Rodriguez DO, MD/. <Carmella Jain - Last Filed: 03/10/17 17:45> - Discharge Dispostion Admit: Yes - Attestations Physician Attestion: 03/10/17 15:31 I, Dr. Sandra Rodriguez DO, attest that this document has been prepared under my direction and personally reviewed by me in its entirety. I further attest, that it accurately reflects all work, treatment, procedures and medical decision -making performed by me. <Sandra Rodriguez - Last Filed: 03/10/17 17:58> Diagnosis at time of Disposition: DVT (deep venous thrombosis) - Discharge Dispostion Condition at time of disposition: Fair - Referrals
[2017-03-10 13:59] LABS: BASOPHIL 0.6 % (0-2.0); EOSINOPHIL 0.8 % (0-4.5); MCH 30.3 pg (25.7-33.7); MCHC 33.2 g/dl (32.0-35.9); MEAN CELL VOLUME 91.5 fl (80-96); MEAN PLT VOLUME 7.5 fl (7.5-11.1); NEUTROPHILS 72.7 % (42.8-82.8); PLATELET COUNT 210 K/MM3 (134-434); RDW 15.3 % (11.9-15.9); WHITE BLOOD COUNT 8.6 K/mm3 (4.0-10.0)
[2017-03-10 14:23] LABS: INR 1.13 (0.82-1.09); PROTHROMBIN TIME (PATIENT) 12.8 SEC (9.98-11.88)
[2017-03-10 14:25] LABS: ACTIVATED PTT 23.5 SECONDS (26.9-34.4)
[2017-03-10 14:28] LABS: ALBUMIN 3.5 g/dl (3.4-5.0); ALK PHOS 75 U/L (45-117); ANION GAP 13 (8-16); BILIRUBIN,TOTAL 0.6 mg/dL (0.2-1.0); CALCIUM 8.9 mg/dL (8.5-10.1); CO2 21 mmol/L (21-32); CREATININE 0.9 mg/dL (0.7-1.3); GLUCOSE,RANDOM 103 mg/dL (74-106); SGOT/AST 19 U/L (15-37); SGPT/ALT 22 U/L (12-78); TOT PROT 7.4 g/dl (6.4-8.2)
[2017-03-10] MEDS ORDERED: HEPARIN NA (PORCINE) 5,000 UNITS/ML 1ML VIAL IVPUSH PRN (17:45)
[2017-03-10] MEDS ORDERED: HEPARIN INFUSION - 500 ML IVPB ONE (18:03)
[2017-03-10] MEDS: HEPARIN - 25,000 UNIT in SODIUM CHLORIDE 495 ML IV SCH (18:06)
[2017-03-10] MEDS ORDERED: SODIUM CHLORIDE 0.9% 1000 ML INFUS.BAG IV ONE (18:59)
[2017-03-10] MEDS ORDERED: ACETAMINOPHEN 325 MG TABLET (FP) PO ONE (18:59)
[2017-03-10] MEDS ORDERED: ACETAMINOPHEN 325 MG TABLET (FP) ONE (19:00)
--- NOTE | 2017-03-10 20:27 | HP ---
CHIEF COMPLAINT: Left Leg Swelling PCP: Dr. Omaira De Jesus HISTORY OF PRESENT ILLNESS: This is a 56 y/o man with a past medical history of HTN, recent Triple AAA repair (72hrs ago). Who presents to the ED with LLE edema x 1 day. Patient reports having AAA surgery 3 days ago and is normally an active person- cycling and hiking. Patient reports resuming cycling and hiking 4.5mi doing over 10, 000 steps daily, he noticed yesterday that his left leg was swollen and reddened. Patient denies calf pain, SOB, CP. Patient denies fever, chills, cough , dizziness, AP, N/V/D, constipation, dysuria ER course was notable for: (1) Doppler of BLE- Occulsive Thrombosis L- common femoral, femoral profunda and popliteal veins in the LLE. No DVT RLE (2) Abdominal CT- Thrombus L-sided inferior vena cava, left common iliac, external iliac, internal iliac, bladder distention 500ml, 5-6mm nonobstructing left renal calculus (3) Na 132 Recent Travel: None PAST MEDICAL HISTORY: HTN PAST SURGICAL HISTORY: Triple AAA Repair (03/06/17) Social History: Smoking: Former, 20 yrs ago Alcohol: Moderately Drugs: Denies Family History: Father: Phlebitis Allergies No Known Allergies Allergy (Verified 03/10/17 11:46) HOME MEDICATIONS: Home Medications Medication Instructions Recorded Lisinopril [Prinivil] 10 mg PO HS #60 tablet 01/03/17 Metoprolol Tartrate [Lopressor -] 25 mg PO BID #60 tablet 01/03/17 REVIEW OF SYSTEMS CONSTITUTIONAL: Absent: fever, chills, diaphoresis, generalized weakness, malaise, loss of appetite, weight change HEENT: Absent: rhinorrhea, nasal congestion, throat pain, throat swelling, difficulty swallowing, mouth swelling, ear pain, eye pain, visual changes CARDIOVASCULAR: Absent: chest pain, syncope, palpitations, irregular heart rate, lightheadedness , peripheral edema RESPIRATORY: Absent: cough, shortness of breath, dyspnea with exertion, orthopnea, wheezing, stridor, hemoptysis GASTROINTESTINAL: Absent: abdominal pain, abdominal distension, nausea, vomiting, diarrhea, constipation, melena, hematochezia GENITOURINARY: Absent: dysuria, frequency, urgency, hesitancy, hematuria, flank pain, genital pain MUSCULOSKELETAL: left leg swelling Absent: myalgia, arthralgia, joint swelling, back pain, neck pain SKIN: Absent: rash, itching, pallor HEMATOLOGIC/IMMUNOLOGIC: Absent: easy bleeding, easy bruising, lymphadenopathy, frequent infections ENDOCRINE: Absent: unexplained weight gain, unexplained weight loss, heat intolerance, cold intolerance NEUROLOGIC: Absent: headache, focal weakness or paresthesias, dizziness, unsteady gait, seizure, mental status changes, bladder or bowel incontinence PSYCHIATRIC: Absent: anxiety, depression, suicidal or homicidal ideation, hallucinations. PHYSICAL EXAMINATION Vital Signs - 24 hr 03/10/17 03/10/17 16:49 19:31 Temperature 98.2 F 98.6 F Pulse Rate [ 68 81 Left Apical] Respiratory 16 17 Rate Blood Pressure 107/74 118/71 [Right Arm] O2 Sat by Pulse 99 98 Oximetry (%) GENERAL: Awake, alert, and fully oriented, in no acute distress. HEAD: Normal with no signs of trauma. EYES: Pupils equal, round and reactive to light, extraocular movements intact, sclera anicteric, conjunctiva clear. No lid lag. EARS, NOSE, THROAT: Ears normal, nares patent, oropharynx clear without exudates. Moist mucous membranes. NECK: Normal range of motion, supple without lymphadenopathy, JVD, or masses. LUNGS: Breath sounds equal, clear to auscultation bilaterally. No wheezes, and no crackles. No accessory muscle use. HEART: Regular rate and rhythm, normal S1 and S2 without murmur, rub or gallop. ABDOMEN: Soft, nontender, not distended, normoactive bowel sounds, no guarding, no rebound, no masses. No hepatomegaly or splenomegaly. MUSCULOSKELETAL: Normal range of motion at all joints. No bony deformities or tenderness. No CVA tenderness. UPPER EXTREMITIES: 2+ pulses, warm, well-perfused. No cyanosis. No clubbing. No peripheral edema. LOWER EXTREMITIES: 2+ pulses, warm, well-perfused. No calf tenderness. LLE +4 peripheral edema. NEUROLOGICAL: Cranial nerves II-XII intact. Normal speech. Normal gait. PSYCHIATRIC: Cooperative. Good eye contact. Appropriate mood and affect. SKIN: Warm, dry, normal turgor, no rashes or lesions noted, normal capillary refill. LLE erythematous ASSESSMENT/PLAN: This is a 56 y/o man with a PMHx of: HTN, Triple AAA Repair (3 days ago), Femoral Iliac Bypass. Admitted to Telemetry DVT L-Leg for further evaluation of their emergent condition. Plan: 1. DVT of L- Leg - LLE grossly edematous and erythematous compared to non affected leg - Wells Score 3 - Doppler study confirmed Occlusive thrombosis to L-common femoral, profunda femoral, and popliteal veins. - Heparin Drip with bolus started in ED, will continue - Series CBC, PTT/INRs - Obtained stool guaiac in ED- negative - Monitor vitals 2. Hypertension - Well controlled - Monitor BP - Continue Lisinopril, Lopressor with parameters (note adjustment in dose, verified with patient) - Monitor renal function 3. FEN - Replete lytes prn - Low Na Diet 4. DVT Prophylaxis - OOB - Continue Heparin Drip Code Status: Full Code Dispo: Requires Inpatient Care Problem List - Problem (1) DVT (deep venous thrombosis) Code(s): I82.409 - ACUTE EMBOLISM AND THOMBOS UNSP DEEP VN UNSP LOWER EXTREMITY (2) AAA (abdominal aortic aneurysm) without rupture Code(s): I71.4 - ABDOMINAL AORTIC ANEURYSM, WITHOUT RUPTURE (3) HTN (hypertension) Code(s): I10 - ESSENTIAL (PRIMARY) HYPERTENSION Visit type - Emergency Visit Emergency Visit: Yes ED Registration Date: 03/10/17 Care time: The patient presented to the Emergency Department on the above date and was hospitalized for further evaluation of their emergent condition. - New Patient This patient is new to me today: Yes Date on this admission: 03/10/17 - Critical Care Critical Care patient: No
[2017-03-10] MEDS ORDERED: METOPROLOL TARTRATE 25 MG TABLET (FP) PO SCH ×2 (22:00→23:22)
[2017-03-10] MEDS: LISINOPRIL 10 MG TABLET (FP) PO SCH (23:57)
[2017-03-11 07:38] LABS: ANION GAP 11 (8-16); CALCIUM 8.7 mg/dL (8.5-10.1); CO2 23 mmol/L (21-32)
[2017-03-11 07:41] LABS: CREATININE 0.7 mg/dL (0.7-1.3); GLUCOSE,RANDOM 92 mg/dL (74-106)
[2017-03-11] MEDS: METOPROLOL TARTRATE 25 MG TABLET (FP) PO SCH ×2 (09:11→22:06)
[2017-03-11] MEDS: HEPARIN NA (PORCINE) 5,000 UNITS/ML 1ML VIAL IVPUSH PRN ×2 (09:11→23:23)
[2017-03-11] MEDS ORDERED: LISINOPRIL 20 MG TABLET (FP) PO SCH (10:00)
--- NOTE | 2017-03-11 10:04 | CONSULT ---
Consult - History of Present Illness History of Present Illness: 56 year old man 2.5 months s/p open repair of a large abdominal aortic and bilateral iliac aneurysms with aorta to right iliac and left femoral bypass. At surgery the left renal vein was divided to gain access to the aneurysm neck. 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 Post-op course was unremarkable and he has returned to his normal activities including strenuous exercise. Two days a go, following a 4 mile hike, he noted swelling and pain of the left leg. He was sent by his PMD for an ultrasound which showed thrombosis of the left popliteal, femoral and common femoral veins. A CTA showed thrombosis of the left iliac and left IVC. There was no clot in the right sided cava. 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 tissue disorder - genetic testing pending - Past Surgical History Past Surgical History: Yes: AAA Repair - Alcohol/Substance Use Hx Alcohol Use: Yes (12/23 last drink-6 drinks) - Smoking History Smoking history: Never smoked Have you smoked in the past 12 months: No - Social History Usual Living Arrangement: Alone Home Medications - Allergies Allergies/Adverse Reactions: Allergies Allergy/AdvReac Type Severity Reaction Status Date / Time No Known Allergies Allergy Verified 03/10/17 11:46 - Home Medications Home Medications: Ambulatory Orders Lisinopril [Prinivil] 40 mg PO DAILY #60 tablet 01/03/17 Metoprolol Tartrate [Lopressor -] 25 mg PO BID #60 tablet 01/03/17 Family Disease History - Family Disease History Family Disease History: Heart Disease: Father Physical Exam Vital Signs: Vital Signs Temperature 98.7 F 03/11/17 06:00 Pulse Rate 76 03/11/17 06:00 Respiratory Rate 20 03/11/17 06:00 Blood Pressure 106/63 03/11/17 06:00 O2 Sat by Pulse Oximetry (%) 98 03/11/17 03:00 Constitutional: Yes: No Distress Eyes: Yes: Conjunctiva Clear HENT: Yes: WNL Neck: Yes: Supple Cardiovascular: Yes: Regular Rate and Rhythm Respiratory: Yes: Regular Gastrointestinal: Yes: Soft, Other (Midline scar healing well, no hernia) Edema: Yes Edema: LLE: 3+ (non-pitting) Peripheral Pulses WNL: Yes Labs: CBC, BMP 03/11/17 05:19 Problem List - Problems (1) DVT (deep venous thrombosis) Assessment/Plan: Extensive DVT of left sided cava extending down to popliteal vein of left leg. 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 There is no evidence for phlegmasia. Treatment with systemic anticoagulation has started. Future options include: 1. Conservative management with leg elevation and compression hose. There is significant risk of life-long leg swelling and post-thrombotic syndrome with leg pain and ulceration. 2. Thrombolysis of the clot and placement of venous stents in areas of compression. If successful, this would return venous flow and lower risk of late sequelae. I have explained these options and recommended thrombolysis and stenting to try to help him return to his normal activities with less risk of late disability. He is unsure and is requesting a second opinion. I have asked Dr. Jiménez to consult. Code(s): I82.409 - ACUTE EMBOLISM AND THOMBOS UNSP DEEP VN UNSP LOWER EXTREMITY Qualifiers: DVT location: lower extremity Affected thrombotic vein of extremity: iliac Chronicity: acute Laterality: left Qualified Code(s): I82.422 - Acute embolism and thrombosis of left iliac vein; I82.422 - Acute embolism and thrombosis of left iliac vein; I82.422 - Acute embolism and thrombosis of left iliac vein; I82.422 - Acute embolism and thrombosis of left iliac vein
--- NOTE | 2017-03-11 15:35 | PN ---
Progress Note, Physician Chief Complaint: Mr Ng walking around, saying his L leg is very swollen and painful but not debilitating. Denies cp, sob, n/v - Current Medication List Current Medications: Active Medications Heparin Sodium (Porcine) (Heparin -) 1,000 unit IVPUSH PRN PRN PRN Reason: Heparin Last Admin: 03/11/17 09:11 Dose: 1,000 unit Heparin Sodium (Porcine) (Heparin -) 5,000 unit IVPUSH PRN PRN PRN Reason: Heparin Last Admin: 03/11/17 01:27 Dose: 5,000 unit Heparin Sodium (Porcine) 25, (000 unit/ Sodium Chloride) 500 mls @ 20 mls/hr IV TITR D[facility]IUS; 1,000 UNIT/HR PRN Reason: Protocol Last Titration: 03/11/17 09:11 Dose: 1,250 unit/hr Lisinopril (Prinivil) 10 mg PO HS DARIUS Last Admin: 03/10/17 23:57 Dose: 10 mg Metoprolol Tartrate (Lopressor -) 12.5 mg PO BID D[facility]US Last Admin: 03/11/17 09:11 Dose: 12.5 mg - Objective Vital Signs: Vital Signs Temperature 37.1 C 03/11/17 15:23 Pulse Rate 71 03/11/17 15:23 Respiratory Rate 20 03/11/17 15:23 Blood Pressure 123/79 03/11/17 15:23 O2 Sat by Pulse Oximetry (%) 99 03/11/17 10:00 Constitutional: Yes: Well Nourished, No Distress, Calm Cardiovascular: Yes: Regular Rate and Rhythm. No: Gallop, Murmur, Rub Respiratory: Yes: Regular, CTA Bilaterally. No: Rales, Rhonchi, Wheezes Gastrointestinal: Yes: Normal Bowel Sounds, Soft. No: Distention, Tenderness Extremities: Yes: WNL Edema: No Labs: CBC, BMP 03/11/17 05:19 INR, PTT INR 1.13 (0.82-1.09) 03/10/17 13:42 Problem List - Problems (1) DVT (deep venous thrombosis) Assessment/Plan: -appreciate Dr Duncan's assistance -recommended thrombolysis of clot considering size -d/w patient and also agreed with recommendation -patient reluctant to undergo thrombolysis -continue heparin gtt -Dr Duncan following, planning to change to oral anticoagulant tomorrow -at this point patient leaning towards discharge on oral anticoagulant and outpatient follow up Code(s): I82.409 - ACUTE EMBOLISM AND THOMBOS UNSP DEEP VN UNSP LOWER EXTREMITY Qualifiers: DVT location: lower extremity Affected thrombotic vein of extremity: iliac Chronicity: acute Laterality: left Qualified Code(s): I82.422 - Acute embolism and thrombosis of left iliac vein; I82.422 - Acute embolism and thrombosis of left iliac vein; I82.422 - Acute embolism and thrombosis of left iliac vein; I82.422 - Acute embolism and thrombosis of left iliac vein (2) AAA (abdominal aortic aneurysm) without rupture Assessment/Plan: -s/p repair Code(s): I71.4 - ABDOMINAL AORTIC ANEURYSM, WITHOUT RUPTURE (3) HTN (hypertension) Assessment/Plan: -continue lisinopril and metoprolol Code(s): I10 - ESSENTIAL (PRIMARY) HYPERTENSION Assessment/Plan Dispo -possible discharge tomorrow on oral anticoagulant
[2017-03-11] MEDS: HEPARIN - 25,000 UNIT in SODIUM CHLORIDE 495 ML IV SCH (18:28)
[2017-03-11] MEDS: LISINOPRIL 10 MG TABLET (FP) PO SCH (22:06)
[2017-03-12 07:26] LABS: ANION GAP 6 (8-16); CALCIUM 8.5 mg/dL (8.5-10.1); CO2 28 mmol/L (21-32); CREATININE 0.8 mg/dL (0.7-1.3); GLUCOSE,RANDOM 94 mg/dL (74-106); MAGNESIUM 2.2 mg/dL (1.8-2.4); PHOSPHOROUS 3.5 mg/dL (2.5-4.9)
[2017-03-12 08:15] LABS: MCH 30.7 pg (25.7-33.7); MCHC 33.3 g/dl (32.0-35.9); MEAN CELL VOLUME 92.4 fl (80-96); MEAN PLT VOLUME 8.1 fl (7.5-11.1); PLATELET COUNT 234 K/MM3 (134-434); RDW 15.2 % (11.9-15.9); WHITE BLOOD COUNT 7.8 K/mm3 (4.0-10.0)
[2017-03-12] MEDS: METOPROLOL TARTRATE 25 MG TABLET (FP) PO SCH ×2 (09:21→21:32)
--- NOTE | 2017-03-12 12:13 | PN ---
Progress Note (short form) - Note Progress Note: VSS Left leg swelling increased despite elevation. Denies toe pain. Discussed risk of phlegmasia in the setting of severe ilio-femoral occlusion with patient. He now agrees to proceed with thrombolysis. I have arranged to have EKOS pump and catheter delivered for tomorrow morning procedure. Risks of thrombolysis including bleeding, stroke, pulmonary embolism discussed. Problem List - Problems (1) DVT (deep venous thrombosis) Code(s): I82.409 - ACUTE EMBOLISM AND THOMBOS UNSP DEEP VN UNSP LOWER EXTREMITY Qualifiers: DVT location: lower extremity Affected thrombotic vein of extremity: iliac Chronicity: acute Laterality: left Qualified Code(s): I82.422 - Acute embolism and thrombosis of left iliac vein; I82.422 - Acute embolism and thrombosis of left iliac vein; I82.422 - Acute embolism and thrombosis of left iliac vein; I82.422 - Acute embolism and thrombosis of left iliac vein
[2017-03-12] MEDS: HEPARIN NA (PORCINE) 5,000 UNITS/ML 1ML VIAL IVPUSH PRN (17:00)
[2017-03-12] MEDS: HEPARIN - 25,000 UNIT in SODIUM CHLORIDE 495 ML IV SCH (17:00)
--- NOTE | 2017-03-12 17:05 | PN ---
Progress Note (short form) - Note Progress Note: Patient seen and examined. Increased leg swelling. Denies chest pain, shortness of breath, palpitation or dizziness. Patient scheduled for thrombolysis tomorrow. - Current Medication List Current Medications: Active Medications Heparin Sodium (Porcine) (Heparin -) 1,000 unit IVPUSH PRN PRN PRN Reason: Heparin Last Admin: 03/11/17 09:11 Dose: 1,000 unit Heparin Sodium (Porcine) (Heparin -) 5,000 unit IVPUSH PRN PRN PRN Reason: Heparin Last Admin: 03/11/17 01:27 Dose: 5,000 unit Heparin Sodium (Porcine) 25, (000 unit/ Sodium Chloride) 500 mls @ 20 mls/hr IV TITR DARIUS; 1,000 UNIT/HR PRN Reason: Protocol Last Titration: 03/11/17 09:11 Dose: 1,250 unit/hr Lisinopril (Prinivil) 10 mg PO HS DARIUS Last Admin: 03/10/17 23:57 Dose: 10 mg Metoprolol Tartrate (Lopressor -) 12.5 mg PO BID D[facility]US Last Admin: 03/11/17 09:11 Dose: 12.5 mg - Objective Vital Signs: Vital Signs Period Temp Pulse Resp BP Sys/Mccormick Pulse Ox Last 24 Hr 98.1 F-99.1 F 63-75 18-20 110-131/68-88 95-100 Constitutional: Yes: Well Nourished, No Distress, Calm Cardiovascular: Yes: Regular Rate and Rhythm. No: Gallop, Murmur, Rub Respiratory: Yes: Regular, CTA Bilaterally. No: Rales, Rhonchi, Wheezes Gastrointestinal: Yes: Normal Bowel Sounds, Soft. No: Distention, Tenderness Extremities: Yes: WNL Edema: No Labs: CBC, BMP 03/12/17 05:10 03/12/17 05:10 Problem List - Problems (1) DVT (deep venous thrombosis) Assessment/Plan: - Increase left lower extremity swelling. - Now agreed for thrombolysis. - continue heparin gtt for the time being. - Dr Duncan follow up appreciated. Code(s): I82.409 - ACUTE EMBOLISM AND THOMBOS UNSP DEEP VN UNSP LOWER EXTREMITY Qualifiers: DVT location: lower extremity Affected thrombotic vein of extremity: iliac Chronicity: acute Laterality: left Qualified Code(s): I82.422 - Acute embolism and thrombosis of left iliac vein; I82.422 - Acute embolism and thrombosis of left iliac vein; I82.422 - Acute embolism and thrombosis of left iliac vein; I82.422 - Acute embolism and thrombosis of left iliac vein (2) AAA (abdominal aortic aneurysm) without rupture Assessment/Plan: -s/p repair Code(s): I71.4 - ABDOMINAL AORTIC ANEURYSM, WITHOUT RUPTURE (3) HTN (hypertension) Assessment/Plan: -continue lisinopril and metoprolol Code(s): I10 - ESSENTIAL (PRIMARY) HYPERTENSION
[2017-03-12] MEDS: LISINOPRIL 10 MG TABLET (FP) PO SCH (21:32)
[2017-03-13] MEDS: HEPARIN - 25,000 UNIT in SODIUM CHLORIDE 495 ML IV SCH (02:40)
[2017-03-13 07:42] LABS: MCH 30.4 pg (25.7-33.7); MCHC 33.3 g/dl (32.0-35.9); MEAN CELL VOLUME 91.4 fl (80-96); MEAN PLT VOLUME 7.6 fl (7.5-11.1); PLATELET COUNT 276 K/MM3 (134-434); RDW 15.3 % (11.9-15.9); WHITE BLOOD COUNT 7.6 K/mm3 (4.0-10.0)
[2017-03-13 08:17] LABS: ALBUMIN 2.8 g/dl (3.4-5.0); ALK PHOS 74 U/L (45-117); ANION GAP 6 (8-16); BILIRUBIN,TOTAL 0.4 mg/dL (0.2-1.0); CALCIUM 8.8 mg/dL (8.5-10.1); CO2 27 mmol/L (21-32); CREATININE 0.6 mg/dL (0.7-1.3); GLUCOSE,RANDOM 87 mg/dL (74-106); SGOT/AST 12 U/L (15-37); SGPT/ALT 18 U/L (12-78)
[2017-03-13] MEDS ORDERED: MIDAZOLAM HCL 2 MG/2 ML SINGLE DOSE VIAL ONE ×2 (08:58→10:33)
[2017-03-13] MEDS ORDERED: PROPOFOL 20 ML ONE ×2 (08:58→10:17)
[2017-03-13] MEDS ORDERED: LIDOCAINE HCL/PF 2% SDV 5ML VIAL ONE (09:01)
[2017-03-13] MEDS ORDERED: ALTEPLASE 50 MG VIAL IVPB ONE (09:13)
[2017-03-13] MEDS: METOPROLOL TARTRATE 25 MG TABLET (FP) PO SCH ×2 (09:32→22:01)
[2017-03-13] MEDS ORDERED: HEPARIN NA (PORCINE) 5,000 UNITS/ML 1ML VIAL ONE ×2 (09:54→11:15)
[2017-03-13] MEDS ORDERED: WATER CVP ONE (10:00)
[2017-03-13] MEDS ORDERED: ALTEPLASE CVP ONE (10:00)
[2017-03-13] MEDS ORDERED: DEXTROSE 5% CVP ONE (10:00)
[2017-03-13] MEDS ORDERED: ceFAZolin SODIUM 1 GM VIAL IVPB ONE (10:14)
[2017-03-13] MEDS ORDERED: LIDOCAINE HCL 1%, 10 MG/ML (20ML VIAL) INF ONE (10:15)
[2017-03-13] MEDS ORDERED: ceFAZolin SODIUM 1 GM VIAL ONE (10:15)
[2017-03-13 10:51] LABS: PLATELET ESTIMATE ADEQUATE (NORMAL); TOTAL CELLS COUNTED 100
[2017-03-13 10:52] LABS: METAMYELOCYTE 3 % (0-2); MYELOCYTE 2 % (0-2)
[2017-03-13] MEDS: SODIUM CHLORIDE 1,000 ML IV SCH ×2 (11:40→19:14)
[2017-03-13] MEDS ORDERED: ONDANSETRON 4 MG/2 ML VIAL IVPUSH PRN ×2 (11:47→12:37)
[2017-03-13] MEDS ORDERED: LACTATED RINGERS SOLUTION 1,000 ML IV SCH ×2 (12:00→17:30)
--- NOTE | 2017-03-13 12:00 | OP ---
Operative Note - Note: Operative Date: 03/13/17 Pre-Operative Diagnosis: DVT left popliteal, femoral, iliac and IVC Operation: Placement IVC filter right vena cava. Placement of EKOS thrombolysis catheter left popliteal vein. Venpogram popliteal vein and IVC Findings: Thrombosis of left femoral, popliteal veins. Patent right IVC. Implants: EKOS catheter in left IVC to mid femoral vein. Post-Operative Diagnosis: Same as Pre-op Surgeon: Ruddy Duncan Anesthesiologist/PHYSICAL THERAPIST ASSISTANT: Ricky Lee Anesthesia: Fractional
[2017-03-13] MEDS ORDERED: HYDROmorphone HCL CARPU-JECT 1 MG/1 ML DISP.SYRIN IVPB PRN (12:10)
[2017-03-13] MEDS ORDERED: HEPARIN - 25,000 UNIT in SODIUM CHLORIDE 495 ML IV SCH (12:37)
[2017-03-13] MEDS ORDERED: HEPARIN NA (PORCINE) 5,000 UNITS/ML 1ML VIAL IVPUSH PRN ×2 (12:37)
[2017-03-13] MEDS ORDERED: HEPARIN INFUSION - 500 ML IVPB ONE (12:41)
[2017-03-13 13:01] LABS: MCH 29.9 pg (25.7-33.7); MCHC 32.7 g/dl (32.0-35.9); MEAN CELL VOLUME 91.6 fl (80-96); MEAN PLT VOLUME 7.5 fl (7.5-11.1); PLATELET COUNT 281 K/MM3 (134-434); RDW 15.1 % (11.9-15.9); WHITE BLOOD COUNT 7.7 K/mm3 (4.0-10.0)
[2017-03-13 13:13] LABS: INR 1.09 (0.82-1.09); PROTHROMBIN TIME (PATIENT) 12.3 SEC (9.98-11.88)
[2017-03-13 14:13] LABS: ACTIVATED PTT 28.9 SECONDS (26.9-34.4)
--- NOTE | 2017-03-13 16:39 | PN ---
Progress Note (short form) - Note Progress Note: Patient seen and examined. S/P Thrombolysis Denies chest pain, shortness of breath, palpitation or dizziness. Afebrile. Current Medications Heparin Sodium (Porcine) (Heparin -) 1,000 unit IVPUSH PRN PRN PRN Reason: Heparin Heparin Sodium (Porcine) (Heparin -) 5,000 unit IVPUSH PRN PRN PRN Reason: Heparin Hydromorphone HCl (Dilaudid Injection -) 1 mg IVPB Q3H PRN PRN Reason: PAIN LEVEL 1-5 Sodium Chloride (Normal Saline -) 1,000 mls @ 35 mls/hr IV ASDIR [facility] Last Admin: 03/13/17 11:40 Dose: 140 mls Alteplase, Recombinant 12 mg/ (Dextrose) 250 mls @ 20.8 mls/hr NR Q12H [facility] Stop: 03/14/17 22:59 Heparin Sodium (Porcine) 25, (000 unit/ Sodium Chloride) 500 mls @ 10 mls/hr IV TITR DARIUS; 500 UNIT/HR PRN Reason: Protocol Last Admin: 03/13/17 11:40 Dose: 40 mls Lisinopril (Prinivil) 10 mg PO HS D[facility]US Metoprolol Tartrate (Lopressor -) 12.5 mg PO BID [facility] Ondansetron HCl (Zofran Injection) 4 mg IVPUSH Q6H PRN PRN Reason: NAUSEA AND/OR VOMITING Stop: 03/13/17 17:48 - Objective Vital Signs: Vital Signs Period Temp Pulse Resp BP Sys/Mccormick Pulse Ox Last 24 Hr 97.6 F-98.7 F 60-74 14-20 100-125/65-81 96-100 Constitutional: Yes: Well Nourished, No Distress, Calm Cardiovascular: Yes: Regular Rate and Rhythm. No: Gallop, Murmur, Rub Respiratory: Yes: Regular, CTA Bilaterally. No: Rales, Rhonchi, Wheezes Gastrointestinal: Yes: Normal Bowel Sounds, Soft. No: Distention, Tenderness Extremities: Yes: WNL Edema: No Labs: CBC, BMP 03/13/17 12:15 03/13/17 05:10 Problem List - Problems (1) DVT (deep venous thrombosis) Assessment/Plan: - S/P Thrombolysis. - Dr Duncan follow up appreciated. - Monitor closely in ICU Code(s): I82.409 - ACUTE EMBOLISM AND THOMBOS UNSP DEEP VN UNSP LOWER EXTREMITY Qualifiers: DVT location: lower extremity Affected thrombotic vein of extremity: iliac Chronicity: acute Laterality: left Qualified Code(s): I82.422 - Acute embolism and thrombosis of left iliac vein; I82.422 - Acute embolism and thrombosis of left iliac vein; I82.422 - Acute embolism and thrombosis of left iliac vein; I82.422 - Acute embolism and thrombosis of left iliac vein (2) AAA (abdominal aortic aneurysm) without rupture Assessment/Plan: -s/p repair Code(s): I71.4 - ABDOMINAL AORTIC ANEURYSM, WITHOUT RUPTURE (3) HTN (hypertension) Assessment/Plan: -continue lisinopril and metoprolol Code(s): I10 - ESSENTIAL (PRIMARY) HYPERTENSION
[2017-03-13 19:19] LABS: MCH 30.6 pg (25.7-33.7); MCHC 33.2 g/dl (32.0-35.9); MEAN CELL VOLUME 92.1 fl (80-96); MEAN PLT VOLUME 7.7 fl (7.5-11.1); PLATELET COUNT 265 K/MM3 (134-434); RDW 15.1 % (11.9-15.9); WHITE BLOOD COUNT 9.4 K/mm3 (4.0-10.0)
[2017-03-13 19:30] LABS: INR 1.33 (0.82-1.09)
--- NOTE | 2017-03-13 19:31 | CONSULT ---
Consult Consult Specialty:: PULM/CCM Referred by:: Dr. Miguel Angel Ko Reason for Consultation:: Massive DVT - History of Present Illness Chief Complaint: LLE swelling History of Present Illness: Mr. Ng is a 56 y/o man, pt of Dr. Ramesh, w/ HTN who presents to the ED on 03/10 c/o LLE swelling. Of note pt is POD# 75 s/p AAA repair (12/26/16). Pt reports post-op biking and hiking w/o issue but one day [employer] developed LLE swelling. Pt denied any calf pain, SOB, CP, or palpitations. CTA Abd-Pelvis shows massive thrombosis of L femoral & popliteal veins. Pt is now immediate s/ p IVC placement, thrombolysis, & EKOS thrombolysis catheter placement into L femoral vein w/ Dr. Duncan. 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 tissue disorder - genetic testing pending - Past Surgical History Past Surgical History: Yes: AAA Repair ((12/26/2016)) - Alcohol/Substance Use Hx Alcohol Use: Yes (12/23 last drink-6 drinks) - Smoking History Smoking history: Former smoker Have you smoked in the past 12 months: No - Social History Usual Living Arrangement: Alone ADL: Independent Home Medications - Allergies Allergies/Adverse Reactions: Allergies Allergy/AdvReac Type Severity Reaction Status Date / Time No Known Allergies Allergy Verified 03/10/17 11:46 - Home Medications Home Medications: Ambulatory Orders Lisinopril [Prinivil] 40 mg PO DAILY #60 tablet 01/03/17 Metoprolol Tartrate [Lopressor -] 25 mg PO BID #60 tablet 01/03/17 Family Disease History - Family Disease History Family Disease History: Other: Father (phlebitis) Review of Systems - Review of Systems Constitutional: reports: No Symptoms Eyes: reports: No Symptoms HENT: reports: No Symptoms Neck: reports: No Symptoms Cardiovascular: reports: No Symptoms Respiratory: reports: No Symptoms Gastrointestinal: reports: No Symptoms Genitourinary: reports: No Symptoms Breasts: reports: No Symptoms Reported Musculoskeletal: reports: Extremity Pain Neurological: reports: No Symptoms Endocrine: reports: No Symptoms Hematology/Lymphatic: reports: No Symptoms Psychiatric: reports: No Symptoms Pain Intensity: 6 Physical Exam Vital Signs: Vital Signs Temperature 99.2 F 03/13/17 16:00 Pulse Rate 72 03/13/17 18:02 Respiratory Rate 18 03/13/17 18:03 Blood Pressure 130/75 03/13/17 18:02 O2 Sat by Pulse Oximetry (%) 100 03/13/17 18:03 Constitutional: Yes: Well Nourished, No Distress, Calm Eyes: Yes: WNL HENT: Yes: WNL, Atraumatic, Normocephalic Neck: Yes: WNL, Supple, Trachea Midline, Tenderness Cardiovascular: Yes: WNL, Regular Rate and Rhythm Respiratory: Yes: WNL, Regular, CTA Bilaterally. No: Rales, Rhonchi, SOB, SOB on Exertion, Stridor, Tachypnea Gastrointestinal: Yes: WNL, Normal Bowel Sounds, Soft ...Rectal Exam: Yes: Deferred Renal/: Yes: WNL Breast(s): Yes: WNL Musculoskeletal: Yes: WNL Extremities: Yes: Other (Gross LLE edema, now w/ EKOS thrombolysis catheter placement into L femoral vein.) Edema: Yes Edema: LLE: 4+ Wound/Incision: Yes: Clean/Dry, Well Approximated Neurological: Yes: WNL, Alert, Oriented ...Motor Strength: WNL Psychiatric: Yes: WNL Labs: CBC, BMP 03/13/17 18:44 03/13/17 05:10 Imaging - Results Cat Scan: Report Reviewed (03/10 CTA Abd 7 Pelvis: DVT left popliteal, femoral, iliac and IVC.) Ultrasound: Report Reviewed (03/10/17 15:38 Bilateral Lower extremity duplex IMPRESSION: 1. Extensive, occlusive thrombosis of the left femoropopliteal veins, extending into the greater saphenous vein, as detailed above. 2. No evidence of deep vein thrombosis in the right lower extremity, as above. These findings were discussed with Dr. Rodriguez at approximately 15:30 on 2016. Reported By: Boby Solano MD 03/10/17 1470) Problem List - Problems (1) HTN (hypertension) Code(s): I10 - ESSENTIAL (PRIMARY) HYPERTENSION (2) AAA (abdominal aortic aneurysm) without rupture Code(s): I71.4 - ABDOMINAL AORTIC ANEURYSM, WITHOUT RUPTURE (3) DVT (deep venous thrombosis) Code(s): I82.409 - ACUTE EMBOLISM AND THOMBOS UNSP DEEP VN UNSP LOWER EXTREMITY Qualifiers: DVT location: lower extremity Affected thrombotic vein of extremity: iliac Chronicity: acute Laterality: left Qualified Code(s): I82.422 - Acute embolism and thrombosis of left iliac vein; I82.422 - Acute embolism and thrombosis of left iliac vein; I82.422 - Acute embolism and thrombosis of left iliac vein; I82.422 - Acute embolism and thrombosis of left iliac vein Assessment/Plan ASSESS: This is a 56 y/o man w/ HTN & Hx/o a recent AAA repair (12/26/16) admitted now w/ a massive thrombosis of L femoral & popliteal veins, now s/p thrombolysis w/ Dr. Duncan & placement of EKOS catheter in L femoral vein. PLAN: -HOB > 30 -NPO -IS -Elevate L LE -Monitor EKOS thrombolysis catheter -Maintain Heparin gtt -B/L Pedal pulse checks q1Hr -Aggressive hydration -Cont BB -D/c TATIANA-I while in ICU -Monitor UOP -Trend BUN/Cr -Back to OR tomorrow afternoon for confirmation +/- revision. -PPI Thank you for this interesting Consult. JORDAN HANEY-BC [facility] ICU [id number] PULM / CCM
[2017-03-13 19:32] LABS: ACTIVATED PTT 44.6 SECONDS (26.9-34.4)
[2017-03-13] MEDS ORDERED: LISINOPRIL 10 MG TABLET (FP) PO SCH (22:00)
[2017-03-13] MEDS: ALTEPLASE NR SCH (23:15)
[2017-03-13] MEDS: WATER NR SCH (23:15)
[2017-03-13] MEDS: DEXTROSE 5% NR SCH (23:15)
[2017-03-14 00:48] LABS: FIBRINOGEN < 100.0 mg/dL (238-498)
[2017-03-14 00:50] LABS: ACTIVATED PTT 38.1 SECONDS (26.9-34.4)
[2017-03-14] MEDS: WATER NR SCH ×2 (01:15→12:17)
[2017-03-14] MEDS: DEXTROSE 5% NR SCH ×2 (01:15→12:17)
[2017-03-14] MEDS: ALTEPLASE NR SCH ×2 (01:15→12:17)
[2017-03-14 06:22] LABS: BASOPHIL 0.8 % (0-2.0); EOSINOPHIL 1.8 % (0-4.5); MCH 31.2 pg (25.7-33.7); MCHC 34.3 g/dl (32.0-35.9); MEAN CELL VOLUME 91.2 fl (80-96); MEAN PLT VOLUME 7.3 fl (7.5-11.1); NEUTROPHILS 69.8 % (42.8-82.8); PLATELET COUNT 224 K/MM3 (134-434); RDW 14.8 % (11.9-15.9)
[2017-03-14 06:47] LABS: ALBUMIN 2.5 g/dl (3.4-5.0); ANION GAP 8 (8-16); CALCIUM 8.2 mg/dL (8.5-10.1); CO2 27 mmol/L (21-32); CREATININE 0.7 mg/dL (0.7-1.3); GLUCOSE,RANDOM 97 mg/dL (74-106); SGOT/AST 13 U/L (15-37); SGPT/ALT 15 U/L (12-78)
[2017-03-14 06:49] LABS: ALK PHOS 78 U/L (45-117); BILIRUBIN,TOTAL 0.7 mg/dL (0.2-1.0); TOT PROT 5.9 g/dl (6.4-8.2)
--- NOTE | 2017-03-14 08:15 | PN ---
Progress Note (short form) - Note Progress Note: No complaints VSS Tm 101 last evening, afebrile now Abd soft Left leg softer, no tenderness. Urine muddy colored. Labs Hgb 10 Fibrinogen < 100 Imp: On TPA drip, now at 0.5 mg/hr due to falling fibrinogen Urine color may be due to hemoglobinuria from lysed blood cells. Plan: Continue drip at 0.5 mg/hr Check UA Return to OR for thrombectomy and IVUS and stent placement. Problem List - Problems (1) DVT (deep venous thrombosis) Code(s): I82.409 - ACUTE EMBOLISM AND THOMBOS UNSP DEEP VN UNSP LOWER EXTREMITY Qualifiers: DVT location: lower extremity Affected thrombotic vein of extremity: iliac Chronicity: acute Laterality: left Qualified Code(s): I82.422 - Acute embolism and thrombosis of left iliac vein; I82.422 - Acute embolism and thrombosis of left iliac vein; I82.422 - Acute embolism and thrombosis of left iliac vein; I82.422 - Acute embolism and thrombosis of left iliac vein
--- NOTE | 2017-03-14 08:17 | PN ---
Progress Note (short form) - Note Progress Note: POD #1 - s/p IVC filter placement/thrombolysis under MAC. Pt. doing well, resting comfortably in bed. VSS. No complaints. No apparent anesthetic complications noted. Pt. to come back to OR later today for further surgical intervention.
[2017-03-14] MEDS: METOPROLOL TARTRATE 25 MG TABLET (FP) PO SCH ×2 (09:09→22:32)
[2017-03-14 10:12] LABS: URINE APPEARANCE CLOUDY; URINE BILIRUBIN NEGATIVE (NEGATIVE); URINE BLOOD 2+ (NEGATIVE); URINE COLOR RED; URINE GLUCOSE (UA) NEGATIVE (NEGATIVE); URINE KETONE NEGATIVE (NEGATIVE); URINE NITRITE NEGATIVE (NEGATIVE); URINE UROBILINOGEN NEGATIVE mg/dL (0.2-1.0)
[2017-03-14 10:15] LABS: URINE PROTEIN 2+ (NEGATIVE)
[2017-03-14 10:37] LABS: URINE MUCUS FEW; URINE RBC 7706; URINE WBC 14; YEAST MANY
--- NOTE | 2017-03-14 10:58 | PN ---
Progress Note, Physician Chief Complaint: Mr Ng says his left leg is feeling much better after thrombolysis yesterday. Says it feels less swollen and pain has decreased. No cp, sob, n/v. - Current Medication List Current Medications: Active Medications Heparin Sodium (Porcine) (Heparin -) 1,000 unit IVPUSH PRN PRN PRN Reason: Heparin Heparin Sodium (Porcine) (Heparin -) 5,000 unit IVPUSH PRN PRN PRN Reason: Heparin Hydromorphone HCl (Dilaudid Injection -) 1 mg IVPB Q3H PRN PRN Reason: PAIN LEVEL 1-5 Last Admin: 03/14/17 00:27 Dose: 1 mg Sodium Chloride (Normal Saline -) 1,000 mls @ 35 mls/hr IV ASDIR [facility] Last Admin: 03/13/17 19:14 Dose: 35 mls/hr Alteplase, Recombinant 12 mg/ (Dextrose) 250 mls @ 20.8 mls/hr NR Q12H [facility] Stop: 03/14/17 22:59 Last Admin: 03/14/17 01:15 Dose: 10.4 mls/hr Heparin Sodium (Porcine) 25, (000 unit/ Sodium Chloride) 500 mls @ 10 mls/hr IV TITR DARIUS; 500 UNIT/HR PRN Reason: Protocol Last Titration: 03/14/17 01:01 Dose: 500 unit/hr Lactated Ringer's (Lactated Ringers Solution) 1,000 mls @ 40 mls/hr IV ASDIR [facility] Last Admin: 03/13/17 19:15 Dose: 40 mls/hr Metoprolol Tartrate (Lopressor -) 12.5 mg PO BID [facility] Last Admin: 03/14/17 09:09 Dose: 12.5 mg - Objective Vital Signs: Vital Signs Temperature 37.0 C 03/14/17 10:00 Pulse Rate 61 03/14/17 10:03 Respiratory Rate 20 03/14/17 10:00 Blood Pressure 123/73 03/14/17 10:00 O2 Sat by Pulse Oximetry (%) 96 03/14/17 10:03 Constitutional: Yes: Well Nourished, No Distress, Calm Cardiovascular: Yes: Regular Rate and Rhythm. No: Gallop, Murmur, Rub Respiratory: Yes: Regular, CTA Bilaterally. No: Rales, Rhonchi, Wheezes Gastrointestinal: Yes: Normal Bowel Sounds, Soft. No: Distention, Tenderness Extremities: Yes: Erythema (slight, LLE) Edema: Yes Edema: LLE: 2+ Labs: CBC, BMP 03/14/17 06:10 03/14/17 06:10 INR, PTT INR 1.50 (0.82-1.09) H 03/14/17 00:01 Fibrinogen < 100.0 mg/dL (238-498) L* 03/14/17 00:01 Problem List - Problems (1) DVT (deep venous thrombosis) Code(s): I82.409 - ACUTE EMBOLISM AND THOMBOS UNSP DEEP VN UNSP LOWER EXTREMITY Qualifiers: DVT location: lower extremity Affected thrombotic vein of extremity: iliac Chronicity: acute Laterality: left Qualified Code(s): I82.422 - Acute embolism and thrombosis of left iliac vein; I82.422 - Acute embolism and thrombosis of left iliac vein; I82.422 - Acute embolism and thrombosis of left iliac vein; I82.422 - Acute embolism and thrombosis of left iliac vein (2) AAA (abdominal aortic aneurysm) without rupture Code(s): I71.4 - ABDOMINAL AORTIC ANEURYSM, WITHOUT RUPTURE (3) HTN (hypertension) Code(s): I10 - ESSENTIAL (PRIMARY) HYPERTENSION (4) Hematuria Code(s): R31.9 - HEMATURIA, UNSPECIFIED Qualifiers: Hematuria type: gross Qualified Code(s): R31.0 - Gross hematuria; R31.0 - Gross hematuria Assessment/Plan (1) DVT (deep venous thrombosis) Assessment/Plan: -appreciate Dr Duncan's assistance -s/p thrombolysis -planning for return to OR today for stent placement Code(s): I82.409 - ACUTE EMBOLISM AND THOMBOS UNSP DEEP VN UNSP LOWER EXTREMITY Qualifiers: DVT location: lower extremity Affected thrombotic vein of extremity: iliac Chronicity: acute Laterality: left Qualified Code(s): I82.422 - Acute embolism and thrombosis of left iliac vein; I82.422 - Acute embolism and thrombosis of left iliac vein; I82.422 - Acute embolism and thrombosis of left iliac vein; I82.422 - Acute embolism and thrombosis of left iliac vein (2) AAA (abdominal aortic aneurysm) without rupture Assessment/Plan: -s/p repair Code(s): I71.4 - ABDOMINAL AORTIC ANEURYSM, WITHOUT RUPTURE (3) HTN (hypertension) Assessment/Plan: -continue lisinopril and metoprolol Code(s): I10 - ESSENTIAL (PRIMARY) HYPERTENSION (4) Hematuria -secondary to anticoagulation -monitor, expect to resolve with alteplase stopped -consult urology if persistent
--- NOTE | 2017-03-14 12:34 | PN ---
Teaching Attending Note Name of Resident: Terra Hi ATTENDING PHYSICIAN STATEMENT I saw and evaluated the patient. I reviewed the resident's note and discussed the case with the resident. I agree with the resident's findings and plan as documented. SUBJECTIVE: Pt seen and examined in the ICU. Heparin and tPA infusing. Some hematuria in breen, has not had bowel movement yet. No shortness of breath or chest pain. Fever overnight. OBJECTIVE: Last Vital Signs Temp Pulse Resp BP Pulse Ox 98.6 F 61 20 123/73 96 03/14/17 10:00 03/14/17 10:03 03/14/17 10:00 03/14/17 10:00 03/14/17 10:03 Intake & Output 03/12/17 03/13/17 03/13/17 03/14/17 00:59 00:59 23:59 23:59 Intake Total 667.8 Output Total 400 Balance 267.8 Weight 184 lb 3.2 oz Gen: NAD at rest Heart: RRR Lung: decreased breath sounds at the bases Abd: soft, nontender Ext: dressings dry CBC, BMP 03/14/17 06:10 03/14/17 06:10 Active Medications Heparin Sodium (Porcine) (Heparin -) 1,000 unit IVPUSH PRN PRN PRN Reason: Heparin Heparin Sodium (Porcine) (Heparin -) 5,000 unit IVPUSH PRN PRN PRN Reason: Heparin Hydromorphone HCl (Dilaudid Injection -) 1 mg IVPB Q3H PRN PRN Reason: PAIN LEVEL 1-5 Last Admin: 03/14/17 00:27 Dose: 1 mg Sodium Chloride (Normal Saline -) 1,000 mls @ 35 mls/hr IV ASDIR [facility] Last Admin: 03/13/17 19:14 Dose: 35 mls/hr Alteplase, Recombinant 12 mg/ (Dextrose) 250 mls @ 20.8 mls/hr NR Q12H [facility] Stop: 03/14/17 22:59 Last Admin: 03/14/17 12:17 Dose: 10.4 mls/hr Heparin Sodium (Porcine) 25, (000 unit/ Sodium Chloride) 500 mls @ 10 mls/hr IV TITR DARIUS; 500 UNIT/HR PRN Reason: Protocol Last Titration: 03/14/17 01:01 Dose: 500 unit/hr Lactated Ringer's (Lactated Ringers Solution) 1,000 mls @ 40 mls/hr IV ASDIR [facility] Last Admin: 03/13/17 19:15 Dose: 40 mls/hr Metoprolol Tartrate (Lopressor -) 12.5 mg PO BID [facility] Last Admin: 03/14/17 09:09 Dose: 12.5 mg ASSESSMENT AND PLAN: Extensive LLE DVT s/p Thrombolysis Recent AAA repair HTN Hematuria - thrombolysis per vascular surgery - back to OR today - IVF - pulse checks - monitor hematuria - monitor H/H - pain control - continue ICU monitoring
[2017-03-14 13:10] LABS: MEAN CELL VOLUME 90.8 fl (80-96); MEAN PLT VOLUME 7.1 fl (7.5-11.1); PLATELET COUNT 212 K/MM3 (134-434); RDW 14.5 % (11.9-15.9); WHITE BLOOD COUNT 9.4 K/mm3 (4.0-10.0)
--- NOTE | 2017-03-14 14:46 | PN ---
Physical Exam: SUBJECTIVE: Patient seen and examined resting comfortably in bed, no events overnight, no new complaints. States LLE swelling decreased. POD #1 IVF placement. On tpa drip. OBJECTIVE: Vital Signs Period Temp Pulse Resp BP Sys/Mccormick Pulse Ox Last 24 Hr 97.4 F-101.8 F 57-105 14-23 97-141/63-88 96-100 GENERAL: The patient is awake, alert, and fully oriented, in no acute distress. LUNGS: Breath sounds equal, clear to auscultation bilaterally, no wheezes, no crackles, no accessory muscle use. HEART: Regular rate and rhythm, S1, S2 without murmur, rub or gallop. ABDOMEN: Soft, nontender, nondistended, normoactive bowel sounds, no guarding, no rebound, no hepatosplenomegaly, no masses. EXTREMITIES: 2+ pulses, warm, well-perfused, LLE edema, no erythema, dressing clean , dry intact Laboratory Results - last 24 hr 03/13/17 03/13/17 03/14/17 18:44 18:44 00:01 WBC 9.4 RBC 3.56 L Hgb 10.9 L Hct 32.8 L MCV 92.1 MCH 30.6 MCHC 33.2 RDW 15.1 Plt Count 265 MPV 7.7 Neutrophils % Lymphocytes % Monocytes % Eosinophils % Basophils % PT with INR 15.00 H 17.00 H INR 1.33 H 1.50 H PTT (Actin FS) 44.6 H D 38.1 H Fibrinogen 118.0 L D < 100.0 L* Sodium Potassium Chloride Carbon Dioxide Anion Gap BUN Creatinine Creat Clearance w eGFR Random Glucose Calcium Total Bilirubin AST ALT Alkaline Phosphatase Total Protein Albumin Urine Color Urine Appearance Urine pH Ur Specific [place] Urine Protein Urine Glucose (UA) Urine Ketones Urine Blood Urine Nitrite Urine Bilirubin Urine Urobilinogen Urine RBC Urine WBC Urine Mucus Urine Yeast 03/14/17 03/14/17 03/14/17 06:10 06:10 06:10 WBC 9.0 RBC 3.29 L Hgb 10.3 L Hct 30.0 L MCV 91.2 MCH 31.2 MCHC 34.3 RDW 14.8 Plt Count 224 MPV 7.3 L Neutrophils % 69.8 Lymphocytes % 13.6 D Monocytes % 14.0 H Eosinophils % 1.8 D Basophils % 0.8 PT with INR INR PTT (Actin FS) 36.8 H Fibrinogen Sodium 139 Potassium 4.2 Chloride 104 Carbon Dioxide 27 Anion Gap 8 BUN 14 Creatinine 0.7 Creat Clearance w eGFR > 60 Random Glucose 97 Calcium 8.2 L Total Bilirubin 0.7 D AST 13 L ALT 15 Alkaline Phosphatase 78 Total Protein 5.9 L Albumin 2.5 L Urine Color Urine Appearance Urine pH Ur Specific [place] Urine Protein Urine Glucose (UA) Urine Ketones Urine Blood Urine Nitrite Urine Bilirubin Urine Urobilinogen Urine RBC Urine WBC Urine Mucus Urine Yeast 03/14/17 03/14/17 03/14/17 08:44 12:30 12:30 WBC 9.4 RBC 3.55 L Hgb 10.7 L Hct 32.3 L MCV 90.8 MCH 30.0 MCHC 33.0 RDW 14.5 Plt Count 212 MPV 7.1 L Neutrophils % Lymphocytes % Monocytes % Eosinophils % Basophils % PT with INR INR PTT (Actin FS) Fibrinogen < 100.0 L* Sodium Potassium Chloride Carbon Dioxide Anion Gap BUN Creatinine Creat Clearance w eGFR Random Glucose Calcium Total Bilirubin AST ALT Alkaline Phosphatase Total Protein Albumin Urine Color Red Urine Appearance Cloudy Urine pH 6.0 Ur Specific [place] 1.015 Urine Protein 2+ H Urine Glucose (UA) Negative Urine Ketones Negative Urine Blood 2+ H Urine Nitrite Negative Urine Bilirubin Negative Urine Urobilinogen Negative Urine RBC 7706 Urine WBC 14 Urine Mucus Few Urine Yeast Many Active Medications Generic Name Dose Route Start Last Admin Trade Name Freq PRN Reason Stop Dose Admin Heparin Sodium (Porcine) 1,000 unit 03/13/17 12:37 Heparin - IVPUSH PRN PRN Heparin Heparin Sodium (Porcine) 5,000 unit 03/13/17 12:37 Heparin - IVPUSH PRN PRN Heparin Hydromorphone HCl 1 mg 03/13/17 12:10 03/14/17 00:27 Dilaudid Injection - IVPB 1 mg Q3H PRN Administration PAIN LEVEL 1-5 Sodium Chloride 1,000 mls @ 35 mls/hr 03/13/17 12:15 03/13/17 19:14 Normal Saline - IV 35 mls/hr ASDIR DARIUS Administration Alteplase, Recombinant 12 mg/ 250 mls @ 20.8 mls/hr 03/13/17 23:00 03/14/17 12: 17 Dextrose NR 03/14/17 22:59 10.4 mls/hr Q12H DARIUS Administration Heparin Sodium (Porcine) 25, 500 mls @ 10 mls/hr 03/13/17 12:37 03/14/17 01:01 000 unit/ Sodium Chloride IV 500 unit/hr TITR DARIUS Titration Protocol 500 UNIT/HR Lactated Ringer's 1,000 mls @ 40 mls/hr 03/13/17 17:30 03/13/17 19:15 Lactated Ringers Solution IV 40 mls/hr ASDIR DARIUS Administration Metoprolol Tartrate 12.5 mg 03/13/17 22:00 03/14/17 09:09 Lopressor - PO 12.5 mg BID DARIUS Administration ASSESSMENT/PLAN: 56 year old male with a past medical history of AAA repair, HTN presented with LLE edema and erythema, admitted for LLE DVT, s/p IVC, placement of EKOS thrombolysis catheter left popliteal vein. Currently on tpa drip. #Vascular: -DVT POD #1 LLE IVC placement on TPA and heparin drip -plan to go back to OR today for further eval #Cardiovascular: -hypertension controlled with lopressor 12.5mg po bid #Renal: -gross hematuria most likely secondary to hep/tpa drip -f/u ua and uc; FEN: Lactated ringer Electrolytes wnl Currently npo for further surgical eval VTE prop: on hep GI proph: n/a Disposition: ICU; pending further sx eval Problem List - Problems (1) DVT (deep venous thrombosis) Code(s): I82.409 - ACUTE EMBOLISM AND THOMBOS UNSP DEEP VN UNSP LOWER EXTREMITY Qualifiers: DVT location: lower extremity Affected thrombotic vein of extremity: iliac Chronicity: acute Laterality: left Qualified Code(s): I82.422 - Acute embolism and thrombosis of left iliac vein; I82.422 - Acute embolism and thrombosis of left iliac vein; I82.422 - Acute embolism and thrombosis of left iliac vein; I82.422 - Acute embolism and thrombosis of left iliac vein (2) Hematuria Code(s): R31.9 - HEMATURIA, UNSPECIFIED Qualifiers: Hematuria type: gross Qualified Code(s): R31.0 - Gross hematuria; R31.0 - Gross hematuria (3) AAA (abdominal aortic aneurysm) without rupture Code(s): I71.4 - ABDOMINAL AORTIC ANEURYSM, WITHOUT RUPTURE (4) HTN (hypertension) Code(s): I10 - ESSENTIAL (PRIMARY) HYPERTENSION Visit type - Emergency Visit Emergency Visit: Yes ED Registration Date: 03/10/17 Care time: The patient presented to the Emergency Department on the above date and was hospitalized for further evaluation of their emergent condition. - New Patient This patient is new to me today: Yes Date on this admission: 03/14/17 - Critical Care Critical Care patient: Yes Total Critical Care Time (in minutes): 35 Critical Care Statement: The care of this patient involved high complexity decision making to prevent further life threatening deterioration of the patient 's condition and/or to evaluate & treat vital organ system(s) failure or risk of failure.
[2017-03-14] MEDS: SODIUM CHLORIDE 1,000 ML IV SCH (15:25)
[2017-03-14] MEDS ORDERED: HEPARIN NA (PORCINE) 5,000 UNITS/ML 1ML VIAL ONE (15:31)
[2017-03-14] MEDS ORDERED: MIDAZOLAM HCL 2 MG/2 ML SINGLE DOSE VIAL ONE (16:14)
[2017-03-14] MEDS ORDERED: fentaNYL CITRATE 250 MCG/5 ML VIAL ONE (16:19)
[2017-03-14] MEDS ORDERED: PROPOFOL 20 ML ONE ×4 (16:29→18:22)
[2017-03-14] MEDS ORDERED: ceFAZolin SODIUM 1 GM VIAL ONE (16:29)
[2017-03-14] MEDS ORDERED: ceFAZolin SODIUM 1 GM VIAL IVPB ONE (16:31)
[2017-03-14] MEDS ORDERED: LIDOCAINE HCL/PF 2% SDV 5ML VIAL ONE (17:41)
[2017-03-14 18:37] LABS: URINE LEUK ESTERASE Negative (NEGATIVE)
--- NOTE | 2017-03-14 18:52 | OP ---
Operative Note - Note: Operative Date: 03/14/17 Pre-Operative Diagnosis: DVT left femoral, iliac, IVC Operation: Suction thrombectomy, venoplasty, stent placement left IVC, iliac veins. IVUS Findings: Partial lysis of clot after 18 hrs TPA infusion Stenosis of proximal left IVC, iliac and common femoral veins. Implants: 18 mm x 90 mm Wall stent - IVC to left CIV. 20 mm x 80 mm Wall stent - CIV to EIV Post-Operative Diagnosis: Same as Pre-op Surgeon: Ruddy Duncan Anesthesiologist/BLINDSTITCH MACHINE OPERATOR: Annie Rooney Anesthesia: Fractional
[2017-03-14] MEDS ORDERED: LABETALOL HCL 5 MG/1 ML (100MG/20 ML VIAL) ONE (19:12)
[2017-03-14] MEDS ORDERED: HEPARIN NA (PORCINE) 5,000 UNITS/ML 1ML VIAL IVPUSH PRN ×3 (19:23)
[2017-03-14] MEDS ORDERED: LACTATED RINGERS SOLUTION 1,000 ML IV SCH (19:23)
[2017-03-14] MEDS ORDERED: HEPARIN - 25,000 UNIT in SODIUM CHLORIDE 495 ML IV SCH (19:23)
[2017-03-14 20:08] LABS: MCH 32.7 pg (25.7-33.7); MCHC 35.8 g/dl (32.0-35.9); MEAN CELL VOLUME 91.3 fl (80-96); MEAN PLT VOLUME 7.7 fl (7.5-11.1); PLATELET COUNT 175 K/MM3 (134-434); RDW 14.7 % (11.9-15.9); WHITE BLOOD COUNT 10.8 K/mm3 (4.0-10.0)
[2017-03-14] MEDS ORDERED: METOPROLOL TARTRATE 5 MG/5 ML VIAL ONE (20:22)
[2017-03-14] MEDS ORDERED: METOPROLOL TARTRATE 5 MG/5 ML VIAL IVPUSH ONE (20:25)
[2017-03-14] MEDS ORDERED: ONDANSETRON 4 MG/2 ML VIAL IVPUSH ONE (20:25)
[2017-03-14] MEDS ORDERED: ONDANSETRON 4 MG/2 ML VIAL ONE (20:29)
[2017-03-14] MEDS ORDERED: LABETALOL HCL 5 MG/1 ML (100MG/20 ML VIAL) IVPUSH ONE (20:45)
[2017-03-14] MEDS: HYDROmorphone HCL CARPU-JECT 1 MG/1 ML DISP.SYRIN IVPB PRN ×2 (20:50→23:55)
[2017-03-15] MEDS: HEPARIN NA (PORCINE) 5,000 UNITS/ML 1ML VIAL IVPUSH PRN ×2 (03:50→13:53)
[2017-03-15] MEDS: HYDROmorphone HCL CARPU-JECT 1 MG/1 ML DISP.SYRIN IVPB PRN (05:31)
[2017-03-15 07:43] LABS: MCH 31.1 pg (25.7-33.7); MCHC 34.3 g/dl (32.0-35.9); MEAN CELL VOLUME 90.7 fl (80-96); PLATELET COUNT 169 K/MM3 (134-434); WHITE BLOOD COUNT 10.9 K/mm3 (4.0-10.0)
[2017-03-15 07:54] LABS: ANION GAP 9 (8-16); CALCIUM 7.8 mg/dL (8.5-10.1); CO2 28 mmol/L (21-32); CREATININE 1.9 mg/dL (0.7-1.3); GLUCOSE,RANDOM 106 mg/dL (74-106); PHOSPHOROUS 5.7 mg/dL (2.5-4.9)
--- NOTE | 2017-03-15 08:33 | PN ---
Progress Note (short form) - Note Progress Note: Post op day #1.S/P Left femoral and Iliac suction thrombectomy under Mac uneventful.P 46,BP 111/71 ang Spo2 100% on O2 3L NC.Patient stable.No any anesthesia related problem.Patient Dc from the anesthesia care.
[2017-03-15] MEDS ORDERED: SODIUM CHLORIDE 1,000 ML IV SCH (09:00)
[2017-03-15] MEDS: METOPROLOL TARTRATE 25 MG TABLET (FP) PO SCH ×2 (09:21→21:43)
--- NOTE | 2017-03-15 11:07 | PN ---
Progress Note, Physician Chief Complaint: Mr Ng says he is feeling much better. Says his leg is not hurting. No cp, sob, n/v. - Current Medication List Current Medications: Active Medications Heparin Sodium (Porcine) (Heparin -) 1,000 unit IVPUSH PRN PRN PRN Reason: Heparin Heparin Sodium (Porcine) (Heparin -) 5,000 unit IVPUSH PRN PRN PRN Reason: Heparin Last Admin: 03/15/17 03:50 Dose: 5,000 unit Hydromorphone HCl (Dilaudid Injection -) 1 mg IVPB Q3H PRN PRN Reason: PAIN LEVEL 1-5 Last Admin: 03/15/17 05:31 Dose: 1 mg Heparin Sodium (Porcine) 25, (000 unit/ Sodium Chloride) 500 mls @ 16 mls/hr IV TITR DARIUS; 800 UNIT/HR PRN Reason: Protocol Last Titration: 03/15/17 03:50 Dose: 950 unit/hr Lactated Ringer's (Lactated Ringers Solution) 1,000 mls @ 80 mls/hr IV ASDIR DARIUS Last Admin: 03/14/17 19:25 Dose: 80 mls/hr Sodium Chloride (Normal Saline -) 1,000 mls @ 125 mls/hr IV ASDIR DARIUS Last Admin: 03/15/17 09:25 Dose: 125 mls/hr Metoprolol Tartrate (Lopressor -) 12.5 mg PO BID DARIUS Last Admin: 03/15/17 09:21 Dose: 12.5 mg - Objective Vital Signs: Vital Signs Temperature 37.6 C H 03/15/17 10:00 Pulse Rate 57 L 03/15/17 10:00 Respiratory Rate 19 03/15/17 10:00 Blood Pressure 137/85 03/15/17 10:00 O2 Sat by Pulse Oximetry (%) 100 03/15/17 08:48 Constitutional: Yes: Well Nourished, No Distress, Calm Cardiovascular: Yes: Regular Rate and Rhythm. No: Gallop, Murmur, Rub Respiratory: Yes: Regular, CTA Bilaterally. No: Rales, Rhonchi, Wheezes Gastrointestinal: Yes: Normal Bowel Sounds, Soft. No: Distention, Tenderness Extremities: Yes: Other (LLE wrapped) Edema: Yes Edema: LLE: 1+ Labs: CBC, BMP 03/15/17 05:30 03/15/17 05:30 INR, PTT INR 1.50 (0.82-1.09) H 03/14/17 00:01 Fibrinogen < 100.0 mg/dL (238-498) L* 03/14/17 12:30 Problem List - Problems (1) DVT (deep venous thrombosis) Code(s): I82.409 - ACUTE EMBOLISM AND THOMBOS UNSP DEEP VN UNSP LOWER EXTREMITY Qualifiers: Qualified Code(s): I82.422 - Acute embolism and thrombosis of left iliac vein; I82.422 - Acute embolism and thrombosis of left iliac vein; I82.422 - Acute embolism and thrombosis of left iliac vein; I82.422 - Acute embolism and thrombosis of left iliac vein (2) AAA (abdominal aortic aneurysm) without rupture Code(s): I71.4 - ABDOMINAL AORTIC ANEURYSM, WITHOUT RUPTURE (3) HTN (hypertension) Code(s): I10 - ESSENTIAL (PRIMARY) HYPERTENSION (4) Hematuria Code(s): R31.9 - HEMATURIA, UNSPECIFIED Qualifiers: Qualified Code(s): R31.0 - Gross hematuria; R31.0 - Gross hematuria Assessment/Plan (1) DVT (deep venous thrombosis) Assessment/Plan: -appreciate Dr Duncan's assistance -s/p thrombolysis and stent placement -transition to oral anticoagulation when safe from vascular surgery standpoint Code(s): I82.409 - ACUTE EMBOLISM AND THOMBOS UNSP DEEP VN UNSP LOWER EXTREMITY Qualifiers: DVT location: lower extremity Affected thrombotic vein of extremity: iliac Chronicity: acute Laterality: left Qualified Code(s): I82.422 - Acute embolism and thrombosis of left iliac vein; I82.422 - Acute embolism and thrombosis of left iliac vein; I82.422 - Acute embolism and thrombosis of left iliac vein; I82.422 - Acute embolism and thrombosis of left iliac vein (2) AAA (abdominal aortic aneurysm) without rupture Assessment/Plan: -s/p repair Code(s): I71.4 - ABDOMINAL AORTIC ANEURYSM, WITHOUT RUPTURE (3) HTN (hypertension) Assessment/Plan: -continue lisinopril and metoprolol Code(s): I10 - ESSENTIAL (PRIMARY) HYPERTENSION (4) Hematuria -much improved -secondary to alteplase (5) LENORE -may be secondary to blood loss -however with hematuria concerning for possible bleeding -obtain ultrasound to evaluate kidneys -continue hydration -can continue lisinopril currently -monitor for improvement (6) Acute blood loss anemia -secondary to hematuria -does not need transfusion currently -hematuria improving, expect Hgb to stabilize
--- NOTE | 2017-03-15 11:44 | PN ---
Teaching Attending Note Name of Resident: Terra Hi ATTENDING PHYSICIAN STATEMENT I saw and evaluated the patient. I reviewed the resident's note and discussed the case with the resident. I agree with the resident's findings and plan as documented. SUBJECTIVE: Pt seen and examined in the ICU. s/p bilateral CIV stent placements. States leg pain is much improved. No shortness of breath or chest pain. OBJECTIVE: Last Vital Signs Temp Pulse Resp BP Pulse Ox 99.7 F H 57 L 19 137/85 100 03/15/17 10:00 03/15/17 10:00 03/15/17 10:00 03/15/17 10:00 03/15/17 08:48 Intake & Output 03/13/17 03/13/17 03/14/17 03/15/17 00:59 23:59 23:59 23:59 Intake Total 2995.8 Output Total 1175 500 Balance 1820.8 -500 Weight 184 lb 3.2 oz Gen: NAD at rest Heart: RRR Lung: decreased breath sounds at the bases Abd: soft, nontender Ext: LLE wrapped CBC, BMP 03/15/17 05:30 03/15/17 05:30 Active Medications Heparin Sodium (Porcine) (Heparin -) 1,000 unit IVPUSH PRN PRN PRN Reason: Heparin Heparin Sodium (Porcine) (Heparin -) 5,000 unit IVPUSH PRN PRN PRN Reason: Heparin Last Admin: 03/15/17 03:50 Dose: 5,000 unit Hydromorphone HCl (Dilaudid Injection -) 1 mg IVPB Q3H PRN PRN Reason: PAIN LEVEL 1-5 Last Admin: 03/15/17 05:31 Dose: 1 mg Heparin Sodium (Porcine) 25, (000 unit/ Sodium Chloride) 500 mls @ 16 mls/hr IV TITR DARIUS; 800 UNIT/HR PRN Reason: Protocol Last Titration: 03/15/17 03:50 Dose: 950 unit/hr Lactated Ringer's (Lactated Ringers Solution) 1,000 mls @ 80 mls/hr IV ASDIR DARIUS Last Admin: 03/14/17 19:25 Dose: 80 mls/hr Sodium Chloride (Normal Saline -) 1,000 mls @ 125 mls/hr IV ASDIR DARIUS Last Admin: 03/15/17 09:25 Dose: 125 mls/hr Metoprolol Tartrate (Lopressor -) 12.5 mg PO BID [facility] Last Admin: 03/15/17 09:21 Dose: 12.5 mg ASSESSMENT AND PLAN: Extensive LLE DVT s/p Thrombolysis Recent AAA repair HTN Hematuria Acute Kidney Injury - continue anticoagulation - IVF - monitor urine output, creatinine - pulse checks - monitor hematuria - monitor H/H - pain control - can transfer to floor if ok with surgery
[2017-03-15 14:17] LABS: ANION GAP 10 (8-16); CALCIUM 7.7 mg/dL (8.5-10.1); CO2 26 mmol/L (21-32); CREATININE 2.3 mg/dL (0.7-1.3); GLUCOSE,RANDOM 120 mg/dL (74-106)
--- NOTE | 2017-03-15 14:53 | PN ---
Progress Note (short form) - Note Progress Note: Pt seen this am with Dr. Duncan Vital Signs Period Temp Pulse Resp BP Sys/Mccormick Pulse Ox Last 24 Hr 98.2 F-99.7 F 47-69 15-21 111-192/71-106 100-100 uop:1300(tea colored) GEN: A&0x3, NAD Left leg with swelling, inc sites c/d/i. Applied jose wrap from foot to above the knee INR, PTT INR 1.50 (0.82-1.09) H 03/14/17 00:01 Fibrinogen < 100.0 mg/dL (238-498) L* 03/14/17 12:30 Laboratory Tests 03/15/17 10:22 PTT (Actin FS) 31.0 A/P: s/p Partial lysis of clot with TPA infusion /Stenosis of proximal left IVC, iliac and common femoral veins Plan for filter removal tomorrow at 4 pm, npo after breakfast breen removed, he voided please recorded out pt Renal consult, will continue IV hydration hold heparin 4 hours prior to procedure
[2017-03-15] MEDS ORDERED: HEPARIN - 25,000 UNIT in SODIUM CHLORIDE 495 ML IV SCH (15:33)
[2017-03-15] MEDS ORDERED: HYDROmorphone HCL CARPU-JECT 1 MG/1 ML DISP.SYRIN IVPB PRN (15:33)
[2017-03-15] MEDS ORDERED: HEPARIN NA (PORCINE) 5,000 UNITS/ML 1ML VIAL IVPUSH PRN ×4 (15:33)
[2017-03-15] MEDS: SODIUM CHLORIDE 1,000 ML IV SCH (15:33)
[2017-03-15 16:02] LABS: MAGNESIUM 1.8 mg/dL (1.8-2.4)
--- NOTE | 2017-03-15 19:35 | PN ---
Physical Exam: SUBJECTIVE: Patient seen and examined, no new complaints, S/P thrombolysis and stent placement. LLE swelling improveing, no pain. OBJECTIVE: Vital Signs Period Temp Pulse Resp BP Sys/Mccormick Pulse Ox Last 24 Hr 97.9 F-99.7 F 50-78 15-21 111-192/71-106 97-100 GENERAL: The patient is awake, alert, and fully oriented, in no acute distress. LUNGS: Breath sounds equal, clear to auscultation bilaterally, no wheezes, no crackles, no accessory muscle use. HEART: Regular rate and rhythm, S1, S2 without murmur, rub or gallop. ABDOMEN: Soft, nontender, nondistended, normoactive bowel sounds, no guarding, no rebound, no hepatosplenomegaly, no masses. EXTREMITIES: 2+ pulses, warm, well-perfused, no edema. bilateral pedal pulses present; decreased LLE swelling. dressing C/D/I NEUROLOGICAL: Cranial nerves II through XII grossly intact. Normal speech, gait not observed. Laboratory Results - last 24 hr 03/14/17 03/14/17 03/15/17 19:55 19:55 02:47 WBC 10.8 H RBC 3.15 L Hgb 10.3 L Hct 28.8 L MCV 91.3 MCH 32.7 MCHC 35.8 RDW 14.7 Plt Count 175 MPV 7.7 PTT (Actin FS) 47.1 H 33.1 Sodium Potassium Chloride Carbon Dioxide Anion Gap BUN Creatinine Random Glucose Calcium Phosphorus Magnesium Ur Random Sodium Urine Creatinine 03/15/17 03/15/17 03/15/17 05:30 05:30 10:22 WBC 10.9 H RBC 2.96 L Hgb 9.2 L D Hct 26.8 L MCV 90.7 MCH 31.1 MCHC 34.3 RDW 15.0 Plt Count 169 MPV 8.0 PTT (Actin FS) 31.0 Sodium 139 Potassium 4.4 Chloride 102 Carbon Dioxide 28 Anion Gap 9 BUN 27 H D Creatinine 1.9 H D Random Glucose 106 Calcium 7.8 L Phosphorus 5.7 H D Magnesium 1.8 Ur Random Sodium Urine Creatinine 03/15/17 03/15/17 03/15/17 13:00 13:00 13:35 WBC RBC Hgb Hct MCV MCH MCHC RDW Plt Count MPV PTT (Actin FS) Sodium 138 Potassium 4.5 Chloride 102 Carbon Dioxide 26 Anion Gap 10 BUN 29 H Creatinine 2.3 H D Random Glucose 120 H Calcium 7.7 L Phosphorus Magnesium Ur Random Sodium 78 Urine Creatinine 30.5 Active Medications Generic Name Dose Route Start Last Admin Trade Name Freq PRN Reason Stop Dose Admin Heparin Sodium (Porcine) 1,000 unit 03/15/17 15:33 Heparin - IVPUSH PRN PRN Heparin Heparin Sodium (Porcine) 5,000 unit 03/15/17 15:33 Heparin - IVPUSH PRN PRN Heparin Hydromorphone HCl 1 mg 03/15/17 15:33 Dilaudid Injection - IVPB Q3H PRN PAIN LEVEL 1-5 Heparin Sodium (Porcine) 25, 500 mls @ 16 mls/hr 03/15/17 15:33 000 unit/ Sodium Chloride IV TITR DARIUS Protocol 800 UNIT/HR Sodium Chloride 1,000 mls @ 125 mls/hr 03/15/17 15:33 03/15/17 15:33 Normal Saline - IV 125 mls/hr ASDIR DARIUS Administration Metoprolol Tartrate 12.5 mg 03/15/17 22:00 Lopressor - PO BID [facility] ASSESSMENT/PLAN: 56 year old male with a past medical history of AAA repair, HTN presented with LLE edema and erythema, admitted for LLE DVT, s/p IVC, placement of EKOS thrombolysis catheter left popliteal vein. Currently on tpa drip. #Vascular: -DVT ;left poplitral vein; TPA s/p thrombolysis and IVC -tpa d/c'd -still on heparin drip; transition to oral when cleared by vascularl #Cardiovascular: -hypertension controlled with lopressor 12.5mg po bid #Renal: -gross hematuria most likely secondary to hep/tpa drip; resolved -f/u ua and uc; -LENORE most likely contrast induced -IVF -renal consult FEN: Fluids NS ELectrolytes: wnl Diet Po VTE: on heparin drip Disposition : transfer to floor Problem List - Problems (1) DVT (deep venous thrombosis) Code(s): I82.409 - ACUTE EMBOLISM AND THOMBOS UNSP DEEP VN UNSP LOWER EXTREMITY Qualifiers: Qualified Code(s): I82.422 - Acute embolism and thrombosis of left iliac vein; I82.422 - Acute embolism and thrombosis of left iliac vein; I82.422 - Acute embolism and thrombosis of left iliac vein; I82.422 - Acute embolism and thrombosis of left iliac vein (2) Hematuria Code(s): R31.9 - HEMATURIA, UNSPECIFIED Qualifiers: Qualified Code(s): R31.0 - Gross hematuria; R31.0 - Gross hematuria (3) AAA (abdominal aortic aneurysm) without rupture Code(s): I71.4 - ABDOMINAL AORTIC ANEURYSM, WITHOUT RUPTURE (4) HTN (hypertension) Code(s): I10 - ESSENTIAL (PRIMARY) HYPERTENSION Visit type - Emergency Visit Emergency Visit: Yes ED Registration Date: 03/10/17 Care time: The patient presented to the Emergency Department on the above date and was hospitalized for further evaluation of their emergent condition. - New Patient This patient is new to me today: No - Critical Care Critical Care patient: Yes Total Critical Care Time (in minutes): 35 Critical Care Statement: The care of this patient involved high complexity decision making to prevent further life threatening deterioration of the patient 's condition and/or to evaluate & treat vital organ system(s) failure or risk of failure.
[2017-03-15] MEDS ORDERED: HEPARIN INFUSION - 500 ML IVPB SCH (22:00)
[2017-03-16] MEDS ORDERED: LIDOCAINE HCL 1%, 10 MG/ML (20ML VIAL) PNB ONE ×2
[2017-03-16] MEDS: SODIUM CHLORIDE 1,000 ML IV SCH ×3 (00:14→21:58)
[2017-03-16 08:07] LABS: MCH 30.6 pg (25.7-33.7); MCHC 34.2 g/dl (32.0-35.9); MEAN CELL VOLUME 89.6 fl (80-96); MEAN PLT VOLUME 7.7 fl (7.5-11.1); PLATELET COUNT 207 K/MM3 (134-434); WHITE BLOOD COUNT 10.8 K/mm3 (4.0-10.0)
[2017-03-16] MEDS: METOPROLOL TARTRATE 25 MG TABLET (FP) PO SCH ×2 (09:14→21:59)
[2017-03-16 09:21] LABS: ANION GAP 9 (8-16); CALCIUM 7.3 mg/dL (8.5-10.1); CO2 23 mmol/L (21-32); CREATININE 2.6 mg/dL (0.7-1.3); GLUCOSE,RANDOM 101 mg/dL (74-106)
[2017-03-16 10:34] VITALS: BMI 24.3
--- NOTE | 2017-03-16 10:34 | CON.NEP ---
Consult Consult Specialty:: Nephrology Referred by:: Dr. Ng - Past Medical History Cardio/Vascular: Yes: HTN Additional Medical History: Presumed connective tissue disorder - genetic testing pending - Past Surgical History Past Surgical History: Yes: AAA Repair ((12/26/2016)) - Alcohol/Substance Use Hx Alcohol Use: Yes (12/23 last drink-6 drinks) - Smoking History Smoking history: Former smoker Have you smoked in the past 12 months: No - Social History Usual Living Arrangement: Alone ADL: Independent Home Medications - Allergies Allergies/Adverse Reactions: Allergies Allergy/AdvReac Type Severity Reaction Status Date / Time No Known Allergies Allergy Verified 03/10/17 11:46 - Home Medications Home Medications: Ambulatory Orders Lisinopril [Prinivil] 40 mg PO DAILY #60 tablet 01/03/17 Metoprolol Tartrate [Lopressor -] 25 mg PO BID #60 tablet 01/03/17 Family Disease History - Family Disease History Family Disease History: Other: Father (phlebitis) Nephrology Consult - Height Height: 6 ft 1 in - Weight Weight: 184 lb 3.2 oz - BMI Body Mass Index (BMI): 24.3 - Lab Results CBC,BMP: CBC, BMP 03/16/17 07:20 03/16/17 07:20 Anion Gap: Anion Gap Anion Gap 9 (8-16) 03/16/17 07:20 - Physical Examination Vital Signs: Vital Signs Temperature 98.7 F 03/16/17 02:00 Pulse Rate 68 03/16/17 02:00 Respiratory Rate 18 03/16/17 02:00 Blood Pressure 141/85 03/16/17 02:00 O2 Sat by Pulse Oximetry (%) 99 03/15/17 21:00
--- NOTE | 2017-03-16 10:37 | PN ---
Teaching Attending Note Name of Resident: Jer Oakely (Nephrology) ATTENDING PHYSICIAN STATEMENT I saw and evaluated the patient. I reviewed the resident's note and discussed the case with the resident. I agree with the resident's findings and plan as documented. SUBJECTIVE: This is a 56 year old gentleman with PMhx of Hypertension, open repair of a large abdominal aortic and bilateral iliac aneurysms with aorta to right iliac and left femoral bypass who presented with leg swelling and found to have a large thrombosis of the LE extending to the left sided IVC. Pt without any history of CKD. AAA repair was 3 months ago that included ligation of left renal vein w/o adverse effects to kidney function. + Contrast exposure on 03/10 annd 03/13. No N/V/D. No chest pain or sob. Making urine. No hematuria, dysuria. PMhx: As above Allergies: NKDA Family Hx: NC Social Hx: No T/A/D ROS: as per HPI, all other ROS negative OBJECTIVE: Vital Signs Temperature 98.7 F 03/16/17 02:00 Pulse Rate 68 03/16/17 02:00 Respiratory Rate 18 03/16/17 02:00 Blood Pressure 141/85 03/16/17 02:00 O2 Sat by Pulse Oximetry (%) 99 03/15/17 21:00 Intake & Output 03/13/17 03/14/17 03/15/17 03/16/17 23:59 23:59 23:59 23:59 Intake Total 2995.8 2088 Output Total 1175 900 600 Balance 1820.8 1188 -600 Weight 184 lb 3.2 oz 184 lb 3.2 oz NAD, awake and alert MMM, No JVD, Neck supple RRR, NO M/R Soft NT/ND, no rebound left leg in dressing No bladder distension no focal neurological deficits CBC, BMP 03/16/17 07:20 03/16/17 07:20 Current Medications Heparin Sodium (Porcine) (Heparin -) 1,000 unit IVPUSH PRN PRN PRN Reason: Heparin Heparin Sodium (Porcine) (Heparin -) 5,000 unit IVPUSH PRN PRN PRN Reason: Heparin Last Admin: 03/15/17 22:36 Dose: 5,000 unit Hydromorphone HCl (Dilaudid Injection -) 1 mg IVPB Q3H PRN PRN Reason: PAIN LEVEL 1-5 Sodium Chloride (Normal Saline -) 1,000 mls @ 125 mls/hr IV ASDIR DARIUS Last Admin: 03/16/17 08:26 Dose: 125 mls/hr Heparin Sodium/Dextrose (Heparin Infusion -) 500 mls @ 16 mls/hr IVPB TITR DARIUS ; 800 UNITS/HR PRN Reason: Protocol Last Titration: 03/15/17 22:35 Dose: 1,250 units/hr, 25 mls/hr Metoprolol Tartrate (Lopressor -) 12.5 mg PO BID DARIUS Last Admin: 03/16/17 09:14 Dose: 12.5 mg ASSESSMENT AND PLAN: 56 year old gentleman with PMhx of Hypertension, open repair of a large abdominal aortic and bilateral iliac aneurysms with aorta to right iliac and left femoral bypass who presented with leg swelling and found to have a large thrombosis of the LE extending to the left sided IVC. #Acute Renal Failure with Suspected ATN in setting of contrast exposure Renal function normal on admission and thus thrombosis or AAA repair unlikely to have caused any injury Urine studies consistent with ATN No overt hypotension or lactic acidosis Keep MAP> 65 No NSSAIDS, contrast exposure supportive care expect improvement in renal function within 5-7 days from intial injury trend BUN/Cr to ensure that it is not getting worse for now no acute indication for [employer] at this time can continue IVF at lower rate for now #Large LE thrombosis management per Vascular Sx #Acute Anemia Trend CBC no acute indication for thrombosis #Hypertension Bp reasonable no TATIANA/ARB given kidney injury Thank you Edmundo Burciaga DO
--- NOTE | 2017-03-16 10:50 | CONSULT ---
Consultation: CONSULT REQUEST: We have been asked to medically evaluate this patient for NEPHROLOGY (w/Dr. Burciaga). HISTORY OF PRESENT ILLNESS: 56 y/o M w/sig PMH of HTN, AAA repair 3 days prior to admission presented to ER w/LLE swelling with reddening. Pt was found to have occlusive thrombus in L popliteal, fermoral, and common femoral veins on U/S and L IVC thrombus on CT abd. Pt's clot was lysed and IVC filter was placed on 03/13/17. Pt then had suction thrombectomy, venoplasty, and stent placement in IVC and L iliac veins on 03/14/17. Pt's Cr elevated on 03/15/17 we were consulted for elevated BUN/Cr. Pt had normal Cr on admission of note. PMH: HTN, AAA (repaired 3 days [employer]) Past surgical hx: AAA repair 03/2017; IVC filter and stent placement on this admission; thrombectomy on this admission. FH: Father: DM, colon ca Social Hx: Drinks two 2oz drinks with dinner per night. Denies drug use. Smoked 1ppd for 3-4 years and quit 20 years ago. Allergies: NKDA REVIEW OF SYSTEMS: CONSTITUTIONAL: Absent: fever, chills CARDIOVASCULAR: Absent: chest pain RESPIRATORY: Absent: cough, shortness of breath GASTROINTESTINAL: Absent: abdominal pain, nausea, vomiting GENITOURINARY: Absent: dysuria, frequency, hematuria SKIN: +rash (which he states he usually gets when he doesnt exfoliate his skin) PHYSICAL EXAMINATION Vital Signs - 24 hr 03/15/17 03/15/17 03/15/17 12:00 14:00 15:00 Temperature 97.9 F Pulse Rate 56 L 69 78 Respiratory 21 18 18 Rate Blood Pressure 113/73 126/73 130/87 O2 Sat by Pulse 97 Oximetry (%) 03/15/17 03/15/17 03/16/17 18:50 21:00 02:00 Temperature 98.4 F 98.7 F Pulse Rate 68 76 68 Respiratory 18 18 18 Rate Blood Pressure 131/82 122/71 141/85 O2 Sat by Pulse 99 Oximetry (%) GENERAL: Awake, alert, and fully oriented, in no acute distress LUNGS: Breath sounds equal, clear to auscultation bilaterally. No wheezes, and no crackles. HEART: Regular rate and rhythm, normal S1 and S2 ABDOMEN: Soft, nontender, not distended, normoactive bowel sounds MUSCULOSKELETAL: No CVA tenderness. LOWER EXTREMITIES: LLE wrapped in jose bandage. RLE with no edema. NEUROLOGICAL: Normal speech. Gait not observed. PSYCHIATRIC: Cooperative. Good eye contact. Appropriate mood and affect. SKIN: Rash noted above eyebrows on forehead. Laboratory Results - last 24 hr 03/15/17 03/15/17 03/15/17 05:30 10:22 13:00 WBC RBC Hgb Hct MCV MCH MCHC RDW Plt Count MPV Neutrophils % Lymphocytes % PTT (Actin FS) 31.0 Sodium 139 Potassium 4.4 Chloride 102 Carbon Dioxide 28 Anion Gap 9 BUN 27 H D Creatinine 1.9 H D Random Glucose 106 Calcium 7.8 L Phosphorus 5.7 H D Magnesium 1.8 Ur Random Sodium 78 Urine Creatinine 03/15/17 03/15/17 03/15/17 13:00 13:35 20:00 WBC RBC Hgb Hct MCV MCH MCHC RDW Plt Count MPV Neutrophils % Lymphocytes % PTT (Actin FS) 32.2 Sodium 138 Potassium 4.5 Chloride 102 Carbon Dioxide 26 Anion Gap 10 BUN 29 H Creatinine 2.3 H D Random Glucose 120 H Calcium 7.7 L Phosphorus Magnesium Ur Random Sodium Urine Creatinine 30.5 03/16/17 03/16/17 03/16/17 07:20 07:20 07:20 WBC 10.8 H RBC 2.80 L Hgb 8.6 L Hct 25.1 L MCV 89.6 MCH 30.6 MCHC 34.2 RDW 15.0 Plt Count 207 D MPV 7.7 Neutrophils % No Result Required. Lymphocytes % No Result Required. PTT (Actin FS) 46.4 H D Sodium 138 Potassium 4.0 Chloride 106 Carbon Dioxide 23 Anion Gap 9 BUN 29 H Creatinine 2.6 H Random Glucose 101 Calcium 7.3 L Phosphorus Magnesium Ur Random Sodium Urine Creatinine IMAGING Renal U/S: unremarkable Active Medications Generic Name Dose Route Start Last Admin Trade Name Freq PRN Reason Stop Dose Admin Heparin Sodium (Porcine) 1,000 unit 03/15/17 15:33 Heparin - IVPUSH PRN PRN Heparin Heparin Sodium (Porcine) 5,000 unit 03/15/17 15:33 03/15/17 22:36 Heparin - IVPUSH 5,000 unit PRN PRN Administration Heparin Hydromorphone HCl 1 mg 03/15/17 15:33 Dilaudid Injection - IVPB Q3H PRN PAIN LEVEL 1-5 Sodium Chloride 1,000 mls @ 125 mls/hr 03/15/17 15:33 03/16/17 08:26 Normal Saline - IV 125 mls/hr ASDIR DARIUS Administration Heparin Sodium/Dextrose 500 mls @ 16 mls/hr 03/15/17 22:00 03/15/17 22:35 Heparin Infusion - IVPB 1,250 units/hr TITR DARIUS 25 mls/hr Protocol Titration 800 UNITS/HR Metoprolol Tartrate 12.5 mg 03/15/17 22:00 03/16/17 09:14 Lopressor - PO 12.5 mg BID DARIUS Administration ASSESSMENT/PLAN: 56 y/o M w/sig PMH of HTN, AAA repair 3 days prior to admission presented to ER w/LLE swelling with reddening. Pt was found to have occlusive thrombus in L popliteal, fermoral, and common femoral veins on U/S and L IVC thrombus on CT abd. Pt's clot was lysed and IVC filter was placed on 03/13/17. Pt then had suction thrombectomy, venoplasty, and stent placement in IVC and L iliac veins on 03/14/17. We are seeing the pt for elevated BUN/Cr -Acute kidney injury -likely secondary to contrast induced nephropathy -Pt had contrast w/surgical procedure -Pt not on nephrotoxic agents in this admission, no hypotension noted. -Renal u/s unremarkable -FeNa: 4.3% - indicative of renal etiology for LENORE -Supportive measures, If tolerable oral hydration -Monitor electrolytes, BUN/Cr -Avoid nephrotoxic agents -DVT -s/p thrombolysis and IVC filter and stent placement -vascular surgery on board Dispo: We will continue to follow the patient. Thank you for this consultative opportunity. Visit type - Emergency Visit Emergency Visit: Yes ED Registration Date: 03/10/17 Care time: The patient presented to the Emergency Department on the above date and was hospitalized for further evaluation of their emergent condition. - New Patient This patient is new to me today: Yes Date on this admission: 03/16/17 - Critical Care Critical Care patient: No
[2017-03-16] MEDS ORDERED: SODIUM CHLORIDE 1,000 ML IV SCH (10:53)
--- NOTE | 2017-03-16 11:51 | PN ---
Progress Note, Physician Chief Complaint: Mr Ng is without complaint today. No cp, sob, n/v. Says his leg feels well. - Current Medication List Current Medications: Active Medications Heparin Sodium (Porcine) (Heparin -) 1,000 unit IVPUSH PRN PRN PRN Reason: Heparin Heparin Sodium (Porcine) (Heparin -) 5,000 unit IVPUSH PRN PRN PRN Reason: Heparin Last Admin: 03/15/17 22:36 Dose: 5,000 unit Hydromorphone HCl (Dilaudid Injection -) 1 mg IVPB Q3H PRN PRN Reason: PAIN LEVEL 1-5 Heparin Sodium/Dextrose (Heparin Infusion -) 500 mls @ 16 mls/hr IVPB TITR DARIUS ; 800 UNITS/HR PRN Reason: Protocol Last Titration: 03/15/17 22:35 Dose: 1,250 units/hr, 25 mls/hr Sodium Chloride (Normal Saline -) 1,000 mls @ 75 mls/hr IV ASDIR DARIUS Metoprolol Tartrate (Lopressor -) 12.5 mg PO BID DARIUS Last Admin: 03/16/17 09:14 Dose: 12.5 mg - Objective Vital Signs: Vital Signs Temperature 37.1 C 03/16/17 02:00 Pulse Rate 73 03/16/17 10:54 Respiratory Rate 18 03/16/17 02:00 Blood Pressure 141/85 03/16/17 02:00 O2 Sat by Pulse Oximetry (%) 98 03/16/17 10:54 Constitutional: Yes: Well Nourished, No Distress, Calm Cardiovascular: Yes: Regular Rate and Rhythm. No: Gallop, Murmur, Rub Respiratory: Yes: Regular, CTA Bilaterally. No: Rales, Rhonchi, Wheezes Gastrointestinal: Yes: Normal Bowel Sounds, Soft. No: Distention, Tenderness Extremities: Yes: WNL Edema: Yes Edema: LLE: 1+ Labs: CBC, BMP 03/16/17 07:20 03/16/17 07:20 INR, PTT INR 1.50 (0.82-1.09) H 03/14/17 00:01 Fibrinogen < 100.0 mg/dL (238-498) L* 03/14/17 12:30 Problem List - Problems (1) AAA (abdominal aortic aneurysm) without rupture Code(s): I71.4 - ABDOMINAL AORTIC ANEURYSM, WITHOUT RUPTURE (2) HTN (hypertension) Code(s): I10 - ESSENTIAL (PRIMARY) HYPERTENSION (3) DVT (deep venous thrombosis) Code(s): I82.409 - ACUTE EMBOLISM AND THOMBOS UNSP DEEP VN UNSP LOWER EXTREMITY Qualifiers: DVT location: lower extremity Affected thrombotic vein of extremity: iliac Chronicity: acute Laterality: left Qualified Code(s): I82.422 - Acute embolism and thrombosis of left iliac vein (4) Hematuria Code(s): R31.9 - HEMATURIA, UNSPECIFIED Qualifiers: Hematuria type: gross Qualified Code(s): R31.0 - Gross hematuria Assessment/Plan (1) DVT (deep venous thrombosis) Assessment/Plan: -appreciate Dr Duncan's assistance -s/p thrombolysis and stent placement -plan for filter removal today -currently on heparin gtt, will need to be transitioned to oral AC on discharge -possible NOAC but complicated by renal function Code(s): I82.409 - ACUTE EMBOLISM AND THOMBOS UNSP DEEP VN UNSP LOWER EXTREMITY Qualifiers: DVT location: lower extremity Affected thrombotic vein of extremity: iliac Chronicity: acute Laterality: left Qualified Code(s): I82.422 - Acute embolism and thrombosis of left iliac vein; I82.422 - Acute embolism and thrombosis of left iliac vein; I82.422 - Acute embolism and thrombosis of left iliac vein; I82.422 - Acute embolism and thrombosis of left iliac vein (2) AAA (abdominal aortic aneurysm) without rupture Assessment/Plan: -s/p repair Code(s): I71.4 - ABDOMINAL AORTIC ANEURYSM, WITHOUT RUPTURE (3) HTN (hypertension) Assessment/Plan: -continue metoprolol -holding lisinopril secondary to LENORE Code(s): I10 - ESSENTIAL (PRIMARY) HYPERTENSION (4) Hematuria -much improved -secondary to alteplase (5) LENORE -renal ultrasound reviewed -appreciate nephrology assistance -secondary to contrast -monitor for improvement (6) Acute blood loss anemia -continues to decrease -if decreases below Hgb 8, would transfuse as has been a significant drop
[2017-03-16 12:26] LABS: TOTAL CELLS COUNTED 100
[2017-03-16] MEDS ORDERED: MIDAZOLAM HCL 2 MG/2 ML SINGLE DOSE VIAL ONE ×2 (15:36→16:04)
[2017-03-16] MEDS ORDERED: HEPARIN NA (PORCINE) 5,000 UNITS/ML 1ML VIAL ONE (15:39)
[2017-03-16] MEDS ORDERED: LIDOCAINE HCL 1%, 10 MG/ML (20ML VIAL) ONE (15:39)
[2017-03-16] MEDS ORDERED: ONDANSETRON 4 MG/2 ML VIAL IVPUSH PRN ×2 (16:12→16:51)
[2017-03-16] MEDS ORDERED: PROMETHAZINE HCL 25 MG/1 ML VIAL IVPUSH PRN ×2 (16:12→16:51)
[2017-03-16] MEDS ORDERED: LACTATED RINGERS SOLUTION 1,000 ML IV SCH (16:15)
--- NOTE | 2017-03-16 16:38 | OP ---
Operative Note - Note: Operative Date: 03/16/17 Pre-Operative Diagnosis: DVT Operation: Retrieval IVC filter Findings: Option filter in right IVC Post-Operative Diagnosis: Same as Pre-op Surgeon: Ruddy Duncan Anesthesiologist/AUT[employer] CLAIMS ADJUSTER: Sujatha Campbell Anesthesia: Fractional Specimens Removed: Option filter
--- NOTE | 2017-03-16 20:21 | OP ---
DATE OF OPERATION: 03/13/2017 SURGEON: Ruddy Duncan MD PROCEDURE: 1. Placement of inferior vena cava filter in the right vena cava with venogram via the right femoral vein. 2. Placement of EKOS thrombolysis catheter via the left popliteal vein with venogram of the popliteal vein and inferior vena cava and ultrasound-guided cannulation of the left popliteal vein. INDICATION: Deep vein thrombosis of the left inferior vena cava, iliac, femoral, and popliteal veins. POSTOPERATIVE DIAGNOSIS: Deep vein thrombosis of the left inferior vena cava, iliac, femoral, and popliteal veins. ANESTHESIA: Fractional. ANESTHESIOLOGIST: Ricky Lee MD OPERATIVE FINDINGS: Patient with a known deep vein thrombosis extending from the confluence of the duplicated vena cava at the level of the renal vessels, extending down to the popliteal vein. Popliteal venogram confirmed the presence of severe thrombosis. The right vena cava was patent. The conjoined vena cava above the confluence was greater than 30 mm in diameter. DESCRIPTION OF OPERATIVE PROCEDURE: Following routine patient identification, intravenous sedation was established. The right groin was prepped with ChloraPrep. Timeout was performed. Using real-time duplex imaging, the right common femoral vein was identified next to the artery. The vein was small caliber. Lidocaine was infiltrated in the skin overlying the vein. The vein was then cannulated with a micropuncture needle under ultrasound guidance. A wire was passed proximally, and the needle was exchanged for a 5-Lithuanian catheter. A long Bentson wire was then advanced through the catheter into the right inferior vena cava and then up into the right atrium. The Option filter sheath was then prepared and passed over the wire and positioned in the right inferior vena cava, approximately at the level of the renal vessels. Venography was then performed with dilute and full-strength contrast in order to visualize the cava and identify the right renal vein. The right cava was patent, and there was no evidence of intraluminal thrombus. It was difficult to visualize the opening for the right renal vein using contrast. A wire was passed up into the vein. At this level, the vena cava was significantly dilated and appeared to be greater than 30 mm in diameter. It was unclear if the wire was in a hepatic vein or the renal vein, and it was not possible to pass a catheter over to do a venogram. Decision was made to deploy the filter as high as possible while still staying within the lumen that was less than 30 mm. This was done without difficulty. A completion venogram showed good flow through the filter at this level. The sheath and wire were removed, and pressure was applied in the groin until bleeding ceased. A sterile dressing was applied. The patient was then placed in the prone position with appropriate padding. The skin of the back of the left leg around the knee was prepped with ChloraPrep. Using real-time duplex imaging, the thrombosed popliteal vein was identified. Lidocaine was infiltrated in the skin, and then, the micropuncture needle was advanced under ultrasound guidance into the popliteal vein. A wire was then advanced without difficulty more proximally, and the needle was exchanged for a 5-Lithuanian catheter. An angle-tip Glidewire was then advanced proximally under fluoroscopic guidance into the femoral vein. The catheter was exchanged for a 6-Lithuanian sheath which was placed into the popliteal vein. A venography was then performed through the sheath to reveal the thrombosed popliteal and distal femoral vein. A [employer] catheter was then used to help direct the wire more proximally, and it was advanced under fluoroscopic guidance into the inferior vena cava above the confluence of the duplicated vena cava. The catheter was injected at this level to show flow and confirm placement in the lumen of the vena cava. The wire was then replaced. An EKOS catheter with a 50-cm treatment length was then exchanged over the wire, and the tip positioned just at the confluence of the vena cavae. The distal end of the treatment zone was seen in the mid-femoral vein. The sheath was sutured to the skin with nylon at this level, and the catheter was firmly attached to the skin with multiple adherent dressings. The EKOS wire was placed into the catheter, and then, the tissue plasminogen activator drip was set up and started at 1 mg per hour. The patient was then placed in his bed in the supine position and taken to ICU. Radha [id number]
--- NOTE | 2017-03-16 20:37 | OP ---
DATE OF OPERATION: 03/14/2017 SURGEON: Ruddy Duncan MD PROCEDURE: Suction thrombectomy of the left inferior vena cava, iliac, and femoral veins. Venoplasty and stent placement in the left inferior vena cava and iliac veins. Intravascular ultrasound. INDICATION: Deep vein thrombosis of the left inferior vena cava and iliac and femoral veins. ANESTHESIA: Fractional. ANESTHESIOLOGIST: Annie Rooney MD OPERATIVE FINDINGS: Upon return to the operating room, venography revealed partial lysis of the clot extending from the proximal left IVC to the popliteal vein. After suction thrombectomy, intravascular ultrasound confirmed the severe compression of the proximal left IVC with several areas of stenosis in the iliac and femoral vein. DESCRIPTION OF PROCEDURE: The patient was brought to the operating room from ICU. He was placed in the prone position with appropriate padding. The IVUS wire was removed from the catheter which was flushed with saline and capped. The dressings were removed from around the sheath, and the skin and the sheath were prepped with Betadine solution and sterilely draped. Timeout was performed. The EKOS catheter was cut, and a Glidewire was advanced through the lumen under fluoroscopic guidance into the inferior vena cava and the right atrium. The catheter was removed. The old sheath was removed, and a new 8-Japanese sheath was advanced over the wire into the popliteal vein. Venography was then performed showing residual clot within the popliteal and distal femoral vein with good clearing of the proximal femoral vein and irregular flow throughout the iliac vein. The AngioJet device was then employed using a Zelante catheter to perform suction thrombectomy from the sheath up to the proximal IVC. Several passes of the catheter were performed. Intravascular ultrasound was then performed using the [employer] device. This allowed visualization of the lumen of the veins and confirmed the presence of severe compression and stenosis proximally at the confluence of the vena cavae and at several other areas going down into the common and external iliac vein on the left side, as well as in the femoral vein. In order to reach the proximal vena cava with angioplasty and stent catheters it was necessary to access the femoral vein in the thigh. The popliteal vein sheath was removed and a suture placed to close the wound. A pressure dressing was applied with Coban wrap. The patient was then turned to the supine position. The left thigh was prepped and draped and under ultrasound guidance a 11 Fr sheath placed into the femoral vein in the upper thigh. Balloon venoplasty of the IVC was then performed with a 14-mm balloon. Stenting of the veins was then undertaken using wall stents. An 18- mm x 90-mm length stent was placed from the proximal end of the left IVC with care not to advance too far into the confluence of the IVC, and this landed distally in the mid-common iliac vein. This was post dilated with 16-mm balloons. A 20-mm x 80 -mm wall stent was then placed with 1-cm overlap and extended down into the distal portion of the external iliac vein. This was post dilated also with a 16-mm balloon. Repeat venography now revealed patent flow from the popliteal vein to the inferior vena cava but with continued irregularity of the femoral vein, which was also seen with repeat IVUS imaging. The vein was balloon dilated with a 14-mm balloon with some improvement but still significant irregularity. Decision was made not to place another stent extending into the femoral vein due to concerns over compression as the patient is athletic. Therefore, the remaining wires and sheaths were removed, and a suture of 3-0 nylon placed to close the skin opening and pressure dressing applied with an Moses wrap. Patient was then transported to the recovery room in stable condition. Radha [id number] MTDD
--- NOTE | 2017-03-16 20:45 | OP ---
DATE OF OPERATION: 03/16/2017 SURGEON: Ruddy Long MD PROCEDURE: Retrieval of inferior vena cava filter. PREOPERATIVE DIAGNOSIS: History of deep vein thrombosis with recent thrombolysis. POSTOPERATIVE DIAGNOSIS: History of deep vein thrombosis with recent thrombolysis. ANESTHESIA: Fractional. ANESTHESIOLOGIST: Sujatha Campbell CRNA FINDINGS: The IVC filter in the right IVC was unremarkable. Following removal, the filter had a small amount of fibrinous thrombus on its struts. DESCRIPTION OF OPERATIVE PROCEDURE: Following routine patient identification with side and site verification, intravenous sedation was established. The right neck and chest were prepped with ChloraPrep. Timeout was performed. Next, 1% Xylocaine was infiltrated in the neck. Using real-time duplex imaging, the right internal jugular vein was identified, and a micropuncture needle used to cannulate the vein under ultrasound guidance. A microwire was advanced centrally towards the heart, and the needle was exchanged for a 5-Samoan catheter. A long wire was then advanced through the right atrium into the inferior vena cava and directed into the right inferior vena cava. The tract around the wire was then dilated, and the long 10-Samoan sheath was advanced over the wire and positioned just proximal to the filter. Due to the patient's renal insufficiency, decision was made to proceed without venogram. The snare was then extended through the catheter and used to grasp the hook on the end of the filter. This sheath was then advanced down over the filter, and as the filter collapsed, it was advanced distally to disengage the wall of the vein and withdraw it within the sheath. The sheath, snare, and filter were then removed as one from the neck and pressure applied and the bleeding ceased. A sterile dressing was applied, and the patient was taken to the recovery room in stable condition. RUDDY LONG M.D. [id number]
[2017-03-16] MEDS: APIXABAN 5 MG TABLET PO SCH ×2 (21:58→21:59)
[2017-03-17] MEDS: SODIUM CHLORIDE 1,000 ML IV SCH (05:51)
[2017-03-17 07:53] LABS: MCHC 33.9 g/dl (32.0-35.9); MEAN CELL VOLUME 91.5 fl (80-96); MEAN PLT VOLUME 7.5 fl (7.5-11.1); PLATELET COUNT 252 K/MM3 (134-434); RDW 14.9 % (11.9-15.9)
[2017-03-17 08:45] LABS: ANION GAP 12 (8-16); CALCIUM 7.6 mg/dL (8.5-10.1); CO2 22 mmol/L (21-32); GLUCOSE,RANDOM 90 mg/dL (74-106)
[2017-03-17 08:50] LABS: MAGNESIUM 1.8 mg/dL (1.8-2.4); PHOSPHOROUS 4.1 mg/dL (2.5-4.9)
[2017-03-17] MEDS ORDERED: PT OWN MED DRAWER 7, Y5N ONE ×2 (10:14→12:50)
[2017-03-17] MEDS: APIXABAN 5 MG TABLET PO SCH (10:17)
[2017-03-17] MEDS: METOPROLOL TARTRATE 25 MG TABLET (FP) PO SCH (10:18)
--- NOTE | 2017-03-17 12:00 | PN ---
Progress Note (short form) - Note Progress Note: Renal follow up for LENORE Pt seen and examined at the bedside awake and alert no sob, chest pain, abd pain, N/V/D making urine Vital Signs Temperature 97.7 F 03/17/17 06:00 Pulse Rate 70 03/17/17 06:00 Respiratory Rate 18 03/17/17 06:00 Blood Pressure 140/87 03/17/17 06:00 O2 Sat by Pulse Oximetry (%) 100 03/16/17 21:00 Intake & Output 03/14/17 03/15/17 03/16/17 03/17/17 23:59 23:59 23:59 23:59 Intake Total 2995.8 2088 975 1300 Output Total 1175 900 601 500 Balance 1820.8 1188 374 800 Weight 184 lb 3.2 oz 184 lb 3.2 oz NAD awake and alert RRR, No M/R CTA, no rales soft NT/ND left LE in wrap CBC, BMP 03/17/17 06:45 03/17/17 06:45 Current Medications Apixaban (Eliquis -) 5 mg PO BID [facility] Last Admin: 03/17/17 10:17 Dose: 5 mg Sodium Chloride (Normal Saline -) 1,000 mls @ 75 mls/hr IV ASDIR [facility] Last Admin: 03/17/17 05:51 Dose: 75 mls/hr Metoprolol Tartrate (Lopressor -) 12.5 mg PO BID [facility] Last Admin: 03/17/17 10:18 Dose: 12.5 mg Ondansetron HCl (Zofran Injection) 4 mg IVPUSH Q6H PRN PRN Reason: NAUSEA AND/OR VOMITING Promethazine HCl (Phenergan Injection -) 12.5 mg IVPUSH Q6H PRN PRN Reason: NAUSEA-FOR RESCUE AFTER 15 MIN 56 year old gentleman with PMhx of Hypertension, open repair of a large abdominal aortic and bilateral iliac aneurysms with aorta to right iliac and left femoral bypass who presented with leg swelling and found to have a large thrombosis of the LE extending to the left sided IVC. #Acute Renal Failure with Suspected ATN in setting of contrast exposure Cr yari to 3 today, pt is non-oliguric pt evolemic at the present time pt would like to be discharged and follow up as outpatient given pt does not require IVF or acute intervention apart form observation it is reasonable to monitor the renal function as a outpatient pt advised to do labs tomorrow and given a script to do so advised to avoid NSIADs and maintain good oral intake of fluids #Large LE thrombosis management per Vascular Sx s/p TPA #Hypertension Bp reasonable no TATIANA/ARB given kidney injury Thank you Edmundo Burciaga DO
--- NOTE | 2017-03-17 12:08 | PN ---
Progress Note (short form) - Note Progress Note: No complaints. VSS Left leg much less swollen, non-tender. Labs reviewed, Hgb stable, Cr increase to 3.0 Imp: s/p thrombolysis left IVC, iliac and femoral veins with stenting IVC and iliac. Good response to therapy. Now on PO Eliquis. Rec: OK for discharge. He will need Class II stockings. I will see in my office in 1 week. Problem List - Problems (1) DVT (deep venous thrombosis) Code(s): I82.409 - ACUTE EMBOLISM AND THOMBOS UNSP DEEP VN UNSP LOWER EXTREMITY Qualifiers: Qualified Code(s): I82.422 - Acute embolism and thrombosis of left iliac vein
--- NOTE | 2017-03-17 12:11 | DS ---
Physical Exam: SUBJECTIVE: Patient seen and examined. asymptomatic. states pain is controlled. denies CP, SOB, fever, chills, N/V/C/D OBJECTIVE: Vital Signs Period Temp Pulse Resp BP Sys/Mccormick Pulse Ox Last 24 Hr 97.7 F-99.1 F 66-78 12-18 124-153/72-89 98-100 PHYSICAL EXAM GENERAL: The patient is awake, alert, and fully oriented, in no acute distress. HEAD: Normal with no signs of trauma. EYES: PERRL, extraocular movements intact, sclera anicteric, conjunctiva clear. ENT: Ears normal, nares patent, oropharynx clear without exudates, moist mucous membranes. NECK: Trachea midline, full range of motion, supple. LUNGS: Breath sounds equal, clear to auscultation bilaterally, no wheezes, no crackles, no accessory muscle use. HEART: Regular rate and rhythm, S1, S2 without murmur, rub or gallop. ABDOMEN: Soft, nontender, nondistended, normoactive bowel sounds, no guarding, no rebound, no hepatosplenomegaly, no masses. EXTREMITIES: 2+ pulses, warm, well-perfused, no edema. R groin with bruising. no hematoma no active bleeding NEUROLOGICAL: Cranial nerves II through XII grossly intact. Normal speech, gait not observed. PSYCH: Normal mood, normal affect. SKIN: Warm, dry, normal turgor, no rashes or lesions noted. LABS Laboratory Results - last 24 hr 03/16/17 03/16/17 03/16/17 07:20 10:40 23:30 WBC RBC Hgb Hct MCV MCH MCHC RDW Plt Count MPV Total Counted 100 Neutrophils % (Manual) 71 D Band Neuts % (Manual) 4 Lymphocytes % (Manual) 13 D Monocytes % (Manual) 8 Eosinophils % (Manual) 3 Sodium Potassium Chloride Carbon Dioxide Anion Gap BUN Creatinine Random Glucose Calcium Phosphorus Magnesium Urine Creatinine 82.4 Stool Occult Blood Negative 03/17/17 03/17/17 06:45 06:45 WBC 10.0 RBC 2.75 L Hgb 8.5 L Hct 25.2 L MCV 91.5 MCH 31.0 MCHC 33.9 RDW 14.9 Plt Count 252 D MPV 7.5 Total Counted Neutrophils % (Manual) Band Neuts % (Manual) Lymphocytes % (Manual) Monocytes % (Manual) Eosinophils % (Manual) Sodium 141 Potassium 3.9 Chloride 107 Carbon Dioxide 22 Anion Gap 12 BUN 27 H Creatinine 3.0 H Random Glucose 90 Calcium 7.6 L Phosphorus 4.1 D Magnesium 1.8 Urine Creatinine Stool Occult Blood HOSPITAL COURSE: Date of Admission:03/10/17 Date of Discharge: 03/17/17 Admitting Diagnosis: Extensive LLE DVT, contrast induced nephropathy Procedures 03/13 IVC filter placement. EKOS thrombolysis catheter into L popliteal vein, Venogram popliteal vein and IVC. 03/14 suction theombectomy, venoplasty, stent placement into L IVC, iliac veins 03/16 removal of IVC filter Pre hospital course 6 y/o man with a past medical history of HTN, recent Triple AAA repair (72hrs ago). Who presents to the ED with LLE edema x 1 day. Patient reports having AAA surgery 3 days ago and is normally an active person- cycling and hiking. Patient reports resuming cycling and hiking 4.5mi doing over 10,000 steps daily , he noticed yesterday that his left leg was swollen and reddened. Patient denies calf pain, SOB, CP. Patient denies fever, chills, cough, dizziness, AP, N /V/D, constipation, dysuria ER course was notable for: (1) Doppler of BLE- Occulsive Thrombosis L- common femoral, femoral profunda and popliteal veins in the LLE. No DVT RLE (2) Abdominal CT- Thrombus L-sided inferior vena cava, left common iliac, external iliac, internal iliac, bladder distention 500ml, 5-6mm nonobstructing left renal calculus Subsequent hospital course Admitted to medicine. imaging studies as shown above. was started on hep ggt. Vascular surgery was consulted. underwent TPA infusion for 24H, clot retrieval and temporary IVC filter placement which was removed yesterday. pt was temporarily monitored in ICU. pt tolerated procedures well. course complicated by development of Contrast induced nephropathy and acute blood loss anemia. no blood transfusions during this stay. pt adamant on leaving. lengthy discussion between nephrology and pt and pt agreed to daily labs and montoring in office for kidney function. also need to monitor hgb while on blood thinner. d/c on eliquis. Minutes to complete discharge: 50 Discharge Summary Reason For Visit: DVT Current Active Problems DVT (deep venous thrombosis) (Acute) Hematuria (Acute) Condition: Improved - Instructions Diet, Activity, Other Instructions: You were admitted due to an extensive clot in your left leg. You have underwent thrombolysis of the clot and stent placement in the leg. As a complication of the procedure your kidneys were significantly affected. It is very important that you continue to follow up with the renal doctor to monitor your blood work daily to ensure that your kidney function improves. You have been started on a blood thinner. this will increase your risk of bleeding. Avoid taking any NSAID products while taking this. (ibuprofen, aleive , naproxen). PLease stop taking lisinopril for your blood pressure at this time until you are instructed to re-start it. Follow up with your primary care doctor in [address] up [address] Burciaga tomorrow as discussed. Referrals: Omaira Ramesh MD [Primary Care Provider] - Edmundo Burciaga MD [Staff Physician] - Disposition: HOME - Home Medications Comprehensive Discharge Medication List: Ambulatory Orders Metoprolol Tartrate [Lopressor -] 25 mg PO BID #60 tablet 01/03/17 Apixaban [Eliquis -] 5 mg PO BID #60 tablet 03/17/17 Miscellaneous Drug Not In Syst [Outpatient Lab Test] 1 each ASDIR #1 misc 01/23 This patient is new to me today: Yes Date on this admission: 03/17/17 Emergency Visit: Yes ED Registration Date: 03/10/17 Care time: The patient presented to the Emergency Department on the above date and was hospitalized for further evaluation of their emergent condition. Critical Care patient: No - Discharge Referral Referred to [facility] Med P.C.: No
[2017-03-17 13:22] VITALS: BP 153/85; PULSE 74; TEMP 98.6
--- NOTE | 2017-03-18 11:09 | PATH ---
Surgical Pathology Report Patient Name: KRISHNA TRUJILLO Med. Rec. #: [id number] /Age/Gender: 1960 (Age: 56) / M Account: [id number] Location: [address] [place] [address]/[facility] Taken: 03/16/2017 Received: 03/17/2017 Reported: 03/18/2017 Physicians: Ruddy Duncan M.D. 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 Electronically Signed Mark Becker M.D. Gross Description Received fresh labeled "IVC filter," is a 5.5 cm in length guaman metallic foreign body, consistent with an IVC filter. No soft tissue is present. No sections are submitted, gross only. 03/17/201703/17/2017
--- NOTE | 2017-03-18 11:56 | EKG ---
Test Reason : Blood Pressure : / mmHG Vent. Rate : 077 BPM Atrial Rate : 077 BPM P-R Int : 150 ms QRS Dur : 100 ms QT Int : 396 ms P-R-T Axes : 041 051 042 degrees QTc Int : 448 ms NORMAL SINUS RHYTHM INCOMPLETE RIGHT BUNDLE BRANCH BLOCK WHEN COMPARED WITH ECG OF 28-DEC-2016 09:06, NO SIGNIFICANT CHANGE WAS FOUND Confirmed by ADELAIDA MATTHEWS MD ([id number]) on 03/18/2017 11:55:46 AM Referred By: Confirmed By:ADELAIDA MATTHEWS MD
== END 2017-03-17 14:13 | disposition home or self-care (01) | DRG 169 ==
LOC: JER 11:39 → JERBED 15:31 → J4W 23:02 → JERBED 03-13 15:25 → JICU 03-13 16:18 → J5S 03-15 14:40
PROVIDERS: ADMIT Internal Medicine; ATTEND Internal Medicine
PROC: 3E03317 Introduction of Other Thrombolytic into Peripheral Vein, Percutaneous Approach (ICD-10-PCS; 2017-03-13)
PROC: B50CYZZ Plain Radiography of Left Lower Extremity Veins using Other Contrast (ICD-10-PCS; 2017-03-13)
PROC: 06HN33Z Insertion of Infusion Device into Left Femoral Vein, Percutaneous Approach (ICD-10-PCS; 2017-03-13)
PROC: B51CYZA Fluoroscopy of Left Lower Extremity Veins using Other Contrast, Guidance (ICD-10-PCS; 2017-03-13)
PROC: 06H03DZ Insertion of Intraluminal Device into Inferior Vena Cava, Percutaneous Approach (ICD-10-PCS; principal; 2017-03-13 09:30)
PROC: 06HY33Z Insertion of Infusion Device into Lower Vein, Percutaneous Approach (ICD-10-PCS; 2017-03-13 09:30)
PROC: 06CN3ZZ Extirpation of Matter from Left Femoral Vein, Percutaneous Approach (ICD-10-PCS; 2017-03-14)
PROC: 06CY3ZZ Extirpation of Matter from Lower Vein, Percutaneous Approach (ICD-10-PCS; 2017-03-14)
PROC: 06C03ZZ Extirpation of Matter from Inferior Vena Cava, Percutaneous Approach (ICD-10-PCS; 2017-03-14)
PROC: 067G3DZ Dilation of Left External Iliac Vein with Intraluminal Device, Percutaneous Approach (ICD-10-PCS; 2017-03-14)
PROC: 06703DZ Dilation of Inferior Vena Cava with Intraluminal Device, Percutaneous Approach (ICD-10-PCS; 2017-03-14)
PROC: B54CZZA Ultrasonography of Left Lower Extremity Veins, Guidance (ICD-10-PCS; 2017-03-14)
PROC: 06PY3DZ Removal of Intraluminal Device from Lower Vein, Percutaneous Approach (ICD-10-PCS; 2017-03-16)
DX: I82.422 Acute embolism and thrombosis of left iliac vein (principal); I82.220 Acute embolism and thrombosis of inferior vena cava; I10 Essential (primary) hypertension; I71.4 Abdominal aortic aneurysm, without rupture; R31.0 Gross hematuria; I82.412 Acute embolism and thrombosis of left femoral vein; I82.432 Acute embolism and thrombosis of left popliteal vein; Z87.891 Personal history of nicotine dependence; N17.0 Acute kidney failure with tubular necrosis; D62 Acute posthemorrhagic anemia; N20.0 Calculus of kidney; N14.4 Toxic nephropathy, not elsewhere classified
CPT/HCPCS: 36415; 71010-TC; 74174-TC; 76000-TC; 76775-TC; 80048; 80053; 81003; 81015; 82272; 82436; 82550; 82570; 83735; 84100; 84300; 85025; 85027; 85384; 85610; 85730; 86850; 86900; 86901; 87086; 88300-TC; 93005; 93010; 93970-TC; 94760; 99284-25; J1644; J2997